=== PATIENT | male | born 1955 | race Caucasian/White ===

== ENCOUNTER 2022-03-24 10:24 | Outpatient (CLI) | payer MEDICARE, SELFPAY ==
[2022-03-24 20:00] LABS: NT Pro B Type Natriuretic Pept 93 pg/mL (5-100)
== END 2022-03-24 10:25 | disposition home or self-care (01) ==
PROVIDERS: Visit Provider Internal Medicine Cardiovascular Disease
DX: Q23.1 Congenital insufficiency of aortic valve (principal); R06.02 Shortness of breath
CPT/HCPCS: 36415; 83880

== ENCOUNTER 2022-04-01 09:09 | Outpatient (CLI) | payer MEDICARE, SELFPAY ==
[2022-04-01 19:26] LABS: Cholesterol 161 mg/dL (0-200); HDL Direct 54 mg/dL; Triglycerides 87 mg/dL (<150)
[2022-04-01 19:37] LABS: LDL Cholesterol Direct 75 mg/dL
== END 2022-04-01 09:10 | disposition home or self-care (01) ==
LOC: ANHGOSHLAB 09:12
PROVIDERS: Visit Provider Internal Medicine Cardiovascular Disease
DX: R73.09 Other abnormal glucose (principal); E78.5 Hyperlipidemia, unspecified
CPT/HCPCS: 36415; 80061

== ENCOUNTER 2022-11-19 09:01 | Outpatient (CLI) | payer MEDICARE, SELFPAY ==
[2022-11-19 09:43] LABS: Hematocrit 47.1 % (42.0-52.0); Hemoglobin 15.6 g/dL (14.0-18.0); Mean Corpuscular HGB Conc 33.1 g/dl (32-36); Mean Corpuscular Hemoglobin 31.3 pg (26-34); Mean Corpuscular Volume 94.4 fl (80-100); Mean Platelet Volume 9.5 fl (7.4-10.4); Platelet Count Result 250 k/mm3 (150-375); Red Blood Count 4.99 M/mm3 (4.6-6.20); Red Cell Distribution Width 12.8 % (11.5-14.5); White Blood Count 6.2 K/mm3 (4.5-10.0)
[2022-11-19 09:59] LABS: CRP 0.8 mg/dL (<1.0)
[2022-11-19 12:47] LABS: Erythrocyte Sedimentation Rate 4 mm/hr (0-20)
== END 2022-11-19 09:02 | disposition home or self-care (01) ==
PROVIDERS: Visit Provider Nurse Practitioner
DX: K51.90 Ulcerative colitis, unspecified, without complications (principal)
CPT/HCPCS: 36415; 85027; 85652; 86140

== ENCOUNTER 2023-02-19 09:26 | Outpatient (CLI) | payer MEDICARE, SELFPAY ==
[2023-02-19 14:42] LABS: NT Pro B Type Natriuretic Pept 47 pg/mL (19.9-100)
== END 2023-02-19 09:27 | disposition home or self-care (01) ==
PROVIDERS: Visit Provider Internal Medicine Cardiovascular Disease
DX: I35.0 Nonrheumatic aortic (valve) stenosis (principal); R06.09 Other forms of dyspnea
CPT/HCPCS: 36415; 83880

== ENCOUNTER 2023-03-24 01:16 | Day surgery (SDC) | payer MEDICARE, SELFPAY ==
[2023-03-10 13:27] VITALS: BMI 43.2
--- NOTE | 2023-03-22 09:32 | SUR.PREOP ---
Patient called regarding upcoming procedure. Reviewed preop instructions, appointment times, and procedure prep.
--- NOTE | 2023-03-23 15:17 | PM.HPGS ---
History of Present Illness History of Present Illness Consent: Risks, benefits, and alternatives have been discussed and questions answered. Patient agrees to proceed with procedure. Chief complaint: Ulcerative colitis, unspecified, without complicat Narrative: Ike Parker is a 67 year old male with chronic ulcerative colitis. He was diagnosed 25 years ago. He previously been under the care of Dr. Koenig, whom he has last seen when he had a colonoscopy 5 years ago. He has been maintained on sulfasalazine 1 g twice a day for many years. He also had adenomatous polyps removed at that time his last colonoscopy was advised to have repeat examination 2 years later. Review of Systems Review of Systems: All systems reviewed & are unremarkable except as noted in HPI and below PMFSH Past Medical History Medical History Aortic stenosis Hx of adenomatous colonic polyps Hypertension Obesity Ulcerative colitis Social History Social History Smoking status: Never smoker Alcohol intake: never Substance use: never Substance use type: does not use Living arrangements: alone Spiritual care concerns: No Meds Home Medications and Allergies Home Medications Medication Instructions Recorded Confirmed Type calcium carb-vit D3-minerals 600 600 tablet PO DAILY 10/07/22 03/10/23 History mg calcium-200 unit tablet folic acid 1 mg tablet 1 mg PO DAILY 10/07/22 03/10/23 History sulfasalazine 500 mg tablet 2 g PO DAILY 10/07/22 03/10/23 History atorvastatin 40 mg tablet mg 03/10/23 History hydrochlorothiazide 25 mg tablet 25 mg PO DAILY 03/10/23 03/10/23 History valsartan 160 mg tablet 40 mg PO DAILY 03/10/23 03/10/23 History Allergies Allergy/AdvReac Type Severity Reaction Status Date / Time No Known Allergies Allergy Verified 03/10/23 13:26 Exam Const: General: alert Orientation/consciousness: patient oriented x3 Resp: Auscultation: clear to auscultation bilaterally Cardio: Rhythm: regular rhythm GI: GI Palp: Yes Soft to palpation and No Tenderness to palpation present (GI) Neuro: General: patient oriented x3 Assessment and Plan Assessment and plan (1) Ulcerative colitis: Code(s): K51.90 - Ulcerative colitis, unspecified, without complications Status: Acute Assessment and Plan: Colonoscopy with possible biopsy or polypectomy or cautery or injection of substances. (2) Hx of adenomatous colonic polyps: Code(s): Z86.010 - Personal history of colonic polyps Status: Acute
[2023-03-24 13:04] VITALS: BP 137/80; PULSE 80; RESP 18; TEMP 36.3; O2SAT 98
--- NOTE | 2023-03-24 13:16 | P.PNAN_ITS ---
Anes - Initial Pre Proc Eval Procedure: Operation Date: 03/24/23 14:00 Proposed Procedures p Colonoscopy - Brent Rocha MD Date/Time: 03/24/23 13:16 Surgeon: Brent Rocha MD Pre Op Diagnosis: Ulcerative colitis, unspecified, without complicat Patient Data Age: 67 Gender: M Height: 1.78 m Weight: 139.9 kg Last Vital Signs Temp 97.3 F L 03/24/23 13:04 Pulse 80 03/24/23 13:04 Resp 18 03/24/23 13:04 BP 137/80 03/24/23 13:04 Pulse Ox 98 03/24/23 13:04 O2 Del Method Room Air 03/24/23 13:04 Allergies Allergy/AdvReac Type Severity Reaction Status Date / Time No Known Allergies Allergy Verified 03/24/23 13:02 Home Medications Medication Instructions Recorded Confirmed Type calcium carb-vit D3-minerals 600 600 tablet PO DAILY 10/07/22 03/24/23 History mg calcium-200 unit tablet folic acid 1 mg tablet 1 mg PO DAILY 10/07/22 03/24/23 History sulfasalazine 500 mg tablet 2 g PO DAILY 10/07/22 03/24/23 History atorvastatin 40 mg tablet 40 mg PO DAILY 03/10/23 03/24/23 History hydrochlorothiazide 25 mg tablet 25 mg PO DAILY 03/10/23 03/24/23 History valsartan 160 mg tablet 40 mg PO DAILY 03/10/23 03/24/23 History Patient hx anesthesia problems: none Family hx anesthesia problems: none Results Review: All pre-operative results and documents have been reviewed as part of the pre- operative evaluation. [facility] Past Medical History Medical History Aortic stenosis Hx of adenomatous colonic polyps Hypertension Obesity Ulcerative colitis Social History Social History Smoking status: Never smoker Alcohol intake: never Substance use: never Substance use type: does not use Living arrangements: alone Spiritual care concerns: No Anes - Eval Final PreProcedure Day of Procedure 03/24/23 13:16 Patient weight: morbidly obese Heart: regular rate and rhythm Lungs: clear to auscultation Airway: Mallampati scale class II Neurological: alert and oriented Last oral intake: >/= 8 hours ASA classification: III Emergent: no Anesthetic plan: proceed Anesthesia type and monitoring: general GIVS and standard monitoring Results Review: All pre-operative results and documents have been reviewed as part of the pre- operative evaluation. Informed Consent: The patient's anesthetic plan and its attendant risks and benefits were discussed with the patient/family/POA. Questions were solicited and answers provided to the satisfaction of the patient/family/POA.
[2023-03-24] MEDS: LACTATED RINGERS 1,000 ML 150 ML IV CONT (13:17)
[2023-03-24 13:42] VITALS: BP 100/61; PULSE 79; RESP 16; O2SAT 92
[2023-03-24 13:52] VITALS: BP 109/74; PULSE 78; RESP 19; O2SAT 97
[2023-03-24 14:02] VITALS: BP 122/77; PULSE 75; RESP 19; O2SAT 98
== END 2023-03-24 14:17 | disposition home or self-care (01) ==
PROVIDERS: PCP Family Medicine; Visit Provider Internal Medicine Gastroenterology
PROC: 0DJD8ZZ Inspection of Lower Intestinal Tract, Via Natural or Artificial Opening Endoscopic (ICD-10-PCS; CPT 45378; principal; 2023-03-24 14:00)
DX: K51.90 Ulcerative colitis, unspecified, without complications (principal); K64.8 Other hemorrhoids; K57.30 Diverticulosis of large intestine without perforation or abscess without bleeding; Z86.010 Personal history of colon polyps; I10 Essential (primary) hypertension; E66.01 Morbid (severe) obesity due to excess calories; Z68.41 Body mass index [BMI] 40.0-44.9, adult
CPT/HCPCS: 45380; 88305; J2704; J7120

== ENCOUNTER 2024-10-25 08:51 | Outpatient (CLI) | payer MEDICARE, SELFPAY ==
--- OUTSIDE RECORDS SUMMARY | 2024-10-25 09:01 | XMS_ITS | Clinical Summary ---
Author Organization [facility] Address [address] [place] [address] Care Team Providers Care Campaign Marketing Manager Name Role Phone Dani Elam MD Primary Care Provider [phone] Miscellaneous, Not In File Unavailable Unava ilable Allergies No known active allergies Medications valsartan (DIOVAN) 320 mg tablet Take 1 tablet by mouth daily 9 Active aspirin 325 mg tabletIndication s:cerebral ischemia,Cerebra l Ischemia Take 1 tablet (325 mg total) by mouth daily 30 tablet 11 9 Active atorvastatin (LIPITOR) 40 mg tablet Take 1 tablet (40 mg total) by mouth daily 3 Active hydroCHLOROthiaz janie (HYDRODIURIL) 25 mg tablet Take 1 tablet (25 mg total) by mouth daily 3 Active cholecalciferol (VITAMIN D-3) 57703 unit tablet Take 0.12 tablets (1,200 Units total) by mouth daily Active multivitamin,tx- plnf-Vm-BA-min 27-0.4 mg tablet Take 1 tablet by mouth daily Active azelastine (ASTELIN) 137 mcg (0.1 %) nasal spray INSTILL 2 SPRAYS IN EACH NOSTRIL DAILY BED TIME 5 Active chlorhexidine (PERIDEX) 0.12 % oral rinseIndications :Mouth Infection Prevention Apply 15 mL to the mouth or throat 3 (three) times a day for 5 days 225 mL 5 12/02/19 25 Active mupirocin (BACTROBAN) 2 % ointmentIndicati ons:Methicillin- Resistant S. Aureus Nasal Colonization Apply to each nostril 2 (two) times a day for 5 days Apply topically 2 (two) times a day Apply to both nostrils twice daily for 5 days prior to surgery 22 g 5 12/02/19 25 Active sulfaSALAzine (AZULFIDINE) 500 mg tablet Take 500 mg by mouth 4 (four) times a day 09/27/19 25 Discontin ued(Thera py completed ) folic acid (FOLVITE) 1 mg tablet Take 1 tablet by mouth daily 9 09/27/19 25 Discontin ued(Thera py completed ) simvastatin (ZOCOR) 40 mg tablet Take 1 tablet by mouth nightly 9 09/27/19 25 Discontin ued(Thera py completed ) Hospital, Clinic, or Other Facility Administered Medication Ordered Dose Route Frequency Start Date End Date Status perflutren protein-a (OPTISON) 3 mL in sodium chloride 0.9% 8 mL syringe 1 - 8 mL IV Once in imaging 09/26/2024 09/26/2024 Ended Active Problems Problem Noted Date Diagnosed Date Nonrheumatic aortic valve stenosis 10/23/2024 Essential hypertension 02/01/2019 Hyperlipidemia 02/01/2019 Ulcerative colitis without complications 019 Murmur, cardiac 02/01/2019 Transient memory loss 02/01/2019 Class 3 severe obesity in adult 02/01/2019 Transient alteration of awareness Encounters Date Type Department Care Team Description 10/24/2024 Orders Only [facility] Cardiothoracic Surgery [address] [place] [address] Advanced Medicine 8th Floor [address] Room [address] [place] [phone] Daniel Pedraza MD 10/23/2024 Orders Only [facility] Cardiothoracic Surgery [facility] Medicine 8th Floor [address] Room [address] [place] [phone] Daniel Pedraza MD Nonrheumatic aortic valve stenosis (Primary Dx) 10/23/2024 Documentation [facility] Cardiology [facility] Medical Office Building [address] [place] [phone] Sindy Fernandes NP 10/20/2024 Telephone [facility] Cardiology [address] [place] [address] Advanced Medicine 8th [place] [address] [place] [phone] Marty Norman MD 10/06/2024 Telephone [facility] Cardiology [address] [facility] Advanced Medicine 8th [place] [address] [place] [address] Marty Norman MD 09/28/2024 Telephone [facility] Cardiology [address] [facility] 8th [place] [address] [place] [address] Loretta Whalen RN 09/26/2024 2:40 PM CDT Lab [facility] [address] [address] [address] Essential hypertension; Abnormal finding of blood chemistry, unspecified; Abnormal coagulation profile 09/26/2024 2:20 PM CDT - 09/26/2024 11:59 PM CDT Hospital Encounter [facility] Imaging [address] [address] [address] María Oliveros MD Aortic valve stenosis, etiology of cardiac valve disease unspecified Discharge Disposition: Discharge to home or self care 09/26/2024 1:00 PM CDT Office Visit [facility] Surgery [address] [place] [address] [address] [place] [address] Aortic valve stenosis, severe 09/26/2024 1:00 PM CDT Office Visit [facility] Cardiology [address] [place] [address] Office Building [address] [place] [address] Marty Norman MD Essential hypertension (Primary Dx); Abnormal finding of blood chemistry, unspecified; Abnormal coagulation profile; Hyperlipidemia, unspecified hyperlipidemia type; Class 3 severe obesity in adult; Transient memory loss 09/26/2024 10:00 AM CDT Ancillary Procedure [facility] [address] [place] [address] [address] [place] [address] Aortic valve stenosis, etiology of cardiac valve disease unspecified 09/26/2024 Results Follow-Up [facility] Cardiology [address] [place] [address] Office [facility] [address] [place] [address] Marty Norman MD ECG 12 lead 09/11/2024 1:49 PM CDT - 09/11/2024 11:59 PM CDT Hospital Encounter [facility] [address] [place], [place] [phone] Discharge Disposition: Discharge to home or self care 09/06/2024 Telephone [facility] Cardiology [address] [facility] Advanced Medicine 8th [place] [address] [place] [phone] GibbsLinda zamora 09/06/2024 Telephone [facility] Cardiology [facility] Advanced Medicine 8th [place] [address] [place] [address] Martin Mathews, URIEL 08/17/2024 Telephone [place] [phone] [facility] Advanced [facility] 8th [place] [address] [place] [address] Michelle Thomas from Last 3 Months Immunizations Immunization Administration Dates Next Due Influenza, Quadrivalent, Spl it, Preservative Free, Intramuscular 02/01/2019 Social History Tobacco Use Types Packs/Day Years Used Date Smoking Tobacco: Never Smokeless Tobacco: Never Alcohol Use Standard Drinks/Week Comments Never 0 (1 standard drink = 0.6 oz pur e alcohol) AUDIT-C Answer Date Recorded Frequency of Alcohol Consumption Never 01/31/2019 Average Number of Drinks Not on file 019 Frequency of Binge Drinking Not on file 01/11 PHQ-2 Answer Date Recorded PHQ-2 Score 0 01/31/2019 Sex and Gender Information Value Date Recorded Sex Assigned at Not on file 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 Gender Identity Not on file Sexual Orientation Not on file Obstetrics History Last Filed Vital Signs Vital Sign Reading Time Taken Comments Blood Pressure 138/92 09/26/2024 12:46 PM CDT Pulse 69 09/26/2024 12:46 PM CDT Temperature 36.9 C (98.5 F) 02/01/2019 3:24 PM CDT Respiratory Rate 18 02/01/2019 3:24 PM CDT Oxygen Saturation 98% 09/26/2024 12: 46 PM CDT Inhaled Oxygen Concentration - - Weight 137.6 kg (303 lb 6.4 oz) 025 12:46 PM CDT Height 177.8 cm (5' 10) 09/26/2024 12: 46 PM CDT Body Mass Index 43.53 09/26/2024 12:46 PM CDT Plan of Treatment Upcoming Encounters Date Type Department Care Team (Latest Contact Info) Description 11/15/2024 10:05 AM CDT Hospital Encounter [facility] [address] [place] [address] Rolando Reddy MD [address] [place] [address] Nonrheumatic aortic valve stenosis 11/15/2024 10:05 AM CDT - 11/15/2024 11:20 AM CDT Surgery [facility] [address] [place] [address] Rolando Reddy MD [address] [place] [address] LEFT HEART CATHETERIZATION WITH CORONARY ANGIOGRAPHY AND WITH OR WITHOUT LEFT VENTRICULOGRAM [id number] 12/01/2024 7:00 AM CDT Hospital Encounter [facility] Operating Room 1 [place] [address] Daniel Pedraza MD [address] [facility] [id number] [place] [address] 12/01/2024 7:00 AM CDT - 12/01/2024 2:10 PM CDT Surgery [facility] Operating Room [address] [place] [address] Daniel Pedraza MD [address] [facility] [id number] [place] [address] REPLACEMENT AORTIC VALVE/ROOT-AVR WITH POSS ANNULAR ENLARGEMENT Scheduled Procedures Name Priority Associated Diagnoses Date/Ti me REPLACEMENT AORTIC VALVE/ROOT Nonrheumatic aortic valve stenosis 12/01/2024 7:00 AM CDT REPAIR ANEURYSM ASCENDING AORTIC - HYBRID ROOM Nonrheumatic aortic valve stenosis 12/01/2024 7:00 AM CDT Health Maintenance Due Date Last Done Comments Colon Cancer Screening-Colonoscopy 1955 Fall Risk Assessment 1955 Hepatitis C Screening 1955 Hepatitis B Screening 1972 Well Visit 65+ 2019 Depression Screening 02/01/2020 01/31/2019 Pneumococcal vaccine 65+ (2 of 2 - PCV) 02/03/2024 02/02/2023 Covid-19 Vaccine (2023-2 5 season) 2024 01/29/2024, 03/13/2023, 01/24/2022, Additional history exists Influenza Vaccine (#1) 2024 , 02/02/2023, 01/24/2022, Additional history exists DTaP/Tdap/Td Vaccine (2 - Td or Tdap) 01/28/2034 01/29/2024 Zoster Vaccine Completed 03/13/2023, 02/02/2023 Goals Goal Patient Goal Type Associated Problems Recent Progress Patient-Stated? Author Autogenerat ed Goal Care Plan Autogenerated Problem No Ely Rosa Autogenerat ed Goal Care Plan Autogenerated Problem No Brandy [place] RN Procedures Procedure Name Priority Date/Time Associated Diagnosis Comments CT TAVR Schedule Routine, Read Routine (OP Routine) 09/26/2024 2:48 PM CDT Aortic valve stenosis, etiology of cardiac valve disease unspecified POC ISTAT Routine 09/26/2024 2:45 PM CDT EGFR Routine 09/26/2024 2:36 PM CDT Essential hypertension DIFFERENTIAL AUTO Routine 09/26/2024 2:3 6 PM CDT Essential hypertension CRP, HIGH SENSITIVITY Routine 09/26/2024 2:36 PM CDT Essential hypertension PROTIME-INR Routine 09/26/2024 2:36 PM CDT Essential hypertension Abnormal coagulation profile HEMOGLOBIN A1C Routine 09/26/2024 2:36 PM CDT Essential hypertension Abnormal finding of blood chemistry, unspecified LIPOPROTEIN A (LPA) Routine 09/26/2024 2 :36 PM CDT Essential hypertension CBC WITH AUTO DIFFERENTIAL Routine 09/26/2024 2:36 PM CDT Essential hypertension COMPREHENSIVE METABOLIC PANEL Routine 09/26/2024 2:36 PM CDT Essential hypertension PRO B-TYPE NATRIURETIC PEPTIDE Routine 09/26/2024 2:36 PM CDT Essential hypertension ECG 12-LEAD Routine 09/26/2024 12:44 PM CDT Essential hypertension TRANSTHORACIC ECHO (TTE) COMPLETE W DOPPLER/CF W CONTRAST Routine 09/26/2024 10:44 AM CDT Aortic valve stenosis, etiology of cardiac valve disease unspecified US TRANSFER OF OUTSIDE FILMS Routine 09/11/2024 1:49 PM CDT from Last 3 Months Results * CT TAVR (09/26/2024 2:48 PM CDT) Anatomical Region Laterality Modality Chest N/A Computed Tomogra phy 09/26/2024 3:40 PM CDT Impressions 09/27/2024 9:39 AM CDT 1. Aortic annulus, and abdominal aortic, common iliac, external iliac, and femoral artery measurements in preparation for TAVR procedure as described above. 2. Aortic valve calcium score: Agatston 9799, volume 7888 mm3. 3. Mildly dilated ascending thoracic aorta measuring up to 4.2 cm in diameter. Dictated by: Prachi Granger MD The radiology attending physician has personally reviewed this study, and had reviewed and/or edited this written report and agrees with it. Electronically signed by: Daniel Carpio M.D. Narrative 09/27/2024 9:39 AM CDT EXAMINATION: CT TAVR HISTORY: Severe aortic stenosis, pre-TAVR procedure. TECHNIQUE: Heart CT and CT angiogram of the abdomen and pelvis performed during intravenous administration of 125 mL of Optiray 350 per the TAVR Protocol. Images were transferred to an independent workstation for additional 3D post-processing. COMPARISON: None available FINDINGS: Annulus and thoracic aortic measurements (in systole): Aortic valve annulus: Area 669 mm2; circumference 99 mm; 32 mm maximum diameter x 22 mm minimum diameter Sinuses of Valsalva: 42 mm x 41 mm x 40 mm [id number] Sinotubular junction: 39 mm x 40 mm Ascending aorta: 42 mm x 41 mm Distance to RCA ostium from aortic valve annulus: 24 mm Distance to left main ostium from annulus: 13 mm Deployment angle: 12 UPPER SORBIAN, 33 Caudal Right coronary sinus height: 25 mm Left coronary sinus height: 22 mm Non-coronary sinus height: 27 mm Aortic valve calcium score: Agatston 9799, volume 7888 mm3 There is moderate left ventricular outflow tract calcification. There is mild mitral annular calcification. Coronary arteries: Anomalous coronary artery course: No Left main atherosclerosis: None LAD atherosclerosis: Mild Circumflex atherosclerosis: None RCA atherosclerosis: None Abdominal aortic and pelvic arterial smallest diameter measurements (made from centerline curved MPRs): Infrarenal aorta: 17 mm x 18 mm. There is no calcification. Right common iliac artery: 12 mm x 12 mm. There is no calcification. Left common iliac artery: 11 mm x 12 mm. There is no calcification. Right external iliac artery: 9 mm x 9 mm. There is no calcification. Left external iliac artery: 9 mm x 9 mm. There is no calcification. Right common femoral artery: 10 mm. There is no calcification. Left common femoral artery: 9 mm. There is no calcification. Other findings: Chest: No thoracic lymphadenopathy. Heart size is normal, no pericardial effusion. Normal caliber main pulmonary artery. Normal thyroid. Nondistended esophagus. Central airways widely patent. No pulmonary consolidation, pleural effusion, or pneumothorax. No suspicious pulmonary nodule. Abdomen/pelvis: No focal hepatic lesion. Cholelithiasis without findings of acute cholecystitis. Portal veins are patent. No biliary ductal dilatation. Normal spleen, pancreas, adrenal glands. Kidneys enhance symmetrically without hydronephrosis. Normal urinary bladder and prostate gland. Small large bowel normal caliber without obstruction. Normal stomach and duodenum. No abdominal or pelvic lymphadenopathy. No intraperitoneal free fluid or free air. The abdominal aorta is non-aneurysmal. No suspicious osseous lesion. Procedure Note Daniel Carpio MD PhD - 09/27/2024 EXAMINATION: CT TAVR HISTORY: Severe aortic stenosis, pre-TAVR procedure. TECHNIQUE: Heart CT and CT angiogram of the abdomen and pelvis performed during intravenous administration of 125 mL of Optiray 350 per the TAVR Protocol. Images were transferred to an independent workstation for additional 3D post-processing. COMPARISON: None available FINDINGS: Annulus and thoracic aortic measurements (in systole): Aortic valve annulus: Area 669 mm2; circumference 99 mm; 32 mm maximum diameter x 22 mm minimum diameter Sinuses of Valsalva: 42 mm x 41 mm x 40 mm [id number] Sinotubular junction: 39 mm x 40 mm Ascending aorta: 42 mm x 41 mm Distance to RCA ostium from aortic valve annulus: 24 mm Distance to left main ostium from annulus: 13 mm Deployment angle: 12 UPPER SORBIAN, 33 Caudal Right coronary sinus height: 25 mm Left coronary sinus height: 22 mm Non-coronary sinus height: 27 mm Aortic valve calcium score: Agatston 9799, volume 7888 mm3 There is moderate left ventricular outflow tract calcification. There is mild mitral annular calcification. Coronary arteries: Anomalous coronary artery course: No Left main atherosclerosis: None LAD atherosclerosis: Mild Circumflex atherosclerosis: None RCA atherosclerosis: None Abdominal aortic and pelvic arterial smallest diameter measurements (made from centerline curved MPRs): Infrarenal aorta: 17 mm x 18 mm. There is no calcification. Right common iliac artery: 12 mm x 12 mm. There is no calcification. Left common iliac artery: 11 mm x 12 mm. There is no calcification. Right external iliac artery: 9 mm x 9 mm. There is no calcification. Left external iliac artery: 9 mm x 9 mm. There is no calcification. Right common femoral artery: 10 mm. There is no calcification. Left common femoral artery: 9 mm. There is no calcification. Other findings: Chest: No thoracic lymphadenopathy. Heart size is normal, no pericardial effusion. Normal caliber main pulmonary artery. Normal thyroid. Nondistended esophagus. Central airways widely patent. No pulmonary consolidation, pleural effusion, or pneumothorax. No suspicious pulmonary nodule. Abdomen/pelvis: No focal hepatic lesion. Cholelithiasis without findings of acute cholecystitis. Portal veins are patent. No biliary ductal dilatation. Normal spleen, pancreas, adrenal glands. Kidneys enhance symmetrically without hydronephrosis. Normal urinary bladder and prostate gland. Small large bowel normal caliber without obstruction. Normal stomach and duodenum. No abdominal or pelvic lymphadenopathy. No intraperitoneal free fluid or free air. The abdominal aorta is non-aneurysmal. No suspicious osseous lesion. IMPRESSION: 1. Aortic annulus, and abdominal aortic, common iliac, external iliac, and femoral artery measurements in preparation for TAVR procedure as described above. 2. Aortic valve calcium score: Agatston 9799, volume 7888 mm3. 3. Mildly dilated ascending thoracic aorta measuring up to 4.2 cm in diameter. Dictated by: Prachi Granger MD The radiology attending physician has personally reviewed this study, and had reviewed and/or edited this written report and agrees with it. Electronically signed by: Daniel Carpio M.D. María Oliveros MD IMG CT PROCEDURES Final R esult * POC ISTAT (09/26/2024 2:45 PM CDT) [facility] Creatinine, POC, bld 1.0 0.6 - 1.3 mg/dL POC Device Number [id number] [facility]ERT[facility] POC Performer [id number] [facility] HAGAN Blood 09/26/2024 2:45 PM CDT 09/26/2024 2:45 PM CDT María Oliveros MD LAB BLOOD ORDERABLES Page l Result [facility] [address] [facility]. [place] [address] * eGFR (09/26/2024 2:36 PM CDT) [facility] eGFR >90 >=60 mL/min/1. 73 m2 Comment: Interpretive Data Reference Interval Normal >/= 90 mL/min/1.73m2 Mildly decreased* 60 - 89 mL/min/1.73m2 Mildly to moderately decreased 45 - 59 mL/min/1.73m2 Moderately to severely decreased 30 - 44 mL/min/1.73m2 Severely decreased 15 - 29 mL/min/1.73m2 Kidney Failure < 15 mL/min/1.73m2 *Relative to young adult level Estimated glomerular filtration rate is determined by the 2020 CKD-EPI equation recommended by the National Kidney Foundation (A Unifying Approach to GFR Estimation: Recommendations of the NKF-ASK Task Force on Reassessing the Inclusion of Race in Diagnosing Kidney Disease, JASN 202). The CKD-EPI equation should not be used for patients with unstable renal function and has not been validated in children and those over 70. Current interpretive data was last reviewed 2021. Blood 09/26/2024 2:36 PM CDT 09/26/2024 4:36 PM CDT us Marty Norman MD LAB BLOOD ORDERABLES Final Res ult [facility] [address] [facility]. Department [place] [address] * Differential, auto (09/26/2024 2:36 PM CDT) Neutrophil abs 5.21 1.50 - 6.50 K/cumm Imm gran abs 0.02 0.00 - 0.10 K/cumm [facility] Lymphocyte abs 1.64 0.80 - 3.30 K/cumm [facility] Monocyte abs 0.64 0.20 - 0.80 K/cumm [facility] Eosinophil abs 0.31 0.00 - 0.50 K/cumm [facility] Basophil abs 0.05 0.00 - 0.10 K/cumm [facility] Neutrophil pct 66.3 % [facility] Comment: Interpretive Data Percent cell count reference ranges are not reported, since discordance with absolute values may lead to misinterpretation of CBC data. Current Interpretive Data was last revised on 2017. Imm gran pct 0.3 % [facility] Comment: Interpretive Data Percent cell count reference ranges are not reported, since discordance with absolute values may lead to misinterpretation of CBC data. Current Interpretive Data was last revised on 2017. Lymphocyte pct 20.8 % [facility] Comment: Interpretive Data Percent cell count reference ranges are not reported, since discordance with absolute values may lead to misinterpretation of CBC data. Current Interpretive Data was last revised on 2017. Monocyte pct 8.1 % [facility]AGAN Comment: Interpretive Data Percent cell count reference ranges are not reported, since discordance with absolute values may lead to misinterpretation of CBC data. Current Interpretive Data was last revised on 2017. Eosinophil pct 3.9 % [facility] HAGAN Comment: Interpretive Data Percent cell count reference ranges are not reported, since discordance with absolute values may lead to misinterpretation of CBC data. Current Interpretive Data was last revised on 2017. Basophil pct 0.6 % [facility] HAGAN Comment: Interpretive Data Percent cell count reference ranges are not reported, since discordance with absolute values may lead to misinterpretation of CBC data. Current Interpretive Data was last revised on 2017. Blood 09/26/2024 2:36 PM CDT 09/26/2024 3:05 PM CDT us Marty Norman MD LAB BLOOD ORDERABLES Final Res ult [facility] [address] [facility]. Department [place] [address] * Pro B-type natriuretic peptide (09/26/2024 2:36 PM CDT) NT-proBNP 242 <=300 pg/mL Comment: Interpretive Comments: A. Dyspnea in Acute Care Setting All Ages: < 300 pg/ml, acute heart failure unlikely. < 50 yrs: 300 - 450 pg/ml, further investigation warranted. > 450 pg/ml, acute heart failure likely. 50 - 74 yrs: 300 - 900 pg/ml, further investigation warranted. > 900 pg/ml, acute heart failure likely . > or = 75 yrs: 450 - 1800 pg/ml, further investigation warranted. > 1800 pg/ml, acute heart failure likely. B. Non-acute Setting < 75 yrs < 125 pg/ml, rules out heart failure. > or = 125 pg/ml, further investigation warranted. > or = 75 yrs < 450 pg/ml, rules out heart failure. > or = 450 pg/ml, further investigation warranted. - Knowledge of each individual patient's NT-proBNP range may be more useful than using similar cut-points for every patient. Please note that marked elevations in NT-proBNP levels may be observed in state other than Left Ventricular Congestive Failure, including: acute coronary syndromes, right heart strain/failure (including pulmonary embolism and cor pulmonale), critical illness, renal failure, as well as advanced age. - References: 1. Garry KC et.al. Eur Heart J. 2006:27:330-337. 2. Jerrell RW, Myranda SPRINGER. J. AM Perry Cardiol: Cardiovasc Imag. 2009;2: 216- 225. Interpretive Data Last Revised Date: 2017. Blood 09/26/2024 2:36 PM CDT 09/26/2024 4:36 PM CDT us Marty Norman MD LAB BLOOD ORDERABLES Final Res ult [facility] [address] [facility]. Department [place] [address] * (ABNORMAL) CBC with auto differential (09/26/2024 2:36 PM CDT) WBC 7.87 3.80 - 9.90 K/cumm Hgb 17.2 13.0 - 17.5 g/dL [facility] W Hct 51.1(H) 38.9 - 50.3 % [facility] 254 150 - 400 K/cumm [facility] MPV 10.0 9.1 - 12.3 fL [facility] RBC 5.61 4.30 - 5.80 M/cumm [facility] MCV 91.1 81.3 - 96.4 fL [facility] MCH 30.7 27.1 - 33.3 pg [facility] W MCHC 33.7 32.3 - 35.7 g/dL [facility]CH RDW CV 12.9 11.1 - 14.9 % [facility] RDW SD 43.2 35.7 - 48.1 fL [facility] NRBC abs 0.00 0.00 - 0.01 K/cumm [facility] Blood 09/26/2024 2:36 PM CDT 09/26/2024 3:05 PM CDT us Marty Norman MD LAB BLOOD ORDERABLES Final Res ult CHU[facility] HAGAN [address] Department [place] [address] * (ABNORMAL) Lipoprotein a (LPa) (09/26/2024 2:36 PM CDT) Lipoprotein A 481(H) <75 nmol/L [facility] ref Lab Comment: Lp(a) confers increased risk for coronary disease and aortic stenosis starting at concentrations of 75 nmol/L and greater. Lp(a) >=125 nmol/L is considered a risk-enhancing factor for cardiovascular disease by several professional societies. Clinician-patient discussion of therapeutic strategy is warranted. ADDITIONAL INFORMATION Please notice that Lp(a) values are reported in molar units (nmol/L). These units are recommended by professional society guidelines and expert opinion statements. Measured results and risk thresholds are higher than those generated using mass units (mg/dL). Cardiovascular risk increases starting at 75 nmol/L. Lp(a) >=125 nmol/L is considered a risk enhancing factor by the [employer]. This test has been modified from the machine presser's instructions. Its performance characteristics were determined by [facility] in a manner consistent with CLIA requirements. This test has not been cleared or approved by the U.S. Food and Drug Administration. Test Performed by: [facility] [address] [address] [place]: Arturo Vilchis Ph.D.; CLIA# [id number] Blood 09/26/2024 2:36 PM CDT 09/26/2024 3:05 PM CDT Marty Norman MD LAB BLOOD ORDERABLES Final Res ult Performing Organization Address [facility] de Phone Number CHUY ROBERTSCH [address] [facility]. [facility] [place] [address] Fried ref [facility] * Protime-INR (09/26/2024 2:36 PM CDT) PT 11.0 9.7 - 13.0 sec INR 1.02 0.90 - 1.20 CHUY HAGAN Comment: Interpretive data Oral anticoagulant therapeutic ranges: Venous thromboembolism prophylaxis or treatment: 2.0-3.0 CARDIOLOGY Standard range: 2.0-3.0 High-intensity range: 2.5-3.5 Refer to indication-specific guidelines for appropriate target ranges for prosthetic heart valve replacement. Current interpretive data was last revised on 2019. Blood 09/26/2024 2:36 PM CDT 09/26/2024 3:05 PM CDT Marty Norman MD LAB BLOOD ORDERABLES Final Res t Performing Organization Address [facility] de Phone Number [facility] [id number] [facility]. [facility] [place] [address] * CRP (cardiac risk) (09/26/2024 2:36 PM CDT) hsCRP 2.51 mg/L Comment: Interpretive data Adult only - values greater than or equal to 10 mg/L are consistent with infection or inflammation. Individuals with evidence of active infection, systemic inflammatory processes, or trauma should not be tested until these conditions have abated. When using HS CRP to assess cardiovascular risk, two measurements should be taken, two weeks apart (averaging results). The CDC/AHA recommended the following HS CRP cut off points (tertiles) for CVD assessment. Adult low risk <1.0 mg/L Average risk 1.0 - 3.0 mg/L High Risk >3.0 mg/L Current interpretive data was last revised on 2017. Blood 09/26/2024 2:36 PM CDT 09/26/2024 4:36 PM CDT Marty Norman MD LAB BLOOD ORDERABLES Final Res t Performing Organization Address [facility] de Phone Number HCUY HAGAN [address] [facility] [place] [address] * (ABNORMAL) Hemoglobin A1c (09/26/2024 2:36 PM CDT) Pathologist [facility] Hgb A1C 6.0(H) 4.0 - 5.6 % Estimated Average Glucose 126 mg/dL [facility] Comment: The ADA recommends reporting an estimated Average Glucose (eAG) with all Hemoglobin A1c results using the equation derived from a study of 507 normal and diabetic adults. Minority populations were underrepresented and children were not included. (Diabetes Care 31:7624-8070, 2008). The eAG is not equivalent to a fasting glucose. Blood 09/26/2024 2:36 PM CDT 09/26/2024 3:05 PM CDT Marty Norman MD LAB BLOOD ORDERABLES Final Res ult Performing Organization Address [facility] de Phone Number CHUY HAGAN [address] [facility] [place] [address] * (ABNORMAL) Comprehensive metabolic panel (09/26/2024 2:36 PM CDT) [facility] Sodium 142 135 - 145 mmol/L Potassium, pl 3.9 3.3 - 4.9 mmol/L [facility] Chloride 99 97 - 110 mmol/L [facility] CO2 28 22 - 32 mmol/L [facility] Anion gap 16(H) 2 - 15 mmol/L [facility] BUN 18 6 - 25 mg/dL [facility] Creatinine 0.82 0.80 - 1.30 mg/dL [facility] Glucose 86 70 - 199 mg/dL [facility] Comment: Interpretive Data Fasting glucose >/= 126 mg/dl is diagnostic for diabetes. Fasting is defined as no caloric intake for at least 8 hours. Fasting glucose between 100 mg/dl to 125 mg/dl is diagnostic of prediabetes. In a patient with classic symptoms of hyperglycemia or hyperglycemic crisis, a random glucose >/= 200 mg/dl is diagnostic for diabetes. In the absence of unequivocal hyperglycemia, results should be confirmed by repeat testing. The classification and Diagnosis of Diabetes Diabetes Care 2021; 46: S19-S40. Current interpretive data was last revised 2022. Calcium 10.1 8.5 - 10.3 mg/dL [facility] Bilirubin, total 0.7 0.1 - 1.2 mg/dL [facility] Protein, pl 7.7 6.5 - 8.5 g/dL [facility] Albumin 4.7 3.5 - 5.0 g/dL [facility] Alk phos 82 40 - 130 Units/L [facility] ALT 27 7 - 55 Units/L [facility] AST 27 10 - 50 Units/L [facility] Blood 09/26/2024 2:36 PM CDT 09/26/2024 4:36 PM CDT Marty Norman MD LAB BLOOD ORDERABLES Final Res ult CHUY HAGAN [id number] [facility]. [place] [address] * ECG 12 lead (09/26/2024 12:44 PM CDT) Marty Norman MD ECG ORDERABLES Edited Result - Final * TRANSTHORACIC ECHO (TTE) COMPLETE W DOPPLER/CF W CONTRAST (09/26/2024 10:44 AM CDT) EF Mod BP 53 % CONS SCIMAGE Anatomical Region Laterality Modality Ultrasound 09/26/2024 9:48 AM CDT Narrative 09/27/2024 2:07 PM CDT [facility] [address], [address] [place] [address] Transthoracic Echocardiographic Report Patient Name: IKE RAPHAEL M : 1955 (69y 4m) Gender: M Study Date: 09/26/2024 09:48:10 AM Ht(Inch): 70 Wt(Lb): 279.1 BSA: 2.5 Sales Support Coordinator: ROLLY Posada Location: [facility] Order Provider: MARÍA OLIVEROS Heart Rate: 71 BMI: 40.04 BP: 161 / 98 Ref Provider: MARÍA OLIVEROS PROCEDURES: Echocardiographic Report: Transthoracic complete echo with strain imaging and contrast, 2D, spectral and tissue Doppler, color flow Doppler, M-mode. Contrast: Contrast Enhancement was Employed: After initial imaging due to sub- optimal quality related to co-morbidity defined by patient's body habitus, due to suboptimal image quality with inadequate visualization of at least 2 of 16 LV wall segments in any view after initial imaging. Perflutren contrast was administered using the volume necessary to obtain adequate images and. 0.8 ml Optison Administered, (2.2 ml wasted). Technically difficult study due to: Poor acoustic windows. INDICATIONS: I35.0 Nonrheumatic aortic (valve) stenosis. CONCLUSIONS: 1. Normal left ventricular cavity size based on volume index. Concentric LV hypertrophy. Normal left ventricular systolic function. The Ejection Fraction (Perla's) is measured at 53 %. Grade I diastolic dysfunction (normal LA pressure). The average global longitudinal strain is abnormal. 2. Normal right ventricular size. Normal right ventricular systolic function. 3. The aortic valve is functionally bicuspid. No aortic regurgitation. Severe aortic valve stenosis. The mean transaortic gradient is 45 mmHg. The aortic valve area by the continuity equation (using VTI) is 0.81 cm2. 4. Normal pericardium without pericardial effusion. 5. Normal aortic root size when indexed. 6. IVC is normal in size. 7. Unable to determine PASP due to inadequate TR jet. ATTESTATION: I have personally reviewed and interpreted this study without fellow or resident. - DISCLAIMER: The study images and the final report will be retained in the patient chart by the Echo Laboratory for the legally required time period. This chart constitutes the legal record of any testing performed. FINDINGS: Study Quality: Adequate. Left Ventricle: Normal left ventricular cavity size based on volume index. Concentric LV hypertrophy. Normal left ventricular systolic function. The Ejection Fraction (Perla's) is measured at 53 %. Grade I diastolic dysfunction (normal LA pressure). The average global longitudinal strain is abnormal. The LV global strain is: -8.7 %. Right Ventricle: Normal right ventricular size. Normal right ventricular systolic function. Left Atrium: The left atrium is normal in size. Right Atrium: The right atrium is normal in size. Mitral Valve: Mild mitral annular calcification. No mitral regurgitation. No stenosis present. Aortic Valve: The aortic valve is functionally bicuspid. No aortic regurgitation. Severe aortic valve stenosis. The mean transaortic gradient is 45 mmHg. The aortic valve area by the continuity equation (using VTI) is 0.81 cm2. Aortic valve dimensionless index is 0.16. Tricuspid Valve: Normal tricuspid valve structure. No tricuspid regurgitation. No tricuspid valve stenosis. Pulmonic Valve: Normal pulmonic valve structure. No pulmonic regurgitation. No pulmonic valve stenosis present. Pericardium: Normal pericardium without pericardial effusion. Aorta: Normal aortic root size when indexed. IVC: IVC is normal in size. PASP: Unable to determine PASP due to inadequate TR jet. MEASUREMENTS: 2D/MM Value Range Doppler Value Range LVIDd 2D 5.52 cm [ 4.20 - 5.80 ] AV Peak Harjinder 4.1 m/s [ 1.0 - 1.7 ] LVIDs 2D 3.48 cm [ 2.50 - 4.00 ] AV Peak PG 67.24 mmHg IVSd 2D 1.71 cm [ 0.60 - 1.00 ] AV Mean PG 45 mmHg LVPWd 2D 1.67 cm [ 0.60 - 1.00 ] AV VTI 98.9 cm LV Thickness Ratio 1.0 LVOT Peak Harjinder 0.6 m/s [ 0.7 - 1.1 ] LV FS 2D 36.94 % [ 25.00 - 43.00 ] LVOT Peak PG 1.44 mmHg LV Mass 2D 452.58 g LVOT Mean PG 1 mmHg LV Mass Index 2D 181.03 g/m2 LVOT VTI 15.5 cm RWT 0.61 LVOT Diam 2.57 cm EDV Mod BP 104.79 ml [ 62.00 - 150.00 ] HONEY VTI 0.81 cm2 LV EDV Index 41.92 ml/m2 LVOT/AV VTI 0.16 - Dimensionless index (DVI) ESV Mod BP 49.78 ml [ 21.00 - 61.00 ] MV E Peak Harjinder 0.6 m/s [ 0.6 - 1.3 ] EF Mod BP 53 % [ 52 - 72 ] MV A Peak Harjinder 0.8 m/s [ 1.0 - 1.2 ] LV GLS -8.7 % [ -25.0 - -18.0 ] MV E/A 0.8 ratio [ 0.8 - 1.5 ] LA Length 4C 5.67 cm MV Decel Time 206.61 msec [ 104.00 - 258.00 ] LA Length 2C 5.80 cm Med E` Harjinder 5.0 cm/sec [ 8.0 - 25.0 ] LA Volume BP 59.19 ml Lat E` Harjinder 4.8 cm/sec [ 10.0 - 25.0 ] LA Volume Index 23.68 ml/m2 [ 16.00 - 34.00 ] Average E/E` 12.24 RV Base Dimen 2D 3.6 cm [ 2.5 - 4.2 ] RV S` 14.31 cm/sec TAPSE 2.16 cm [ 1.71 - 5.00 ] TR Peak Harjinder 2.8 m/s [ 1.0 - 2.8 ] RA Volume 53.35 ml TR Peak PG 31.4 mmHg RA Volume Index 21.34 ml/m2 PV Peak Harjidner 1.1 m/s [ 0.4 - 0.8 ] AoR Diam 2D 3.92 cm [ 3.10 - 3.70 ] PV Peak PG 4.84 mmHg Ao Root Index 1.57 cm/m2 [ 1.00 - 2.00 ] PI ED Harjinder 101.27 m/sec Asc Ao Diam 2D 4.38 cm Asc Ao Index 1.75 cm/m2 Electronically Signed By: Marty Norman MD 09/27/2024 2:06:24 PM CDT Procedure Note Marty Norman MD - 09/27/2024 [facility] [address], [address] [place] [address] Transthoracic Echocardiographic Report Patient Name: IKE RAPHAEL M : 1955 (69y 4m) Gender: M Study Date: 09/26/2024 09:48:10 AM Ht(Inch): 70 Wt(Lb): 279.1 BSA: 2.5 Sales Support Coordinator: ROLLY Posada Location: [facility] Order Provider:MARÍA OLIVEROS Heart Rate: 71 BMI: 40.04 BP: 161 / 98 Ref Provider: MARÍA OLIVEROS PROCEDURES: Echocardiographic Report: Transthoracic complete echo with strain imagingand contrast, 2D, spectral and tissue Doppler, color flow Doppler, M-mode. Contrast: Contrast Enhancement was Employed: After initial imaging due tosub- optimal quality related to co-morbidity defined by patient's body habitus, due tosuboptimal image quality with inadequate visualization of at least 2 of 16 LV wallsegments in any view after initial imaging. Perflutren contrast was administered using thevolume necessary to obtain adequate images and. 0.8 ml Optison Administered, (2.2ml wasted). Technically difficult study due to: Poor acoustic windows. INDICATIONS: I35.0 Nonrheumatic aortic (valve) stenosis. CONCLUSIONS: 1. Normal left ventricular cavity size based on volume index. ConcentricLV hypertrophy. Normal left ventricular systolic function. The Ejection Fraction(Perla's) is measured at 53 %. Grade I diastolic dysfunction (normal LA pressure). The averageglobal longitudinal strain is abnormal. 2. Normal right ventricular size. Normal right ventricular systolicfunction. 3. The aortic valve is functionally bicuspid. No aortic regurgitation.Severe aortic valve stenosis. The mean transaortic gradient is 45 mmHg. The aortic valvearea by the continuity equation (using VTI) is 0.81 cm2. 4. Normal pericardium without pericardial effusion. 5. Normal aortic root size when indexed. 6. IVC is normal in size. 7. Unable to determine PASP due to inadequate TR jet. ATTESTATION: I have personally reviewed and interpreted this study without fellow orresident. - DISCLAIMER: The study images and the final report will be retained in the patientchart by the Echo Laboratory for the legally required time period. This chart constitutesthe legal record of any testing performed. FINDINGS: Study Quality: Adequate. Left Ventricle: Normal left ventricular cavity size based on volume index.Concentric LV hypertrophy. Normal left ventricular systolic function. The EjectionFraction (Perla's) is measured at 53 %. Grade I diastolic dysfunction (normal LA pressure).The average global longitudinal strain is abnormal. The LV global strain is: -8.7 %. Right Ventricle: Normal right ventricular size. Normal right ventricularsystolic function. Left Atrium: The left atrium is normal in size. Right Atrium: The right atrium is normal in size. Mitral Valve: Mild mitral annular calcification. No mitral regurgitation.No stenosis present. Aortic Valve: The aortic valve is functionally bicuspid. No aorticregurgitation. Severe aortic valve stenosis. The mean transaortic gradient is 45 mmHg. Theaortic valve area by the continuity equation (using VTI) is 0.81 cm2. Aortic valvedimensionless index is 0.16. Tricuspid Valve: Normal tricuspid valve structure. No tricuspidregurgitation. No tricuspid valve stenosis. Pulmonic Valve: Normal pulmonic valve structure. No pulmonicregurgitation. No pulmonic valve stenosis present. Pericardium: Normal pericardium without pericardial effusion. Aorta: Normal aortic root size when indexed. IVC: IVC is normal in size. PASP: Unable to determine PASP due to inadequate TR jet. MEASUREMENTS: 2D/MM Value Range DopplerValue Range LVIDd 2D 5.52 cm [ 4.20 - 5.80 ] AV Peak Vel4.1 m/s [ 1.0 - 1.7 ] LVIDs 2D 3.48 cm [ 2.50 - 4.00 ] AV Peak PG67.24 mmHg IVSd 2D 1.71 cm [ 0.60 - 1.00 ] AV Mean PG45 mmHg LVPWd 2D 1.67 cm [ 0.60 - 1.00 ] AV VTI98.9 cm LV Thickness Ratio 1.0 LVOT Peak Vel0.6 m/s [ 0.7 - 1.1 ] LV FS 2D 36.94 % [ 25.00 - 43.00 ] LVOT Peak PG1.44 mmHg LV Mass 2D 452.58 g LVOT Mean PG1 mmHg LV Mass Index 2D 181.03 g/m2 LVOT VTI15.5 cm RWT 0.61 LVOT Diam2.57 cm EDV Mod BP 104.79 ml [ 62.00 - 150.00 ] HONEY VTI0.81 cm2 LV EDV Index 41.92 ml/m2 LVOT/AV VTI0.16 - Dimensionless index (DVI) ESV Mod BP 49.78 ml [ 21.00 - 61.00 ] MV E Peak Vel0.6 m/s [ 0.6 - 1.3 ] EF Mod BP 53 % [ 52 - 72 ] MV A Peak Vel0.8 m/s [ 1.0 - 1.2 ] LV GLS -8.7 % [ -25.0 - -18.0 ] MV E/A0.8 ratio [ 0.8 - 1.5 ] LA Length 4C 5.67 cm MV Decel Ggls993.61 msec [ 104.00 - 258.00 ] LA Length 2C 5.80 cm Med E` Vel5.0 cm/sec [ 8.0 - 25.0 ] LA Volume BP 59.19 ml Lat E` Vel4.8 cm/sec [ 10.0 - 25.0 ] LA Volume Index 23.68 ml/m2 [ 16.00 - 34.00 ] Average E/E`12.24 RV Base Dimen 2D 3.6 cm [ 2.5 - 4.2 ] RV S`14.31 cm/sec TAPSE 2.16 cm [ 1.71 - 5.00 ] TR Peak Vel2.8 m/s [ 1.0 - 2.8 ] RA Volume 53.35 ml TR Peak PG31.4 mmHg RA Volume Index 21.34 ml/m2 PV Peak Vel1.1 m/s [ 0.4 - 0.8 ] AoR Diam 2D 3.92 cm [ 3.10 - 3.70 ] PV Peak PG4.84 mmHg Ao Root Index 1.57 cm/m2 [ 1.00 - 2.00 ] PI ED Fid138.27 m/sec Asc Ao Diam 2D4.38 cm Asc Ao Index1.75 cm/m2 Electronically Signed By: Marty Norman MD 09/27/2024 2:06:24 PM CDT us María Oliveros MD CV ECHO PROCEDURES Final Result * US Outside Reference (09/11/2024 1:49 PM CDT) Impressions [facility] - 09/11/2024 1:49 PM CDT These images are for Reference purposes only and have not been reviewed by [facility]. There will be no report generated by a [facility] Radiologist. Narrative [facility] - 09/11/2024 1:49 PM CDT EXAMINATION: Images For Reference Purposes Only us Marty Norman MD IMG US PROCEDURES Final Result [facility] from Last 3 Months Additional Health Concerns Active Problems Noted Date Diagnosed Date Autogenerated Problem 10/23/2024 Autogenerated Problem 10/24/[address] [facility] CHOICE [facility] HMO/PPO Address: [address] [address] [place] [address] [facility] Address: [address] [address] [place] [address] [facility] MEDICARE MEDICARE [facility] Advance Directives For more information, please contact: [phone] * Full Code (Latest Code Status on File) Date Activated Date Inactivated Comments 01/31/2019 9:49 PM 02/01/2019 8:29 PM * Full Code Date Activated Date Inactivated Comments 01/31/2019 5:52 PM 01/31/2019 9:49 PM Care Teams Campaign Marketing Manager Relationship Specialty Start Date End Date Dani Elam MD [address] [place] [address] PCP - General Family Medicine 08/10/24 Miscellaneous, Not In File Patient Service Specialist 09/06/24
--- OUTSIDE RECORDS SUMMARY | 2024-10-25 09:01 | XMS_ITS | Referral Summary ---
Author Organization [facility] Address [address] [place] [address] Care Team Providers Care Architectural Examiner Name Role Phone Dani Elam MD Primary Care Provider [phone] Miscellaneous, Not In File Unavailable Unava ilable Encounters Date Type Department Care Team Description 10/24/2024 Orders Only [facility] Cardiothoracic Surgery [address] [place] [address] Advanced Medicine 8th Floor [address] Room [address] [place] [phone] Daniel Pedraza MD 10/23/2024 Orders Only [facility] Cardiothoracic Surgery [address] [place] [address] Advanced Medicine 8th Floor [address] Room [address] [place] [phone] Daniel Pedraza MD Nonrheumatic aortic valve stenosis (Primary Dx) 10/23/2024 Documentation [facility] Cardiology [facility] Medical Office Building 3 [address] [place] [phone] Sindy Fernandes NP 10/20/2024 Telephone [facility] Cardiology [address] [place] [address] Advanced [facility] 8th [place] [address] [place] [address] Marty Norman MD 10/06/2024 Telephone [facility] Cardiology [address] [place] [address] Advanced [facility] 8th [place] [address] [place] [address] Marty Norman MD 09/28/2024 Telephone [facility] Cardiology [address] [place] [address] Advanced [facility] 8th [place] [address] [place] [address] Loretta Whalen RN 09/26/2024 2:[address] [facility] [address] [address] [address] Essential hypertension; Abnormal finding of blood chemistry, unspecified; Abnormal coagulation profile 09/26/2024 Results Follow-Up [facility] Cardiology [address] [place] [address] Building [address] [place] [address] Marty Norman MD ECG 12 lead 09/26/2024 1:00 PM CDT Office Visit [facility] Surgery [address] [place] [address] [address] [address] Aortic valve stenosis, severe 09/26/2024 1:00 PM CDT Office Visit [address] [place] [address] Marty Norman MD Essential hypertension (Primary Dx); Abnormal finding of blood chemistry, unspecified; Abnormal coagulation profile; Hyperlipidemia, unspecified hyperlipidemia type; Class 3 severe obesity in adult; Transient memory loss 09/26/2024 10:00 AM CDT Ancillary Procedure [facility] [address] [place] [address] [address] [address] Aortic valve stenosis, etiology of cardiac valve disease unspecified 09/26/2024 2:20 PM CDT - 09/26/2024 11:59 PM CDT Hospital Encounter [facility] [address] [address] [address] María Oliveros MD Aortic valve stenosis, etiology of cardiac valve disease unspecified Discharge Disposition: Discharge to home or self care 09/11/2024 1:49 PM CDT - 09/11/2024 11:59 PM CDT Hospital Encounter [facility] [address] [place] [address] Discharge Disposition: Discharge to home or self care 09/06/2024 Telephone [facility] Cardiology [address] [facility] Advanced Medicine 8th [place] [address] [place] [address] Linda Gibbs 09/06/2024 Telephone [facility] Cardiology [address] [facility] Advanced Medicine 8th [place] [address] [place] [phone] Martin Mathews, URIEL 08/17/2024 Telephone [facility] Cardiology [address] [facility] 8th [place] [address] [place] [phone] Michelle Thomas from Last 3 Months Allergies No known active allergies Medications valsartan [...] mouth daily 3 Active cholecalciferol (VITAMIN D-3) 16899 unit tablet Take 0.12 tablets (1,200 Units total) by mouth daily Active multivitamin,tx- umyv-Dq-EC-min 27-0.4 mg tablet Take 1 tablet by [...] in adult 02/01/2019 Transient alteration of awareness Immunizations Immunization Administration Dates Next Due Influenza, [...] on file Legal Sex 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 Gender Identity Not on file Sexual Orientation Not on file Last Filed Vital Signs Vital Sign Reading [...] Description 11/15/2024 10:05 AM CDT Hospital Encounter [facility] [address] [place] [address] Rolando Reddy MD [address] [place] [address] Nonrheumatic aortic valve stenosis 11/15/2024 10:05 AM CDT - 11/15/2024 11:20 AM CDT Surgery [facility] [place] [address] [place] [address] Rolando Reddy MD [address] [facility] [address] [place] [address] LEFT HEART CATHETERIZATION WITH CORONARY ANGIOGRAPHY AND WITH OR WITHOUT LEFT VENTRICULOGRAM [address] 12/01/2024 7:00 AM CDT Hospital Encounter [facility] Operating Room [address] [place] [address] Daniel Pedraza MD [address] [facility] [phone] [place] [address] 12/01/2024 7:00 AM CDT - 12/01/2024 2:10 PM CDT Surgery [facility] Operating Room [address] [place] [address] Daniel Pedraza MD [address] [facility] [address] [place] [address] REPLACEMENT AORTIC VALVE/ROOT-AVR WITH POSS ANNULAR ENLARGEMENT Scheduled Procedures Name Priority Associated Diagnoses Date/Ti me REPLACEMENT AORTIC VALVE/ROOT Nonrheumatic aortic valve stenosis 12/01/2024 7:00 AM CDT REPAIR ANEURYSM ASCENDING AORTIC - HYBRID ROOM Nonrheumatic aortic valve stenosis 12/01/2024 7:00 AM CDT Goals Goal Patient Goal Type Associated Problems Recent Progress Patient-Stated? Author Autogenerat ed Goal Care Plan Autogenerated Problem No Eyl Rosa Autogenerat ed Goal Care Plan Autogenerated Problem No Brandy Queen tibco developer Procedure Name Priority Date/Time Associated Diagnosis Comments [...] mm x 41 mm x 40 mm oeii-ac-iwpzkyhfvg Sinotubular junction: 39 mm x 40 mm Ascending aorta: 42 mm x 41 mm Distance to RCA ostium from aortic valve annulus: 24 mm Distance to left main ostium from annulus: 13 mm Deployment angle: 12 STATELESS, 33 Caudal Right coronary sinus height: 25 [...] mm x 41 mm x 40 mm ytoc-ci-sbrimfhjja Sinotubular junction: 39 mm x 40 mm Ascending aorta: 42 mm x 41 mm Distance to RCA ostium from aortic valve annulus: 24 mm Distance to left main ostium from annulus: 13 mm Deployment angle: 12 STATELESS, 33 Caudal Right coronary sinus height: 25 [...] it. Electronically signed by: Daniel Carpio M.D. us María Oliveros MD IMG CT PROCEDURES Final R esult * POC ISTAT (09/26/2024 2:45 PM CDT) Creatinine, POC, bld 1.0 0.6 - 1.3 mg/dL POC Device Number [id number] [facility] POC Performer [id number] [facility] Blood 09/26/2024 2:45 PM CDT 09/26/2024 2:45 PM CDT us María Oliveros MD LAB BLOOD ORDERABLES Page l Result Performing Organization Address [facility]/ZIP Co de Phone Number [facility] [address] [facility] [place] [address] * eGFR (09/26/2024 2:36 PM CDT) eGFR >90 >=60 mL/min/1. 73 m2 Comment: [...] of Race in Diagnosing Kidney Disease, JASN 2020). The CKD-EPI equation should not be used for patients with unstable renal function and has not been validated in children and those over 70. Current interpretive data was last reviewed 2021. Blood 09/26/2024 2:36 PM CDT 09/26/2024 4:36 PM CDT us Marty Norman MD LAB BLOOD ORDERABLES Final Res ult [facility] [address] [facility]. [place] [address] * Differential, auto (09/26/2024 2:36 PM CDT) Neutrophil abs 5.21 1.50 - 6.50 K/cumm Imm gran abs 0.02 0.00 - 0.10 K/cumm [facility] Lymphocyte abs 1.64 0.80 - 3.30 K/cumm [facility] Monocyte abs 0.64 0.20 - 0.80 K/cumm [facility] Eosinophil abs 0.31 0.00 - 0.50 K/cumm [facility] Basophil abs 0.05 0.00 - 0.10 K/cumm [facility] Neutrophil pct 66.3 % [facility] Comment: Interpretive Data Percent cell count reference ranges are not reported, since discordance with absolute values may lead to misinterpretation of CBC data. Current Interpretive Data was last revised on 2017. Imm gran pct 0.3 % [facility] Comment: Interpretive Data Percent cell count reference ranges are not reported, since discordance with absolute values may lead to misinterpretation of CBC data. Current Interpretive Data was last revised on 2017. Lymphocyte pct 20.8 % [facility] Comment: Interpretive Data Percent cell count reference ranges are not reported, since discordance with absolute values may lead to misinterpretation of CBC data. Current Interpretive Data was last revised on 2017. Monocyte pct 8.1 % [facility] Comment: Interpretive Data Percent cell count reference ranges are not reported, since discordance with absolute values may lead to misinterpretation of CBC data. Current Interpretive Data was last revised on 2017. Eosinophil pct 3.9 % [facility] Comment: Interpretive Data Percent cell count reference ranges are not reported, since discordance with absolute values may lead to misinterpretation of CBC data. Current Interpretive Data was last revised on 2017. Basophil pct 0.6 % [facility] Comment: Interpretive Data Percent cell count reference ranges are not reported, since discordance with absolute values may lead to misinterpretation of CBC data. Current Interpretive Data was last revised on 2017. Blood 09/26/2024 2:36 PM CDT 09/26/2024 3:05 PM CDT us Marty Norman MD LAB BLOOD ORDERABLES Final Res ult [facility] [address] [facility]. [place] [address] * Pro B-type natriuretic peptide (09/26/2024 2:36 [...] ORDERABLES Final Res ult Performing Organization Address [facility] Co de Phone Number [facility] HAGAN [address] [facility]. [facility] [place] [address] * (ABNORMAL) CBC with auto differential (09/26/2024 2:36 PM CDT) WBC 7.87 3.80 - 9.90 K/cumm Hgb 17.2 13.0 - 17.5 g/dL [facility] Hct 51.1(H) 38.9 - 50.3 % [facility] Plt 254 150 - 400 K/cumm [facility] MPV 10.0 9.1 - 12.3 fL [facility] RBC 5.61 4.30 - 5.80 M/cumm [facility] MCV 91.1 81.3 - 96.4 fL [facility] MCH 30.7 27.1 - 33.3 pg [facility] MCHC 33.7 32.3 - 35.7 g/dL [facility] RDW CV 12.9 11.1 - 14.9 % [facility] RDW SD 43.2 35.7 - 48.1 fL [facility] NRBC abs 0.00 0.00 - 0.01 K/cumm [facility] Blood 09/26/2024 2:36 PM CDT 09/26/2024 3:05 PM CDT Marty Norman MD LAB BLOOD ORDERABLES Final Res ult Performing Organization Address [facility]/ZIP Co de Phone Number [facility] LEMONCH [address] [facility]. [place] [address] * (ABNORMAL) Lipoprotein a (LPa) (09/26/2024 2:36 PM CDT) Lipoprotein A 481(H) <75 nmol/L [facility] Comment: Lp(a) confers increased risk [...] considered a risk enhancing factor by the [place] [employer]. This test has been modified from the stamping operator's instructions. Its performance characteristics were determined by [facility] in a manner consistent with CLIA requirements. This test has not been cleared or approved by the U.S. Food and Drug Administration. Test Performed by: [place] [address] Manager Sourcing: Arturo Vilchis Ph.D.; CLIA# [id number] Blood 09/26/2024 2:36 PM CDT 09/26/2024 3:05 PM CDT us Marty Norman MD LAB BLOOD ORDERABLES Final Res ult [facility]ERT[facility] [address] [facility]. [place] [address] [facility] * Protime-INR (09/26/2024 2:36 PM [...] ORDERABLES Final Res ult Performing Organization Address [facility] de Phone Number [facility] ROBERTSCH [address] [facility] [place] [address] * CRP (cardiac risk) (09/26/2024 2:36 PM CDT) Pathologist [facility] hsCRP 2.51 mg/L Comment: Interpretive data Adult [...] ORDERABLES Final Res ult Performing Organization Address [facility] Phone Number [facility] ROBERT[facility] [address] [facility] [place] [address] * (ABNORMAL) Hemoglobin A1c (09/26/2024 2:36 PM CDT) Pathologist [facility] Hgb A1C 6.0(H) 4.0 - 5.6 % Estimated Average Glucose 126 mg/dL [facility] Comment: The ADA recommends reporting an estimated Average Glucose (eAG) with all Hemoglobin A1c results using the equation derived from a study of 507 normal and diabetic adults. Minority populations were underrepresented and children were not included. (Diabetes Care 31:7634-0512, 2008). The eAG is not equivalent to a fasting glucose. Blood 09/26/2024 2:36 PM CDT 09/26/2024 3:05 PM CDT us Marty Norman MD LAB BLOOD ORDERABLES Final Res ult [facility] [address] [facility]. [place] [address] * (ABNORMAL) Comprehensive metabolic panel (09/26/2024 2:36 PM CDT) Pathologist [facility] Sodium 142 135 - 145 mmol/L Potassium, pl 3.9 3.3 - 4.9 mmol/L [facility] Chloride 99 97 - 110 mmol/L [facility] CO2 28 22 - 32 mmol/L [facility] Anion gap 16(H) 2 - 15 mmol/L [facility] BUN 18 6 - 25 mg/dL [facility] Creatinine 0.82 0.80 - 1.30 mg/dL [facility] Glucose 86 70 - 199 mg/dL [facility] Comment: Interpretive Data Fasting glucose >/= 126 [...] LAB BLOOD ORDERABLES Final Res ult [facility]ERT[facility] [address] [facility]. Department of [facility] [place] [id number] * ECG 12 lead (09/26/2024 12:44 PM CDT) Marty Norman MD ECG ORDERABLES Edited Result - Final * TRANSTHORACIC ECHO (TTE) COMPLETE W DOPPLER/CF W CONTRAST (09/26/2024 10:44 AM CDT) EF Mod BP 53 % CONS SCIMAGE Anatomical Region Laterality Modality Ultrasound 09/26/2024 9:48 AM CDT Narrative 09/27/2024 2:07 PM CDT [facility] [address] , [address] [place] [address] Transthoracic Echocardiographic Report Patient Name: IKE RAPHAEL M : 1955 (69y 4m) Gender: M Study Date: 09/26/2024 09:48:10 AM Ht(Inch): 70 Wt(Lb): 279.1 BSA: 2.5 Dog Beautician: ROLLY Posada Location: I Order Provider: MARÍA OLIVEROS Heart Rate: 71 [...] RA Volume Index 21.34 ml/m2 PV Peak Harjinder 1.1 m/s [ 0.4 - 0.8 ] [...] Procedure Note Marty Norman MD - 09/27/2024 [facility] [address] , [address] [place] [address] Transthoracic Echocardiographic Report Patient Name: IKE RAPHAEL M : 1955 (69y 4m) Gender: M Study Date: 09/26/2024 09:48:10 AM Ht(Inch): 70 Wt(Lb): 279.1 BSA: 2.5 Dog Beautician: ROLLY Posada Location: [facility] Order Provider:MARÍA OLIVEROS Heart Rate: 71 BMI: [...] LA Length 4C 5.67 cm MV Decel Acxu608.61 msec [ 104.00 - 258.00 ] LA [...] [ 1.00 - 2.00 ] PI ED Nat326.27 m/sec Asc Ao Diam 2D4.38 cm Asc Ao Index1.75 cm/m2 Electronically Signed By: Marty Norman MD 09/27/2024 2:06:24 PM CDT us María Oliveros MD CV ECHO PROCEDURES Final Result * US Outside Reference (09/11/2024 1:49 PM CDT) Impressions [facility] - 09/11/2024 1:49 PM CDT These images are for Reference purposes only and have not been reviewed by [facility] Radiology. There will be no report generated by a [facility] Radiologist. Narrative [facility] - 09/11/2024 1:49 PM CDT EXAMINATION: Images For Reference Purposes Only us Marty Norman MD IMG US PROCEDURES Final Result [facility] from Last 3 Months Additional Health Concerns Active Problems Noted Date Diagnosed Date Autogenerated Problem 10/23/2024 Autogenerated Problem 10/24/2024 Insurance CHOICE PLUS MEDICARE [facility] MEDICARE MEDICARE [facility] Advance Directives For more information, please contact: [phone] * Full Code (Latest Code Status on File) Date Activated Date Inactivated Comments 01/31/2019 9:49 PM 02/01/2019 8:29 PM * Full Code Date Activated Date Inactivated Comments 01/31/2019 5:52 PM 01/31/2019 9:49 PM Care Teams Architectural Examiner Relationship Specialty Start Date End Date Dani Elam MD [address] [place] [address] PCP - General Family Medicine 08/10/24 Miscellaneous, Not In File Molecular Biology Professor 09/06/24
--- OUTSIDE RECORDS SUMMARY | 2024-10-25 09:01 | XMS_ITS | Clinical Summary ---
Author Organization [facility] Address [address] [place] [address] Care Team Providers Care Wood Fence Installer Name Role Phone Dani Elam MD Primary Care Provider [phone] TimurAdriano díaz DO Unavailable [phone] Allergies No known active allergies Medications valsartan (DIOVAN) 160 MG tablet Take 1 tablet (160 mg total) by mouth daily. Active atorvastatin (LIPITOR) 40 MG tablet Take 1 tablet (40 mg total) by mouth nightly at bedtime. 01/04/2023 Active hydroCHLOROthia zide (HYDRODIURIL) 25 MG tablet Take 1 tablet (25 mg total) by mouth daily. 01/31/2023 Active Cholecalciferol 10 MCG (400 UNIT) Cap Take 1,200 Units by mouth daily. Active MULTIPLE VITAMINS-MINERA LS OR Take 1 tablet by mouth daily. Active Multiple Vitamins-Minera ls (PRESERVISION AREDS 2) Cap 01/20/2022 Active Active Problems Problem Noted Date Diagnosed Date Morbid (severe) obesity due to excess calories 0 05/08/2024 Body mass index (BMI) 45.0-49.9, adult Primary hypertension 03/14/2024 Mixed hyperlipidemia 03/14/2024 Nonrheumatic aortic (valve) stenosis 03/02/2022 Assessment & Plan (02/15/2023 10:18 AM MACHINE WHITENER): Patient remains relatively asymptomatic with his aortic stenosis. The dyspnea is relatively unchanged and had prior normal proBNP. We will repeat his proBNP and if this remains normal I see no need for alteration to his current treatment plan. Assessment & Plan (03/02/2022 9:13 AM MACHINE WHITENER): With a mean gradient of 28 mmHg the patient has moderate to severe aortic stenosis but remains asymptomatic. I plan to obtain proBNP value to assess his filling pressures noninvasively but if this remains less than 400 we will continue with conservative management and reassess his gradients in 1 year. Bicuspid aortic valve (HHS/HCC) 03/02/2022 Assessment & Plan (02/15/2023 10:18 AM MACHINE WHITENER): Patient's ascending aortic dimensions remain stable, his aortic root was 4.4 cm. He will continue with tight blood pressure control. Assessment & Plan (03/02/2022 9:14 AM MACHINE WHITENER): There was no mention of ascending aortic enlargement associated with the suspicion of bicuspid aortic valve. We will reassess and comment on this with his next echocardiogram. Abnormal glucose 03/02/2022 Assessment & Plan (03/02/2022 8:48 AM MACHINE WHITENER): Patient reports historical abnormal blood sugars but has not required therapy. With his metabolic syndrome it would be reasonable to remain aggressive with his LDL cholesterol targeting a value of 70 mg/dL or less. We will obtain his most recent lipid profile and address this accordingly. Immunizations Immunization Administration Dates Next Due Fluzone High Dose - >Age 65 (Prefilled Syringe) 02/02/2023,01/24/2022,01/26/2021 Influenza Adult (Generic) 01/24/2020,02/01/2019 PFIZER COVID-19 (ORIGINAL FO RMULATION, PURPLE CAP) mRNA, LNP-S, PF, 30 MCG/0.3 ML DOSE 06/26/2020,06/06/2020 Pneumococcal (Pneumovax 23) 02/02/2023 Shingrix 03/13/2023,02/02/2023 Family History Medical History Relation Comments Heart Disease Father skin cancer Hypertension Father Hypertension Mother Heart Disease Paternal Grandmother Relation Status Comments Father Mother Paternal Grandmother Social History Tobacco Use Types Packs/Day Years Used Date Smoking Tobacco: Never Tobacco Cessation:Counseling Given: Not Answered Alcohol Use Standard Drinks/Week Comments Never 0 (1 standard drink = 0.6 oz pur e alcohol) Sex and Gender Information Value Date Recorded Sex Assigned at Not on file Legal Sex Male 5:53 PM MACHINE WHITENER Gender Identity Not on file Sexual Orientation Not on file Last Filed Vital Signs Vital Sign Reading Time Taken Comments Blood Pressure 130/80 05/08/2024 9:27 AM MACHINE WHITENER Pulse 76 05/08/2024 9:27 AM MACHINE WHITENER Temperature - - Respiratory Rate 19 05/08/2024 9:27 AM MACHINE WHITENER Oxygen Saturation 95% 05/08/2024 9:27 AM MACHINE WHITENER Inhaled Oxygen Concentration - - Weight 141.7 kg (312 lb 6.4 oz) 05/08/2024 9:27 AM MACHINE WHITENER Height 175.3 cm (5' 9) 05/08/2024 9:27 AM MACHINE WHITENER Body Mass Index 46.13 05/08/2024 9:27 AM MACHINE WHITENER Plan of Treatment Upcoming Encounters Date Type Department Care Team (Late st Contact Info) Description 11/09/2024 1:00 PM CDT Office Visit [facility] [place] [phone] Elena Lara, IMMIGRATION SPECIALIST [address] [address] Health Maintenance Due Date Last Done Comments Colorectal Cancer Screening Colonoscopy (10 Years) 1955 Hepatitis C 1972 DTaP, Tdap and Td Vaccines (1 - Tdap) 1973 RSV Immunization or 60+ Years (1 - Risk 60-74 years 1-dose series) 2014 AAA SCREENING 2019 Annual Medicare Wellness Visit 2019 COVID-19 Vaccine ( season) 2023 03/13/2023, 01/24/2022, 01/26/2021, Additional history exists Pneumococcal Vaccine: 50+ Years (2 of 2 - PCV) 02/03/2024 02/02/2023 Zoster Vaccines Completed 03/13/2023, 02/02/2023 Meningococcal B Vaccine Aged Out No l onger eligible based on patient's age to complete this topic Meningococcal Vaccine Aged Out No clemencia araceli eligible based on patient's age to complete this topic RSV Immunizations Under 20 Months Aged Out No longer eligible based on patient's age to complete this topic Insurance MEDICARE [facility] [place] [id number] A[employer] Care Teams Wood Fence Installer Relationship Specialty Start Date End Date Dani Elam MD [address] [place] [phone] PCP - General FAMILY PRACTICE 08/16/18 Adriano Suero DO [address] [place] [phone] [place] Help Desk Consultant CARDIOVASCULAR DISEASE 02/18/22
--- OUTSIDE RECORDS SUMMARY | 2024-10-25 09:01 | XMS_ITS | Encounter Summary ---
Author Organization [facility] Address [address] [place] [address] Phone Care Team Providers Care Stage Manager Name Role Phone Dani Elam MD Primary Care Provider [phone] Miscellaneous, Not In File Unavailable Unava ilable Encounter Details Date Type Department Care Team (Late st Contact Info) Description 09/26/2024 Results Follow-Up [facility] Cardiology [address] [facility] Medical Office Building [address] [place] [address] Marty Norman MD [address] [facility] [address] [place] [address] ECG 12 lead Social History Tobacco Use Types Packs/Day Years [...] on file 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 Gender Identity Not on file Sexual Orientation Not on file documented as of this encounter Plan of Treatment Upcoming Encounters Date Type Department Care Team (Latest Contact Info) Description 11/15/2024 10:05 AM CDT Hospital Encounter [facility] [address] [place] [id number] Rolando Reddy MD [address] [place] [address] Nonrheumatic aortic valve stenosis 11/15/2024 10:05 AM CDT - 11/15/2024 11:20 AM CDT Surgery [facility] 1 [place] [address] Rolando Reddy MD [address] [place] [address] LEFT HEART CATHETERIZATION WITH CORONARY ANGIOGRAPHY AND WITH OR WITHOUT LEFT VENTRICULOGRAM [id number] 12/01/2024 7:00 AM CDT Hospital Encounter [facility] Operating Room 1 [place] [address] Daniel Pedraza MD [address] [facility] [place] [address] [place] [address] 12/01/2024 7:00 AM CDT - 12/01/2024 2:10 PM CDT Surgery [facility] Operating Room 1 [place] [address] Daniel Pedraza MD [address] [facility] [place]8233-08-[address] [place] [address] REPLACEMENT AORTIC VALVE/ROOT-AVR WITH POSS ANNULAR ENLARGEMENT Scheduled Procedures Name Priority Associated Diagnoses Date/Ti me REPLACEMENT AORTIC VALVE/ROOT Nonrheumatic aortic valve stenosis 12/01/2024 7:00 AM CDT REPAIR ANEURYSM ASCENDING AORTIC - HYBRID ROOM Nonrheumatic aortic valve stenosis 12/01/2024 7:00 AM CDT documented as of this encounter Visit Diagnoses Not on filedocumented in this encounter Care Teams Stage Manager Relationship Specialty [place] [address] [place] [address] [place] [address] PCP - General Family Medicine 08/10/24 Miscellaneous, Not In File Soliciting Freight Agent 09/06/24 documented as of this encounter
--- OUTSIDE RECORDS SUMMARY | 2024-10-25 09:01 | XMS_ITS | Encounter Summary ---
Author Organization [facility] Address [address] [place] [address] Phone Care Team Providers Care Aluminum Sheet Cutter Name Role Phone No, Physician Primary Care Provider [phone] Dani Elam MD Primary Care Provider [phone] Miscellaneous, Not In File Unavailable Unava ilable Encounter Details Date Type Department Care Team (Latest Contact Info) Description 04/07/2024 Orders Only [facility] Scanning, Provider Social History Tobacco Use Types Packs/Day Years [...] on file 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 Gender Identity Not on file Sexual Orientation Not on file documented as of this encounter Plan of Treatment Upcoming Encounters Date Type Department Care Team (Latest Contact Info) Description 11/15/2024 10:05 AM CDT Hospital Encounter [facility] 1 [place] [address] Rolando Reddy MD [address] [place] [address] Nonrheumatic aortic valve stenosis 11/15/2024 10:05 AM CDT - 11/15/2024 11:20 AM CDT Surgery [facility] 1 [place] [address] Rolando Reddy MD [address] [place] [address] LEFT HEART CATHETERIZATION WITH CORONARY ANGIOGRAPHY AND WITH OR WITHOUT LEFT VENTRICULOGRAM [id number] 12/01/2024 7:00 AM CDT Hospital Encounter [facility] Operating Room 1 [place] [address] Daniel Pedraza MD [address] [facility] [place] [address] [place] [address] 12/01/2024 7:00 AM CDT - 12/01/2024 2:10 PM CDT Surgery [facility] Operating Room 1 [place] [address] Daniel Pedraza MD [address] [facility] [place] [place] [address] REPLACEMENT AORTIC VALVE/ROOT-AVR WITH POSS ANNULAR ENLARGEMENT Scheduled Procedures Name Priority Associated Diagnoses Date/Ti me REPLACEMENT AORTIC VALVE/ROOT Nonrheumatic aortic valve stenosis 12/01/2024 7:00 AM CDT REPAIR ANEURYSM ASCENDING AORTIC - HYBRID ROOM Nonrheumatic aortic valve stenosis 12/01/2024 7:00 AM CDT documented as of this encounter Procedures Procedure Name Priority Date/Time Associated Diagnosis Comments CARDIOLOGY DOCUMENT SCAN 04/07/2024 documented in this encounter Results * Cardiology Document Scan (04/07/2024) Anatomical Region Laterality Modality Other us Provider Scanning CV CARDIAC SERVICES PROCEDURES Final Result documented in this encounter Visit Diagnoses Not on filedocumented in this encounter Care Teams Aluminum Sheet Cutter Relationship Specialty Start Date End Date No, Physician PCP - General 01/31/19 08/09/24 [place] [address] [place] [address] [place] [address] PCP - General Family Medicine 08/10/24 Miscellaneous, Not In File Property Specialist 09/06/24 documented as of this encounter
--- OUTSIDE RECORDS SUMMARY | 2024-10-25 09:01 | XMS_ITS | Encounter Summary ---
Author Organization [facility] Address [address] [place] [address] Phone Care Team Providers Care Construction Administrative Assistant Name Role Phone Dani Elam MD Primary Care Provider [phone] Miscellaneous, Not In File Unavailable Unava ilable Encounter Details Date Type Department Care Team (Late st Contact Info) Description 10/24/2024 Orders Only [facility] Cardiothoracic Surgery [address] 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 Aureus Nasal Colonization Apply to each nostril 2 (two) times a day for 5 days Apply topically 2 (two) times a day Apply to both nostrils twice daily for 5 days prior to surgery 22 g 11/26/2024 5 chlorhexidine (PERIDEX) 0.12 % oral rinseIndications:M outh Infection Prevention Apply 15 mL to the mouth or throat 3 (three) times a day for 5 days 225 mL 11/26/2024 5 documented in this encounter Plan of Treatment Upcoming Encounters Date Type Department Care Team (Latest Contact Info) Description 11/15/2024 10:05 AM CDT Hospital Encounter [facility] V[facility] Center 1 [place] [address] Rolando Reddy MD [address] [address] Nonrheumatic aortic valve stenosis 11/15/2024 10:05 AM CDT - 11/15/2024 11:20 AM CDT Surgery [facility] 1 [place] [address] Rolando Reddy MD [address] [address] LEFT HEART CATHETERIZATION WITH CORONARY ANGIOGRAPHY AND WITH OR WITHOUT LEFT VENTRICULOGRAM [id number] 12/01/2024 7:00 AM CDT Hospital Encounter [facility] Operating Room 1 [place] [address] Daniel Pedraza MD [address] [facility] [place] [address] [place] [address] 12/01/2024 7:00 AM CDT - 12/01/2024 2:10 PM CDT Surgery [facility] Operating Room 1 [place] [address] Daniel Pedraza MD [address] [facility] [address] [place] [address] REPLACEMENT AORTIC VALVE/ROOT-AVR WITH POSS ANNULAR ENLARGEMENT Scheduled Procedures Name Priority Associated Diagnoses Date/Ti me REPLACEMENT AORTIC VALVE/ROOT Nonrheumatic aortic valve stenosis 12/01/2024 7:00 AM CDT REPAIR ANEURYSM ASCENDING AORTIC - HYBRID ROOM Nonrheumatic aortic valve stenosis 12/01/2024 7:00 AM CDT documented as of this encounter Goals Goal Patient Goal Type Associated Problems Recent Progress Patient-Stated? Author Autogenerat ed Goal Care Plan Autogenerated Problem No Ely Rosa Autogenerat ed Goal Care Plan Autogenerated Problem No Brandy Queen RN documented as of this encounter Visit Diagnoses Not on filedocumented in this encounter Additional Health Concerns Active Problems Noted Date Diagnosed Date Autogenerated Problem 10/23/2024 Autogenerated Problem 10/24/2024 documented as of this encounter Care Teams Construction Administrative Assistant Relationship Specialty Start Date End Date Dani Elam MD [address] [facility] [place] [address] PCP - General Family Medicine 08/10/24 Miscellaneous, Not In File Manifest/Order Organizer Print Orders 09/06/24 documented as of this encounter
--- OUTSIDE RECORDS SUMMARY | 2024-10-25 09:01 | XMS_ITS | Encounter Summary ---
Author Organization [facility] Address [address] [place] [address] Care Team Providers Care Hydrometer Finisher Name Role Phone Dani Elam MD Primary Care Provider Adriano Suero DO Unavailable [phone] Encounter Details Date Type Department Care Team (Late Contact Info) Description 03/25/2022 Abstract [facility] [address] [place] [address] Codie Paris MA Social History Tobacco Use Types Packs/Day Years Used Date Smoking Tobacco: Never Alcohol Use Standard Drinks/Week Comments Never 0 (1 standard drink = 0.6 oz pur e alcohol) Sex and Gender Information Value Date Recorded Sex Assigned at Not on file Legal Sex Male 5:53 PM FIELD CARE MANAGER Gender Identity Not on file Sexual Orientation Not on file COVID-19 Exposure Response Date Recorded In the last 10 days, have yo u been in contact with someone who was confirmed or suspected to have Coronavirus/COVID-19? No / Unsure 03/02/2022 8:15 AM FIELD CARE MANAGER documented as of this encounter Plan of Treatment Upcoming Encounters Date Type Department Care Team (Late Contact Info) Description 11/09/2024 1:00 PM CDT Office Visit [facility] [place] [address] Elena Lraa, SAND CONDITIONER [facility] [address] [place] [address] documented as of this encounter Procedures Procedure Name Priority Date/Time Associated Diagnosis Comments LIPID PANEL Routine 04/01/2022 NT-PRO BNP [place]IST[place] Routine 03/24/2022 documented in this encounter Results * LIPID PANEL (04/01/2022) CHOLESTEROL 161 HDL 54 TRIGLYCERIDES 87 LDL (CALCULATED) 75 04/01/2022 us Default History Genericprovider LABORATORY Final Result * Nt-Pro Bnp [place] (03/24/2022) PRO-BRAIN NATRIURETIC PEPTIDE 93 03/24/2022 us Default History Genericprovider GENERAL SUPPLY & EQUIPMENT ORDERABLES Final Result documented in this encounter Visit Diagnoses Not on filedocumented in this encounter Care Teams Hydrometer Finisher Relationship Specialty Start Date End Date Dani Elam MD [address] [place] [address] PCP - General FAMILY PRACTICE 08/16/18 Adriano Suero DO [address] [place] [address] [place] Board Lining Machine Operator CARDIOVASCULAR DISEASE 02/18/22 documented as of this encounter
--- OUTSIDE RECORDS SUMMARY | 2024-10-25 09:01 | XMS_ITS | Clinical Summary ---
Author Organization [facility] Address [address] [address] Phone Care Team Providers Care Palletizer Operator Name Role Phone Dani Elam MD Primary Care Provider [phone] Dana Urrutia APRN, NET WPF DEVELOPER Unavailable Allergies No known active allergies Medications SULFASALAZINE PO Take 2,000 mg by mouth every morning. Active Olmesartan Medoxomil (BENICAR) 40 MG Tablet Take 40 mg by mouth daily. Active simvastatin (ZOCOR) 40 MG Tablet Take 40 mg by mouth every evening. Active folic acid (FOLVITE) 1 MG Tablet Take 1 mg by mouth every morning. Active Cholecalciferol (VITAMIN D PO) Take 1,200 Units by mouth daily. Active Multiple Vitamins-Mineral s (MULTIVITAMIN PO) Take 1 Tab by mouth every morning. Active Chlorphen-Pseudo ephed-APAP (TYLENOL ALLERGY SINUS PO) Take 1 Tab by mouth. Every 3 to 4 days as needed. Active Active Problems No known active problems Resolved Problems Problem Noted Date Diagnosed Date Resolved Date Ulcerative colitis with complication 04/10/2016 04/10/2016 Family History Medical History Relation Name Comments Crohn's Disease Father Heart Disease Father Melanoma Other Son skin cancer Relation Name Status Comments Father Mother Alive Other Son Alive Social History Tobacco Use Types Packs/Day Years Used Date Smoking Tobacco: Never Smokeless Tobacco: Never Tobacco Cessation:Counseling Given: No Alcohol Use Standard Drinks/Week Comments Yes 0 (1 standard drink = 0.6 oz pure alcohol) rarely- a few beers a couple times a year Sex and Gender Information Value Date Recorded Sex Assigned at Not on file Legal Sex Male 10:37 PM CDT Gender Identity Not on file Sexual Orientation Not on file 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 Not on file Not on file Not on file Last Filed Vital Signs Vital Sign Reading Time Taken Comments Blood Pressure 139/73 03/14/2018 8:35 AM HOSPITAL INSURANCE CLERK Pulse 79 03/14/2018 8:35 AM HOSPITAL INSURANCE CLERK Temperature 36 C (96.8 F) 03/14/2018 8:35 AM HOSPITAL INSURANCE CLERK Respiratory Rate 13 03/14/2018 8:35 AM HOSPITAL INSURANCE CLERK Oxygen Saturation 98% 03/14/2018 8:35 AM HOSPITAL INSURANCE CLERK Inhaled Oxygen Concentration - - Weight 129.3 kg (285 lb) 04/02/2020 1:00 PM HOSPITAL INSURANCE CLERK Height 180.3 cm (5' 11) 04/02/2020 1:00 PM HOSPITAL INSURANCE CLERK Body Mass Index 39.75 04/02/2020 1:00 PM HOSPITAL INSURANCE CLERK Plan of Treatment Health Maintenance Due Date Last Done Comments Hepatitis C Virus (HCV) Screening 1955 TdaP Immunization 1955 Cologuard 1999 Immunochemical Fecal Occult Blood 1999 Pneumococcal Immunization (5 0+ years) (1 of 1 - PCV) 2004 Zoster Immunization (1 of 2) 2004 Colonoscopy 03/14/2020 03/14/2018, 03/04/2016 Colorectal Cancer Screening 03/14/2020 SARS-COV-2 Immunization ( season) 2023 01/26/2021, 06/26/2020, 06/06/2020 Influenza Immunization (#1) 2024 02/01/2019 Respiratory Syncytial Virus (RSV) Immunization (Adult) (1 - 1-dose 75+ series) 2029 Hepatitis B Immunization Aged Out No longer eligible based on patient's age to complete this topic Human Papillomavirus (HPV) Immunization Aged Out No longer eligible b ased on patient's age to complete this topic Meningococcal Immunization (ACWY) Aged Out No longer eligible b ased on patient's age to complete this topic Rotavirus Immunization Aged Out No lo nger eligible based on patient's age to complete this topic Insurance MEDICARE [facility] Care Teams Palletizer Operator Relationship Specialty Start Date End Date Dani Elam MD [address] [place] [address] PCP - General Family Medicine 02/28/16 Dana Urrutia, INTERLACER, NET [place] [address] Nurse Practitioner Advanced Practice Nurse 04/10/16
--- OUTSIDE RECORDS SUMMARY | 2024-10-25 09:01 | XMS_ITS | Encounter Summary ---
Author Organization [facility] Address [address] [place] [address] Phone Care Team Providers Care Rod Straightener Name Role Phone Dani Elam MD Primary Care Provider [phone] Miscellaneous, Not In File Unavailable Unava ilable Encounter Details Date Type Department Care Team (Late st Contact Info) Description 10/20/2024 Telephone [facility] Cardiology [address] [facility] Advanced Medicine 8th [place] [address] [place] [address] Marty Norman MD [address] [place] [address] Social History Tobacco Use Types Packs/Day Years [...] on file 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 He can be reached at [phone]. documented in this encounter Plan of Treatment Upcoming Encounters Date Type Department Care Team (Latest Contact Info) Description 11/15/2024 10:05 AM CDT Hospital Encounter [facility] Center 1 [place] [address] Rolando Reddy MD [address] [facility] [address] [place] [address] Nonrheumatic aortic valve stenosis 11/15/2024 10:05 AM CDT - 11/15/2024 11:20 AM CDT Surgery [facility] Heart [facility] [place] 1 [place] [address] Rolando Reddy MD [address] [facility] [address] [place] [address] LEFT HEART CATHETERIZATION WITH CORONARY ANGIOGRAPHY AND WITH OR WITHOUT LEFT VENTRICULOGRAM [id number] 12/01/2024 7:00 AM CDT Hospital Encounter [facility] Operating Room 1 [place] [address] Daniel Pedraza MD [address] [facility] [place] 8[address] [place] [address] 12/01/2024 7:00 AM CDT - 12/01/2024 2:10 PM CDT Surgery [facility] Operating Room 1 [place] [address] Daniel Pedraza MD [address] [facility] [place] [facility] 8[address] [place] [address] REPLACEMENT AORTIC VALVE/ROOT-AVR WITH POSS ANNULAR ENLARGEMENT Scheduled Procedures Name Priority Associated Diagnoses Date/Ti me REPLACEMENT AORTIC VALVE/ROOT Nonrheumatic aortic valve stenosis 12/01/2024 7:00 AM CDT REPAIR ANEURYSM ASCENDING AORTIC - HYBRID ROOM Nonrheumatic aortic valve stenosis 12/01/2024 7:00 AM CDT documented as of this encounter Visit Diagnoses Not on filedocumented in this encounter Care Teams Rod Straightener Relationship Specialty Start Date End Date aDni Elam MD [address] [place] [address] PCP - General Family Medicine 08/10/24 Miscellaneous, Not In File Supervisor Records Change 09/06/24 documented as of this encounter
[2024-10-25 18:23] LABS: Hematocrit 47.4 % (42.0-52.0); Hemoglobin 15.4 g/dL (14.0-18.0); Mean Corpuscular HGB Conc 32.5 g/dl (32-36); Mean Corpuscular Hemoglobin 30.3 pg (26-34); Mean Corpuscular Volume 93.3 fl (80-100); Platelet Count Result 249 k/mm3 (150-375); Red Blood Count 5.08 M/mm3 (4.6-6.20); White Blood Count 7.2 K/mm3 (4.5-10.0)
[2024-10-25 18:56] LABS: Alanine Aminotransferase 26 U/L (6-50); Albumin Level 4.2 g/dL (3.5-5.1); Alkaline Phosphatase 65 U/L (38-126); Anion Gap 7 mmol/L (4-12); Aspartate Amino Transferase 59 U/L (17-59); Bilirubin,Total 0.6 mg/dL (0.2-1.3); Blood Urea Nitrogen 21 mg/dL (9-20); CRP < 0.5 mg/dL (<1.0); Calcium 9.7 mg/dL (8.4-10.2); Carbon Dioxide 32 mmol/L (22-30); Chloride 100 mmol/L (98-107); Estimated Glomerular Filt Rate > 60; Glucose 88 mg/dL (65-110); Potassium 4.0 mmol/L (3.4-5.0); Sodium 139 mmol/L (137-145); Total Protein 7.0 g/dL (6.3-8.2)
== END 2024-10-25 08:52 | disposition home or self-care (01) ==
LOC: ANHGOSHLAB 08:53
PROVIDERS: PCP Family Medicine; Visit Provider Nurse Practitioner
DX: K51.90 Ulcerative colitis, unspecified, without complications (principal); Z86.0100 Personal history of colon polyps, unspecified
CPT/HCPCS: 36415; 80053; 85027; 85652; 86140

== ENCOUNTER 2025-02-16 14:17 | Outpatient (NON) | payer MEDICARE, SELFPAY ==
--- OUTSIDE RECORDS SUMMARY | 2025-02-14 06:27 | XMS_ITS | Encounter Summary ---
Author Organization [facility] Address [facility] [place] [address] Care Team Providers Care Biotech Production Specialist Name Role Phone Dani Elam MD Primary Care Provider [phone] Greypatrick Adriano Mahoney DO Unavailable [phone] Reason for Visit * Consultation/Treatment (Routine) - New Request Specialty Diagnoses / Procedures Referred By Contact Referred To Contact Cardiac Rehabilitation / [facility] Cardiopulmonary Rehab Diagnoses Presence of prosthetic heart valve Z95.3 AVR ICR Procedures PHASE II CARDIAC REHAB Dani Elam MD [address] [place] [address] Phone: tel: fax: [facility] [address] [place] [address] Phone: tel: fax: Referral ID Status Reason Start Date Expiration Date Visits Requested Visits Authorized [id number] New Request Cardiac Rehabilitation 02/02/20 25 72 72 Encounter Details Date Type Department Care Team (Late st Contact Info) Description 02/14/2025 6:27 AM ADULT FAMILY HOME PROGRAM MANAGER - 02/14/2025 11:59 PM ADULT FAMILY HOME PROGRAM MANAGER Hospital Encounter [facility] Formerly [facility] [place] [place] [address] Dani Elam MD [address] [place] [address] Discharge Disposition: Home or Self Care (Routine Discharge) Social History Tobacco Use Types Packs/Day Years Used Date Smoking Tobacco: Never Alcohol Use Standard Drinks/Week Comments Never 0 (1 standard drink = 0.6 oz pur e alcohol) Sex and Gender Information Value Date Recorded Sex Assigned at Male 02/02/2025 6:24 AM CDT Legal Sex Male 5:53 PM ADULT FAMILY HOME PROGRAM MANAGER Gender Identity Not on file Sexual Orientation Not on file documented as of this encounter Medications at Time of Discharge atorvastatin (LIPITOR) 40 MG tablet Take 1 tablet (40 mg total) by mouth nightly at bedtime. 01/04/2023 Cholecalciferol 10 MCG (400 UNIT) Cap Take 1,200 Units by mouth daily. hydroCHLOROthiazi de (HYDRODIURIL) 25 MG tablet Take 1 tablet (25 mg total) by mouth daily. 01/31/2023 Multiple Vitamins-Minerals (PRESERVISION AREDS 2) Cap 01/20/2022 MULTIPLE VITAMINS-MINERALS OR Take 1 tablet by mouth daily. valsartan (DIOVAN) 160 MG tablet Take 1 tablet (160 mg total) by mouth daily. documented as of this encounter Plan of Treatment Upcoming Encounters Date Type Department Care Team (Late st Contact Info) Description 02/19/2025 6:30 AM ADULT FAMILY HOME PROGRAM MANAGER Appointment [facility] [place] [address] Dani Elam MD [address] [place] [address] 02/21/2025 6:30 AM ADULT FAMILY HOME PROGRAM MANAGER Appointment [facility] [place] [address] Dani Elam MD [address] [place] [address] 02/23/2025 6:30 AM ADULT FAMILY HOME PROGRAM MANAGER Appointment [facility] [place] [address] Dani Elam MD [address] [place] [address] 02/26/2025 6:30 AM ADULT FAMILY HOME PROGRAM MANAGER Appointment [facility] [place] [address] Dani Elam MD [address] [place] [address] 02/28/2025 6:30 AM ADULT FAMILY HOME PROGRAM MANAGER Appointment [facility] [place] [address] Dani Elam MD [address] [place] [address] 03/02/2025 6:30 AM ADULT FAMILY HOME PROGRAM MANAGER Appointment [facility] [place] [address] Dani Elam MD [address] [place] [address] 03/05/2025 6:30 AM ADULT FAMILY HOME PROGRAM MANAGER Appointment [facility] [place] [address] Dani Elam MD [facility] [place] [address] 03/07/2025 6:30 AM ADULT FAMILY HOME PROGRAM MANAGER Appointment [facility] [place] [address] Dani Elam MD [address] [place] [address] 03/09/2025 6:30 AM ADULT FAMILY HOME PROGRAM MANAGER Appointment [facility] [place] [address] Dani Elam MD [address] [place] [address] 03/12/2025 6:30 AM ADULT FAMILY HOME PROGRAM MANAGER Appointment [facility] [address] [place] [address] Dani Elam MD [address] [place] [address] 03/14/2025 6:30 AM ADULT FAMILY HOME PROGRAM MANAGER Appointment [facility] [place] [address] Dani Elam MD [address] [place] [address] 03/16/2025 6:30 AM ADULT FAMILY HOME PROGRAM MANAGER Appointment [facility] [place] [address] Dani Elam MD [facility] [place] [address] 03/19/2025 6:30 AM ADULT FAMILY HOME PROGRAM MANAGER Appointment [facility] [place] [address] Dani Elam MD [facility] [place] [address] 03/21/2025 6:30 AM ADULT FAMILY HOME PROGRAM MANAGER Appointment [facility] [place] [address] Dani Elam MD [facility] [place] [address] 03/23/2025 6:30 AM ADULT FAMILY HOME PROGRAM MANAGER Appointment [facility] [place] [address] Dani Elam MD [facility] [place] [address] 03/26/2025 6:30 AM ADULT FAMILY HOME PROGRAM MANAGER Appointment [facility] [place] [address] Dani Elam MD [address] [place] [address] 03/28/2025 6:30 AM ADULT FAMILY HOME PROGRAM MANAGER Appointment [facility] [place] [address] Dani Elam MD [facility] [place] [address] 03/30/2025 6:30 AM ADULT FAMILY HOME PROGRAM MANAGER Appointment [facility] [place] [address] Dani Elam MD [facility] [address] [place] [address] 04/02/2025 6:30 AM ADULT FAMILY HOME PROGRAM MANAGER Appointment [facility] [place] [address] Dani Elam MD [facility] [address] [place] [address] 04/04/2025 6:30 AM ADULT FAMILY HOME PROGRAM MANAGER Appointment [facility] [place] [address] Dani Elam MD [facility] [address] [place] [address] 04/06/2025 6:30 AM ADULT FAMILY HOME PROGRAM MANAGER Appointment [facility] [place] [address] Dani Elam MD [facility] [place] [address] 04/09/2025 6:30 AM ADULT FAMILY HOME PROGRAM MANAGER Appointment [facility] [place] [address] Dani Elam MD [facility] [place] [address] 04/11/2025 6:30 AM ADULT FAMILY HOME PROGRAM MANAGER Appointment [facility] [place] [address] Dani Elam MD [address] [place] [address] 04/13/2025 6:30 AM ADULT FAMILY HOME PROGRAM MANAGER Appointment [facility] [place] [address] Dani Elam MD [address] [place] [address] 04/16/2025 6:30 AM ADULT FAMILY HOME PROGRAM MANAGER Appointment [facility] [place] [address] Dani Elam MD [address] [place] [address] 04/18/2025 6:30 AM ADULT FAMILY HOME PROGRAM MANAGER Appointment [facility] [place] [address] Dani Elam MD [address] [place] [address] 04/20/2025 6:30 AM ADULT FAMILY HOME PROGRAM MANAGER Appointment [facility] [place] [place] [address] Dani Elam MD [address] [place] [address] 04/23/2025 6:30 AM ADULT FAMILY HOME PROGRAM MANAGER Appointment [facility] [place] [place] [address] Dani Elam MD [address] [place] [address] 04/25/2025 6:30 AM ADULT FAMILY HOME PROGRAM MANAGER Appointment [facility] [address] [place] [address] Dani Elam MD [address] [place] [address] 04/27/2025 6:30 AM ADULT FAMILY HOME PROGRAM MANAGER Appointment [facility] [place] [address] Dani Elam MD [address] [place] [address] 04/30/2025 6:30 AM ADULT FAMILY HOME PROGRAM MANAGER Appointment [facility] [place] [address] Dani Elam MD [address] [place] [address] 05/02/2025 6:30 AM ADULT FAMILY HOME PROGRAM MANAGER Appointment [facility] [place] [address] Dani Elam MD [address] [place] [address] 05/04/2025 6:30 AM ADULT FAMILY HOME PROGRAM MANAGER Appointment [facility] [place] [address] Dani Elam MD [address] [place] [address] 05/07/2025 6:30 AM ADULT FAMILY HOME PROGRAM MANAGER Appointment [facility] [place] [address] Dani Elam MD [address] [place] [address] 05/09/2025 6:30 AM ADULT FAMILY HOME PROGRAM MANAGER Appointment [facility] [place] [address] Dani Elam MD [address] [place] [address] 05/11/2025 6:30 AM ADULT FAMILY HOME PROGRAM MANAGER Appointment [facility] [address] [place] [address] Dani Elam MD [facility] [place] [address] 05/14/2025 6:30 AM ADULT FAMILY HOME PROGRAM MANAGER Appointment [facility] [place] [address] Dani Elam MD [facility] [place] [address] 05/16/2025 6:30 AM ADULT FAMILY HOME PROGRAM MANAGER Appointment [facility] [place] [address] Dani Elam MD [facility] [place] [address] 05/18/2025 6:30 AM ADULT FAMILY HOME PROGRAM MANAGER Appointment [facility] [place] [address] Dani Elam MD [facility] [place] [address] documented as of this encounter Visit Diagnoses Not on filedocumented in this encounter Care Teams Biotech Production Specialist Relationship Specialty Start Date End Date Dani [place] [address] PCP - General FAMILY PRACTICE 08/16/18 [place] [address] Daniella Scaffold Setter CARDIOVASCULAR DISEASE 02/18/22 documented as of this encounter
--- OUTSIDE RECORDS SUMMARY | 2025-02-16 06:21 | XMS_ITS | Encounter Summary ---
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 AVR ICR Procedures PHASE II CARDIAC REHAB Dani Elam MD [address] [place] [address] Phone: tel: fax: [facility] [address] [address] Phone: tel: fax: Referral ID Status Reason Start Date Expiration Date Visits Requested Visits Authorized [id number] New Request Cardiac Rehabilitation 02/02/20 25 72 72 Encounter Details Date Type Department Care Team (Late st Contact Info) Description 02/16/2025 6:21 AM [facility] Hospital Encounter [facility] [place] [address] Dani Elam MD [address] [place] [phone] Arrived Social History Tobacco Use Types Packs/Day Years Used Date Smoking Tobacco: Never Alcohol Use Standard Drinks/Week Comments Never 0 (1 standard drink = 0.6 oz pur e alcohol) Sex and Gender Information Value Date Recorded Sex Assigned at Male 02/02/2025 6:24 AM CDT Legal Sex Male 5:53 PM CUFF TURNER MACHINE OPERATOR Gender Identity Not on file Sexual Orientation Not on file documented as of this encounter Plan of Treatment Upcoming Encounters Date Type Department Care Team (Late st Contact Info) Description 02/19/2025 6:30 AM CUFF TURNER MACHINE OPERATOR Appointment [facility] [place] [address] Dani Elam MD [address] [place] [address] 02/21/2025 6:30 AM CUFF TURNER MACHINE OPERATOR Appointment [facility] [place] [address] Dani Elam MD [address] [place] [address] 02/23/2025 6:30 AM CUFF TURNER MACHINE OPERATOR Appointment [facility] [place] [address] Dani Elam MD [address] [place] [address] 02/26/2025 6:30 AM CUFF TURNER MACHINE OPERATOR Appointment [facility] [place] [address] Dani Elam MD [address] [place] [address] 02/28/2025 6:30 AM CUFF TURNER MACHINE OPERATOR Appointment [facility] [place] [address] Dani Elam MD [facility] [place] [address] 03/02/2025 6:30 AM CUFF TURNER MACHINE OPERATOR Appointment [facility] [place] [address] Dani Elam MD [address] [place] [address] 03/05/2025 6:30 AM CUFF TURNER MACHINE OPERATOR Appointment [facility] [place] [address] Dani Elam MD [address] [place] [address] 03/07/2025 6:30 AM CUFF TURNER MACHINE OPERATOR Appointment [facility] [place] [address] Dani Elam MD [address] [place] [address] 03/09/2025 6:30 AM CUFF TURNER MACHINE OPERATOR Appointment [facility] [place] [address] Dani Elam MD [facility] [place] [address] 03/12/2025 6:30 AM CUFF TURNER MACHINE OPERATOR Appointment [facility] [place] [address] Dani Elam MD [facility] [place] [address] 03/14/2025 6:30 AM CUFF TURNER MACHINE OPERATOR Appointment [facility] [place] [address] Dani Elam MD [facility] [place] [address] 03/16/2025 6:30 AM CUFF TURNER MACHINE OPERATOR Appointment [facility] [place] [address] Dani Elam MD [address] [place] [address] 03/19/2025 6:30 AM CUFF TURNER MACHINE OPERATOR Appointment [facility] [place] [address] Dani Elam MD [facility] [place] [address] 03/21/2025 6:30 AM CUFF TURNER MACHINE OPERATOR Appointment [facility] [place] [address] Dani Elam MD [facility] [place] [address] 03/23/2025 6:30 AM CUFF TURNER MACHINE OPERATOR Appointment [facility] [place] [address] Dani Elam MD [facility] [place] [address] 03/26/2025 6:30 AM CUFF TURNER MACHINE OPERATOR Appointment [facility] [place] [address] Dani Elam MD [facility] [place] [address] 03/28/2025 6:30 AM CUFF TURNER MACHINE OPERATOR Appointment [facility] [place] [address] Dani Elam MD [facility] [place] [address] 03/30/2025 6:30 AM CUFF TURNER MACHINE OPERATOR Appointment [facility] [place] [address] Dani Elam MD [facility] [place] [address] 04/02/2025 6:30 AM CUFF TURNER MACHINE OPERATOR Appointment [facility] [place] [address] Dani Elam MD [address] [place] [address] 04/04/2025 6:30 AM CUFF TURNER MACHINE OPERATOR Appointment [facility] [place] [address] Dani Elam MD [address] [place] [address] 04/06/2025 6:30 AM CUFF TURNER MACHINE OPERATOR Appointment [facility] [place] [address] Dani Elam MD [facility] [address] [place] [address] 04/09/2025 6:30 AM CUFF TURNER MACHINE OPERATOR Appointment [facility] [place] [address] Dani Elam MD [address] [place] [address] 04/11/2025 6:30 AM CUFF TURNER MACHINE OPERATOR Appointment [facility] [place] [address] Dani Elam MD [address] [place] [address] 04/13/2025 6:30 AM CUFF TURNER MACHINE OPERATOR Appointment [facility] [place] [address] Dani Elam MD [facility] [place] [address] 04/16/2025 6:30 AM CUFF TURNER MACHINE OPERATOR Appointment [facility] [place] [address] Dani Elam MD [address] [place] [address] 04/18/2025 6:30 AM CUFF TURNER MACHINE OPERATOR Appointment [facility] [place] [address] Dani Elam MD [address] [place] [address] 04/20/2025 6:30 AM CUFF TURNER MACHINE OPERATOR Appointment [facility] [place] [address] Dani Elam MD [address] [place] [address] 04/23/2025 6:30 AM CUFF TURNER MACHINE OPERATOR Appointment [facility] [place] [address] Dani Elam MD [address] [place] [address] 04/25/2025 6:30 AM CUFF TURNER MACHINE OPERATOR Appointment [facility] [place] [address] Dani Elam MD [facility] [place] [address] 04/27/2025 6:30 AM CUFF TURNER MACHINE OPERATOR Appointment [facility] [place] [address] Dani Elam MD [address] [place] [address] 04/30/2025 6:30 AM CUFF TURNER MACHINE OPERATOR Appointment [facility] [place] [address] Dani Elam MD [address] [place] [address] 05/02/2025 6:30 AM CUFF TURNER MACHINE OPERATOR Appointment [facility] [place] [address] Dani Elam MD [address] [place] [address] 05/04/2025 6:30 AM CUFF TURNER MACHINE OPERATOR Appointment [facility] [place] [address] Dani Elam MD [facility] [place] [address] 05/07/2025 6:30 AM CUFF TURNER MACHINE OPERATOR Appointment [facility] [place] [address] Dani Elam MD [facility] [place] [address] 05/09/2025 6:30 AM CUFF TURNER MACHINE OPERATOR Appointment [facility] [place] [address] Dani Elam MD [facility] [place] [address] 05/11/2025 6:30 AM CUFF TURNER MACHINE OPERATOR Appointment [facility] [place] [address] Dani Elam MD [facility] [place] [address] 05/14/2025 6:30 AM CUFF TURNER MACHINE OPERATOR Appointment [facility] [place] [address] Dani Elam MD [facility] [place] [address] 05/16/2025 6:30 AM CUFF TURNER MACHINE OPERATOR Appointment [facility] [address] [place] [address] Dani Elam MD [address] [place] [address] 05/18/2025 6:30 AM CUFF TURNER MACHINE OPERATOR Appointment [facility] [address] [place] [address] Dani Elam MD [address] [place] [address] documented as of this encounter Visit Diagnoses Not on filedocumented in this encounter Care Teams Bow Stapler Relationship Specialty Start Date End Date [facility] [place] [address] PCP - General FAMILY PRACTICE 08/16/18 [place] [address] Buford Baker Paint CARDIOVASCULAR DISEASE 02/18/22 documented as of this encounter
--- OUTSIDE RECORDS SUMMARY | 2025-02-16 14:21 | XMS_ITS | Encounter Summary ---
Author Organization [facility] Address [address] [place] [id number] Care Team Providers Care Author Agent Name Role Phone Dani Elam MD Primary Care Provider [phone] Adriano Suero DO Unavailable [phone] Encounter Details Date Type Department Care Team (Late Contact Info) Description 03/25/2022 Abstract [facility] [address] Codie Paris MA Social History Tobacco Use Types Packs/Day Years Used Date Smoking Tobacco: Never Alcohol Use Standard Drinks/Week Comments Never 0 (1 standard drink = 0.6 oz pur e alcohol) Sex and Gender Information Value Date Recorded Sex Assigned at Male 02/02/2025 6:24 AM CDT Legal Sex Male 5:53 PM FLATWARE MAKER Gender Identity Not on file Sexual Orientation Not on file COVID-19 Exposure Response Date Recorded In the last 10 days, have yo u been in contact with someone who was confirmed or suspected to have Coronavirus/COVID-19? No / Unsure 03/02/2022 8:15 AM FLATWARE MAKER documented as of this encounter Plan of Treatment Upcoming Encounters Date Type Department Care Team (Late Contact Info) Description 02/19/2025 6:30 AM FL[employer]WARE MA[employer] [facility] [address] [place] [address] Dani Elam MD [address] [place] [address] 02/21/2025 6:30 AM FLATWARE MAKER Appointment [facility] [place] [address] Dani Elam MD [address] [place] [address] 02/23/2025 6:30 AM FLATWARE MAKER Appointment [facility] [place] [address] Dani Elam MD [address] [place] [address] 02/26/2025 6:30 AM FLATWARE MAKER Appointment [facility] [place] [address] Dani Elam MD [facility] [place] [address] 02/28/2025 6:30 AM FLATWARE MAKER Appointment [facility] [place] [address] Dani Elam MD [facility] [place] [address] 03/02/2025 6:30 AM FLATWARE MAKER Appointment [facility] [place] [address] Dani Elam MD [facility] [place] [address] 03/05/2025 6:30 AM FLATWARE MAKER Appointment [facility] [place] [address] Dani Elam MD [address] [place] [address] 03/07/2025 6:30 AM FLATWARE MAKER Appointment [facility] [place] [address] Dani Elam MD [address] [place] [address] 03/09/2025 6:30 AM FLATWARE MAKER Appointment [facility] [place] [address] Dani Elam MD [facility] [place] [address] 03/12/2025 6:30 AM FLATWARE MAKER Appointment [facility] [place] [address] Dani Elam MD [facility] [place] [address] 03/14/2025 6:30 AM FLATWARE MAKER Appointment [facility] [place] [address] Dani Elam MD [facility] [place] [address] 03/16/2025 6:30 AM FLATWARE MAKER Appointment [facility] [place] [address] Dani Elam MD [facility] [place] [address] 03/19/2025 6:30 AM FLATWARE MAKER Appointment [facility] [place] [address] Dani Elam MD [facility] [place] [address] 03/21/2025 6:30 AM FLATWARE MAKER Appointment [facility] [place] [address] Dani Elam MD [address] [place] [address] 03/23/2025 6:30 AM FLATWARE MAKER Appointment [facility] [place] [address] Dani Elam MD [address] [place] [address] 03/26/2025 6:30 AM FLATWARE MAKER Appointment [facility] [place] [address] Dani Elam MD [address] [place] [place] [address] 03/28/2025 6:30 AM FLATWARE MAKER Appointment [facility] [place] [address] Dani Elam MD [address] [place] [address] 03/30/2025 6:30 AM FLATWARE MAKER Appointment [facility] [place] [address] Dani Elam MD [address] [place] [address] 04/02/2025 6:30 AM FLATWARE MAKER Appointment [facility] [place] [address] Dani Elam MD [address] [place] [address] 04/04/2025 6:30 AM FLATWARE MAKER Appointment [facility] [place] [address] Dani Elam MD [address] [place] [address] 04/06/2025 6:30 AM FLATWARE MAKER Appointment [facility] [place] [address] Dani Elam MD [address] [place] [address] 04/09/2025 6:30 AM FLATWARE MAKER Appointment [facility] [place] [address] Dani Elam MD [address] [place] [address] 04/11/2025 6:30 AM FLATWARE MAKER Appointment [facility] [place] [address] Dani Elam MD [address] [place] [address] 04/13/2025 6:30 AM FLATWARE MAKER Appointment [facility] [place] [address] Dani Elam MD [address] [place] [address] 04/16/2025 6:30 AM FLATWARE MAKER Appointment [facility] [place] [address] Dani Elam MD [address] [place] [address] 04/18/2025 6:30 AM FLATWARE MAKER Appointment [facility] [place] [address] Dani Elam MD [address] [place] [address] 04/20/2025 6:30 AM FLATWARE MAKER Appointment [facility] [place] [place] [address] Dani Elam MD [address] [place] [address] 04/23/2025 6:30 AM FLATWARE MAKER Appointment [facility] [place] [address] Dani Elam MD [facility] [place] [address] 04/25/2025 6:30 AM FLATWARE MAKER Appointment [facility] [place] [address] Dani Elam MD [facility] [place] [address] 04/27/2025 6:30 AM FLATWARE MAKER Appointment [facility] [place] [address] Dani Elam MD [facility] [place] [address] 04/30/2025 6:30 AM FLATWARE MAKER Appointment [facility] [place] [address] Dani Elam MD [facility] [place] [address] 05/02/2025 6:30 AM FLATWARE MAKER Appointment [facility] [place] [address] Dani Elam MD [facility] [place] [address] 05/04/2025 6:30 AM FLATWARE MAKER Appointment [facility] [place] [address] Dani Elam MD [address] [place] [address] 05/07/2025 6:30 AM FLATWARE MAKER Appointment [facility] [address] [place] [address] Dani Elam MD [address] 05/09/2025 6:30 AM FLATWARE MAKER Appointment [facility] [place] [address] Dani Elam MD [address] [place] [address] 05/11/2025 6:30 AM FLATWARE MAKER Appointment [facility] [place] [address] Dani Elam MD [address] [place] [address] 05/14/2025 6:30 AM FLATWARE MAKER Appointment [facility] [place] [address] Dani Elam MD [address] [place] [address] 05/16/2025 6:30 AM FLATWARE MAKER Appointment [facility] [place] [address] Dani Elam MD [address] [place] [address] 05/18/2025 6:30 AM FLATWARE MAKER Appointment [facility] [place] [address] Dani Elam MD [address] [place] [address] documented as of this encounter Procedures Procedure Name Priority Date/Time Associated Diagnosis Comments LIPID PANEL Routine 04/01/2022 NT-PRO BNP [place] Routine 03/24/2022 documented in this encounter Results * LIPID PANEL (04/01/2022) CHOLESTEROL 161 HDL 54 TRIGLYCERIDES 87 LDL (CALCULATED) 75 04/01/2022 us Default History Genericprovider LABORATORY Final Result * Nt-Pro Bnp [place] (03/24/2022) PRO-BRAIN NATRIURETIC PEPTIDE 93 03/24/2022 us Default History Genericprovider GENERAL SUPPLY & EQUIPMENT ORDERABLES Final Result documented in this encounter Visit Diagnoses Not on filedocumented in this encounter Care Teams Author Agent Relationship Specialty Start Date End Date Dani Elam MD [address] [place] [address] PCP - General FAMILY PRACTICE 08/16/18 Adriano Suero DO [address] [place] [address] [place] [employer] Business Analyst CARDIOVASCULAR DISEASE 02/18/22 documented as of this encounter
--- OUTSIDE RECORDS SUMMARY | 2025-02-16 14:21 | XMS_ITS | Clinical Summary ---
Author Organization [facility] Address [address] [address] Phone Care Team Providers Care Sole Filler Name Role Phone Dani Elam MD Primary Care Provider [phone] Dana Urrutia APRN, VEHICLE UPHOLSTERER Unavailable Allergies No known active allergies Medications [...] Comments Blood Pressure 139/73 03/14/2018 8:35 AM SENIOR C WEB DEVELOPER Pulse 79 03/14/2018 8:35 AM SENIOR C WEB DEVELOPER Temperature 36 C (96.8 F) 03/14/2018 8:35 AM SENIOR C WEB DEVELOPER Respiratory Rate 13 03/14/2018 8:35 AM SENIOR C WEB DEVELOPER Oxygen Saturation 98% 03/14/2018 8:35 AM SENIOR C WEB DEVELOPER Inhaled Oxygen Concentration - - Weight 129.3 kg (285 lb) 04/02/2020 1:00 PM SENIOR C WEB DEVELOPER Height 180.3 cm (5' 11) 04/02/2020 1:00 PM SENIOR C WEB DEVELOPER Body Mass Index 39.75 04/02/2020 1:00 PM SENIOR C WEB DEVELOPER Plan of Treatment Health Maintenance Due Date Last Done Comments Hepatitis C Virus (HCV) Screening 1955 TdaP Immunization 1954 Cologuard 1999 Immunochemical Fecal Occult Blood 1999 Pneumococcal Immunization (5 0+ years) (1 of 1 - PCV) 2004 Zoster Immunization (1 of 2) 2004 Colonoscopy 03/14/2020 03/14/2018, 03/04/2016 Colorectal Cancer Screening 03/14/2020 Medicare Initial AWV [id number] 05/13/2020 Influenza Immunization (#1) 2024 02/01/2019 SARS-COV-2 Immunization (2024- season) 2024 01/26/2021, 06/26/2020, 06/06/2020 Respiratory Syncytial Virus (RSV) Immunization (Adult) (1 [...] age to complete this topic Insurance MEDICARE [facility] Care Teams Sole Filler Relationship Specialty Start Date End Date Dani Elam MD [address] [place] [address] PCP - General Family Medicine 02/28/16 Dana Urrutia, FINANCIAL SERVICE PROFESSIONAL, VEHICLE [place] [address] Nurse Practitioner Advanced Practice Nurse 04/10/16
--- OUTSIDE RECORDS SUMMARY | 2025-02-16 14:21 | XMS_ITS | Clinical Summary ---
Author Organization [facility] Address [address] [place] [address] [address] Team Prov[address] Light Mechanic Name Role Phone Dani Elam MD Primary Care Provider [phone] Nimo Cooper DO Unavailable [phone] Allergies No known active allergies Medications valsartan [...] 03/02/2022 Assessment & Plan (02/15/2023 10:18 AM ANESTHESIOLOGY PHYSICIAN): Patient remains relatively asymptomatic with his aortic stenosis. The dyspnea is relatively unchanged and had prior normal proBNP. We will repeat his proBNP and if this remains normal I see no need for alteration to his current treatment plan. Assessment & Plan (03/02/2022 9:13 AM ANESTHESIOLOGY PHYSICIAN): With a mean gradient of 28 mmHg the patient has moderate to severe aortic stenosis but remains asymptomatic. I plan to obtain proBNP value to assess his filling pressures noninvasively but if this remains less than 400 we will continue with conservative management and reassess his gradients in 1 year. Bicuspid aortic valve 03/02/2022 Assessment & Plan (02/15/2023 10:18 AM ANESTHESIOLOGY PHYSICIAN): Patient's ascending aortic dimensions remain stable, his aortic root was 4.4 cm. He will continue with tight blood pressure control. Assessment & Plan (03/02/2022 9:14 AM ANESTHESIOLOGY PHYSICIAN): There was no mention of ascending aortic enlargement associated with the suspicion of bicuspid aortic valve. We will reassess and comment on this with his next echocardiogram. Abnormal glucose 03/02/2022 Assessment & Plan (03/02/2022 8:48 AM ANESTHESIOLOGY PHYSICIAN): Patient reports historical abnormal blood sugars but has not required therapy. With his metabolic syndrome it would be reasonable to remain aggressive with his LDL cholesterol targeting a value of 70 mg/dL or less. We will obtain his most recent lipid profile and address this accordingly. Encounters Date Type Department Care Team Description 02/16/2025 6:21 AM ANESTHESIOLOGY PHYSICIAN Hospital Encounter [facility] [place] [place] [address] Dani Elam MD Arrived 02/16/2025 Travel 02/14/2025 6:27 AM ANESTHESIOLOGY PHYSICIAN - 02/14/2025 11:59 PM ANESTHESIOLOGY PHYSICIAN Hospital Encounter [facility] [place] [address] [address] Dani Elam MD Discharge Disposition: Home or Self Care (Routine Discharge) 02/14/2025 Travel 02/12/2025 6:30 AM ANESTHESIOLOGY PHYSICIAN - 02/12/2025 11:59 PM [facility] Hospital Encounter [facility] [place] [address] Dani Elam MD Discharge Disposition: Home or Self Care (Routine Discharge) 02/12/2025 Travel 02/09/2025 6:30 AM CDT - 02/09/2025 11:59 PM CDT [facility] [address] [place] [address] [place] [address] Dani Elam MD Discharge Disposition: Home or Self Care (Routine Discharge) 02/09/2025 Travel 02/07/2025 6:30 AM CDT - 02/07/2025 11:59 PM CDT Hospital Encounter [facility] [address] [place] [address] [place] [address] Dani Elam MD Discharge Disposition: Home or Self Care (Routine Discharge) 02/07/2025 Travel 02/05/2025 6:28 AM CDT - 02/05/2025 11:59 PM CDT Hospital [facility] [address] [place] [address] [place] [address] Dani Elam MD Discharge Disposition: Home or Self Care (Routine Discharge) 02/05/2025 Travel 02/02/2025 6:26 AM CDT - 02/02/2025 11:59 PM CDT Hospital [facility] [address] [place] [address] [place] [address] Dani Elam MD Discharge Disposition: Home or Self Care (Routine Discharge) 02/02/2025 Travel from Last 3 Months Immunizations Immunization Administration Dates Next Due Fluzone [...] AM CDT Legal Sex Male 5:53 PM ANESTHESIOLOGY PHYSICIAN Gender Identity Not on file Sexual Orientation Not on file Last Filed Vital Signs Vital Sign Reading Time Taken Comments Blood Pressure 130/80 05/08/2024 9:27 AM ANESTHESIOLOGY PHYSICIAN Pulse 76 05/08/2024 9:27 AM ANESTHESIOLOGY PHYSICIAN Temperature - - Respiratory Rate 19 05/08/2024 9:27 AM ANESTHESIOLOGY PHYSICIAN Oxygen Saturation 95% 05/08/2024 9:27 AM ANESTHESIOLOGY PHYSICIAN Inhaled Oxygen Concentration - - Weight 141.7 kg (312 lb 6.4 oz) 05/08/2024 9:27 AM ANESTHESIOLOGY PHYSICIAN Height 175.3 cm (5' 9) 05/08/2024 9:27 AM ANESTHESIOLOGY PHYSICIAN Body Mass Index 46.13 05/08/2024 9:27 AM ANESTHESIOLOGY PHYSICIAN Plan of Treatment Upcoming Encounters Date Type Department Care Team (Late st Contact Info) Description 02/19/2025 6:30 AM ANESTHESIOLOGY PHYSICIAN Appointment [facility] [place] [address] Dani Elam MD [address] [place] [address] 02/21/2025 6:30 AM ANESTHESIOLOGY PHYSICIAN Appointment [facility] [place] [address] Dani Elam MD [address] [place] [phone] 02/23/2025 6:30 AM ANESTHESIOLOGY PHYSICIAN Appointment [facility] [place] [address] Dani Elam MD [address] [place] [phone] 02/26/2025 6:30 AM ANESTHESIOLOGY PHYSICIAN Appointment [facility] [place] [address] Dani Elam MD [address] [place] [phone] 02/28/2025 6:30 AM ANESTHESIOLOGY PHYSICIAN Appointment [facility] [place] [address] Dani Elam MD [address] [place] [phone] 03/02/2025 6:30 AM ANESTHESIOLOGY PHYSICIAN Appointment [facility] [place] [address] Dani Elam MD [address] [place] [address] 03/05/2025 6:30 AM ANESTHESIOLOGY PHYSICIAN [facility] [place] [address] Dani Elam MD [address] [place] [phone] 03/07/2025 6:30 AM ANESTHESIOLOGY PHYSICIAN Appointment [facility] [place] [address] Dani Elam MD [address] [place] [address] 03/09/2025 6:30 AM ANESTHESIOLOGY PHYSICIAN Appointment [facility] [place] [address] Dani Elam MD [address] [place] [phone] 03/12/2025 6:30 AM ANESTHESIOLOGY PHYSICIAN Appointment [facility] [address] [place] [address] Dani Elam MD [address] [place] [phone] 03/14/2025 6:30 AM ANESTHESIOLOGY PHYSICIAN Appointment [facility] [place] [address] Dani Elam MD [address] 03/16/2025 6:30 AM ANESTHESIOLOGY PHYSICIAN Appointment [facility] [place] [address] Dani Elam MD [address] [place] [address] 03/19/2025 6:30 AM ANESTHESIOLOGY PHYSICIAN Appointment [facility] [place] [address] Dani Elam MD [address] [place] [address] 03/21/2025 6:30 AM ANESTHESIOLOGY PHYSICIAN Appointment [facility] [place] [address] Dani Elam MD [facility] [place] [address] 03/23/2025 6:30 AM ANESTHESIOLOGY PHYSICIAN Appointment [facility] [place] [address] Dani Elam MD [address] [place] [address] 03/26/2025 6:30 AM ANESTHESIOLOGY PHYSICIAN Appointment [facility] [place] [address] Dani Elam MD [address] [place] [phone] 03/28/2025 6:30 AM ANESTHESIOLOGY PHYSICIAN Appointment [facility] [place] [address] Dani Elam MD [facility] [place] [address] 03/30/2025 6:30 AM ANESTHESIOLOGY PHYSICIAN Appointment [facility] [place] [address] Dani Elam MD [facility] [address] [place] [address] 04/02/2025 6:30 AM ANESTHESIOLOGY PHYSICIAN Appointment [facility] [place] [address] Dani Elam MD [facility] [address] [place] [address] 04/04/2025 6:30 AM ANESTHESIOLOGY PHYSICIAN Appointment [facility] [place] [address] Dani Elam MD [facility] [address] [place] [address] 04/06/2025 6:30 AM ANESTHESIOLOGY PHYSICIAN Appointment [facility] [place] [address] Dani Elam MD [facility] [place] [address] 04/09/2025 6:30 AM ANESTHESIOLOGY PHYSICIAN Appointment [facility] [place] [address] Dani Elam MD [facility] [place] [address] 04/11/2025 6:30 AM ANESTHESIOLOGY PHYSICIAN Appointment [facility] [place] [address] Dani Elam MD [address] [place] [address] 04/13/2025 6:30 AM ANESTHESIOLOGY PHYSICIAN Appointment [facility] [place] [address] Dani Elam MD [address] [place] [address] 04/16/2025 6:30 AM ANESTHESIOLOGY PHYSICIAN Appointment [facility] [place] [address] Dani Elam MD [address] [place] [address] 04/18/2025 6:30 AM ANESTHESIOLOGY PHYSICIAN Appointment [facility] [place] [address] Dani Elam MD [address] [place] [address] 04/20/2025 6:30 AM ANESTHESIOLOGY PHYSICIAN Appointment [facility] [place] [address] Dani Elam MD [address] [place] [address] 04/23/2025 6:30 AM ANESTHESIOLOGY PHYSICIAN Appointment [facility] [place] [address] Dani Elam MD [address] [place] [address] 04/25/2025 6:30 AM ANESTHESIOLOGY PHYSICIAN Appointment [facility] [address] [place] [address] Dani Elam MD [address] [place] [phone] 04/27/2025 6:30 AM ANESTHESIOLOGY PHYSICIAN Appointment [facility] [place] [address] Dani Elam MD [address] [place] [address] 04/30/2025 6:30 AM ANESTHESIOLOGY PHYSICIAN Appointment [facility] [place] [address] Dani Elam MD [address] [place] [address] 05/02/2025 6:30 AM ANESTHESIOLOGY PHYSICIAN Appointment [facility] [place] [address] Dani Elam MD [address] [place] [address] 05/04/2025 6:30 AM ANESTHESIOLOGY PHYSICIAN Appointment [facility] [place] [address] Dani Elam MD [address] [place] [address] 05/07/2025 6:30 AM ANESTHESIOLOGY PHYSICIAN Appointment [facility] [place] [address] Dani Elam MD [address] [place] [address] 05/09/2025 6:30 AM ANESTHESIOLOGY PHYSICIAN Appointment [facility] [place] [address] Dani Elam MD [address] [place] [phone] 05/11/2025 6:30 AM ANESTHESIOLOGY PHYSICIAN Appointment [facility] [place] [address] Dani Elam MD [address] [place] [address] [place] [address] 05/14/2025 6:30 AM ANESTHESIOLOGY PHYSICIAN Appointment [facility] [place] [address] Dani Elam MD [address] [place] [address] [place] [address] 05/16/2025 6:30 AM ANESTHESIOLOGY PHYSICIAN Appointment [facility] [place] [address] Dani Elam MD [address] [place] [address] [place] [address] 05/18/2025 6:30 AM ANESTHESIOLOGY PHYSICIAN [facility]ment [facility] [place] [address] Dani Elam MD [address] [place] [address] [place] [address] Health Maintenance Due Date Last Done Comments Colorectal Cancer Screening Colonoscopy (10 Years) 1954 Hepatitis C 1972 DTaP, Tdap and Td Vaccines (1 - Tdap) 1973 RSV Immunization or 60+ Years (1 - Risk 60-74 years 1-dose series) 2014 AAA SCREENING 2019 Annual Medicare Wellness Visit 2019 Pneumococcal Vaccine: 50+ Years (2 of 2 - PCV) 02/03/2024 02/02/2023 COVID-19 Vaccine ( season) 2024 03/13/2023, 01/24/2022, 01/26/2021, Additional history exists Influenza Adult (#1) 2025 02/02/2023, 01/24/2022, 01/26/2021, Additional history exists Zoster Vaccines Completed 03/13/2023, 02/02/2023 Hepatitis A Vaccines Aged Out No long er eligible based on patient's age to complete this topic Meningococcal B Vaccine Aged Out No l onger eligible based on patient's age to complete this topic Meningococcal Vaccine Aged Out No clemencia araceli eligible based on patient's age to complete this topic RSV Immunizations Under 20 Months Aged Out No longer eligible based on patient's age to complete this topic Insurance MEDICARE [facility] MEDICARE AARP Care Teams Street Light Mechanic Relationship Specialty Start Date End Date Dani Elam MD [address] [place] [place] [phone] PCP - General FAMILY PRACTICE 08/16/18 Adriano Suero DO [address] [place] [phone] [place] [employer] Officer CARDIOVASCULAR DISEASE 02/18/22
--- OUTSIDE RECORDS SUMMARY | 2025-02-16 14:21 | XMS_ITS | Encounter Summary ---
Author Organization [facility] Address [facility] [place] [address] Care Team Providers Care Cad Designer Drafter Name Role Phone Dani Elam MD Primary Care Provider GreyAdriano nguyen DO Unavailable [phone] Encounter Details Date Type Department Care Team (Latest Contact Info) Description 02/16/2025 Travel Social History Tobacco Use Types Packs/Day Years Used Date Smoking Tobacco: Never Alcohol Use Standard Drinks/Week Comments Never 0 (1 standard drink = 0.6 oz pur e alcohol) Sex and Gender Information Value Date Recorded Sex Assigned at Male 02/02/2025 6:24 AM CDT Legal Sex Male 5:53 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 Gender Identity Not on file Sexual Orientation Not on file documented as of this encounter Plan of Treatment Upcoming Encounters Date Type Department Care Team (Late st Contact Info) Description 02/19/2025 6:30 AM HR GENERALIST Appointment [facility] [place] [address] Dani Elam MD [address] [place] [address] 02/21/2025 6:30 AM HR GENERALIST Appointment [facility] [address] [address] Dani Elam MD [address] [place] [address] 02/23/2025 6:30 AM HR GENERALIST Appointment [facility] [place] [address] Dani Elam MD [address] [place] [id number] 02/26/2025 6:30 AM HR GENERALIST Appointment [facility] [place] [address] Dani Elam MD [address] [place] [address] 02/28/2025 6:30 AM HR GENERALIST Appointment [facility] [place] [address] Dani Elam MD [address] [place] [address] 03/02/2025 6:30 AM HR GENERALIST App[facility]ment [facility] [place] [address] Dani Elam MD [address] [place] [address] 03/05/2025 6:30 AM HR GENERALIST Appointment [facility] [place] [address] Dani Elam MD [address] [place] [address] 03/07/2025 6:30 AM HR GENERALIST Appointment [facility] [place] [address] Dani Elam MD [address] [place] [phone] 03/09/2025 6:30 AM HR GENERALIST Appointment [facility] [address] [place] [address] Dani Elam MD [address] [place] [address] 03/12/2025 6:30 AM HR GENERALIST Appointment [facility] [place] [address] Dani Elam MD [address] [place] [address] 03/14/2025 6:30 AM HR GENERALIST Appointment [facility] [place] [address] Dani Elam MD [facility] [place] [address] 03/16/2025 6:30 AM HR GENERALIST Appointment [facility] [place] [address] Dani Elam MD [facility] [place] [address] 03/19/2025 6:30 AM HR GENERALIST Appointment [facility] [place] [address] Dani Elam MD [facility] [address] [place] [address] 03/21/2025 6:30 AM HR GENERALIST Appointment [facility] [place] [address] Dani Elam MD [facility] [place] [address] 03/23/2025 6:30 AM HR GENERALIST Appointment [facility] [place] [address] Dani Elam MD [address] [place] [address] 03/26/2025 6:30 AM HR GENERALIST Appointment [facility] [place] [address] Dani Elam MD [facility] [place] [address] 03/28/2025 6:30 AM HR GENERALIST Appointment [facility] [place] [address] Dani Elam MD [facility] [address] [place] [address] 03/30/2025 6:30 AM HR GENERALIST Appointment [facility] [place] [address] Dani Elam MD [facility] [address] [place] [address] 04/02/2025 6:30 AM HR GENERALIST Appointment [facility] [place] [address] Dani Elam MD [facility] [address] [place] [address] 04/04/2025 6:30 AM HR GENERALIST Appointment [facility] [place] [address] Dani Elam MD [facility] [place] [address] 04/06/2025 6:30 AM HR GENERALIST Appointment [facility] [place] [address] Dani Elam MD [facility] [place] [address] 04/09/2025 6:30 AM HR GENERALIST Appointment [facility] [place] [address] Dani Elam MD [address] [place] [address] 04/11/2025 6:30 AM HR GENERALIST Appointment [facility] [place] [address] Dani Elam MD [address] [place] [address] 04/13/2025 6:30 AM HR GENERALIST Appointment [facility] [place] [address] Dani Elam MD [address] [place] [address] 04/16/2025 6:30 AM HR GENERALIST App[facility]ment [facility] [place] [address] Dani Elam MD [address] [place] [address] 04/18/2025 6:30 AM HR GENERALIST Appointment [facility] [place] [place] [address] Dani Elam MD [address] [place] [address] 04/20/2025 6:30 AM HR GENERALIST Appointment [facility] [place] [place] [address] Dani Elam MD [address] [place] [address] 04/23/2025 6:30 AM HR GENERALIST Appointment [facility] [address] [place] [address] Dani Elam MD [address] [place] [address] 04/25/2025 6:30 AM HR GENERALIST Appointment [facility] [place] [address] Dani Elam MD [address] [place] [address] 04/27/2025 6:30 AM HR GENERALIST Appointment [facility] [place] [address] Dani Elam MD [address] [place] [address] 04/30/2025 6:30 AM HR GENERALIST Appointment [facility] [place] [address] Dani Elam MD [address] [place] [address] 05/02/2025 6:30 AM HR GENERALIST App[facility]ment [facility] [place] [address] Dani Elam MD [address] [place] [address] 05/04/2025 6:30 AM HR GENERALIST Appointment [facility] [place] [address] Dani Elam MD [address] [place] [address] 05/07/2025 6:30 AM HR GENERALIST Appointment [facility] [place] [address] Dani Elam MD [facility] [place] [address] 05/09/2025 6:30 AM HR GENERALIST Appointment [facility] [place] [address] Dani Elam MD [facility] [address] 05/11/2025 6:30 AM HR GENERALIST Appointment [facility] [place] [address] Dani Elam MD [facility] [address] [place] [address] 05/14/2025 6:30 AM HR GENERALIST Appointment [facility] [place] [address] Dani Elam MD [facility] [address] [place] [address] 05/16/2025 6:30 AM HR GENERALIST Appointment [facility] [place] [address] Dani Elam MD [facility] [address] [place] [address] 05/18/2025 6:30 AM HR GENERALIST Appointment [facility] [place] [address] Dani Elam MD [facility] [place] [address] documented as of this encounter Visit Diagnoses Not on filedocumented in this encounter Care Teams Cad Designer Drafter Relationship Specialty Start Date End Date Dani Elam MD [address] [place] [address] PCP - General FAMILY PRACTICE 08/16/18 [place] [address] [place], [place] [address] [address] [place] [employer] Resource Engineer CARDIOVASCULAR DISEASE 02/18/22 documented as of this encounter
--- OUTSIDE RECORDS SUMMARY | 2025-02-16 14:22 | XMS_ITS | Encounter Summary ---
Author Organization 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 Gender Identity Not on file Sexual Orientation Not on file documented as of this encounter Plan of Treatment Not on file documented as of this encounter Procedures Procedure Name Priority Date/Time Associated Diagnosis Comments CARDIOLOGY DOCUMENT SCAN 04/07/2024 documented in this encounter Results * Cardiology Document Scan (04/07/2024) Anatomical Region Laterality Modality Other us Provider Scanning CV CARDIAC SERVICES PROCEDURES Final Result documented in this encounter Visit Diagnoses Not on filedocumented in this encounter Additional Health Concerns Infection Onset Date Last Indicated Resolved Time Ring Surveillance: Danika huynh Comment:This flag is used to identify patient who are in house who are being monitored by Infection Prevention. If the patient is discharged and a swab has not been collected, if patient returns to hospital within 7 days a surveillance swab is to be collected (Reach out to IP for order) Patient does NOT need isolation, patient can travel off the floor. 12/01/2024 12/01/2024 12/08/2024 7:26 PM C DT documented as of this encounter Care Teams General Handling Supervisor Relationship Specialty Start Date End Date No, Physician PCP - General 01/31/19 08/09/24 Dani Elam MD [address] [facility] [place] [address] PCP - General Family Medicine 08/10/24 Miscellaneous, Not In File Unit Director 09/06/24 Daniel Pedraza MD [id number] [place] [address] Consulting Physician Cardiothoracic Surgery 12/05/24 documented as of this encounter
--- OUTSIDE RECORDS SUMMARY | 2025-02-16 14:22 | XMS_ITS | Clinical Summary ---
Author Organization [facility] Address [address] [place] [address] Phone Care Team Providers Care Leather Worker Name Role Phone Dani Elam MD Primary Care Provider [phone] Immunizations Immunization Administration Dates Next Due (PFIZER)(12 YR UP) COVID-19 VACCINE - EMERGENCY USE AUTHORIZATION, MRNA, [id number](PF) 30 MCG/0.3 ML IM SUSP 06/26/2020,06/06/2020 Social History Tobacco Use Types Packs/Day Years Used Date Smoking Tobacco: Never Assessed Sex and Gender Information Value Date Recorded Sex Assigned at Not on file Legal Sex Male 4:11 PM NURSERY ATTENDANT Gender Identity Not on file Sexual Orientation Not on file Plan of Treatment Health Maintenance Due Date Last Done Comments DTAP/TDAP/TD VACCINES (1 - Tdap) 1973 COLORECTAL SCREENING 1999 Colorectal Cancer Screening 1999 FIT-DNA Q 3 years 1999 FIT/FOBT Q 1 year 1999 Flex Sig/CT Colonography Q 5 years 1999 PNEUMOCOCCAL VACCINE 50+ YEA RS (1 of 1 - PCV) 2004 ZOSTER VACCINE (1 of 2) 2004 INFLUENZA VACCINE (#1) 2024 03/01/2020, 2018 COVID-19 Vaccine (3 - season) 2024, 06/06/2020 RSV VACCINE (60+ or ) (1 - 1-dose 75+ series) 2029 Insurance MEDICARE PART A AND B Care Teams Leather Worker Relationship Specialty Start Date End Date Dani Elam MD [address] [place] [address] PCP - General Family Practice 06/26/20
--- OUTSIDE RECORDS SUMMARY | 2025-02-16 14:22 | XMS_ITS | Clinical Summary ---
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 Name Role Phone Dani Elam MD Primary Care Provider [phone] Miscellaneous, Not In File Unavailable Unava ilable Daniel Pedraza MD Unavailable [phone] Allergies No known active allergies Medications atorvastatin (LIPITOR) 40 mg tabletIndicati ons:hyperlipid emia Take 1 tablet (40 mg total) by mouth nightly 3 Active cholecalcifero l (VITAMIN D-3) 29325 unit tablet Take 0.12 tablets (1,200 Units total) by mouth nightly Active multivitamin,t h-kikk-El-FA-m in 27-0.4 mg tablet Take 1 tablet by mouth nightly Active azelastine (ASTELIN) 137 mcg (0.1 %) nasal spray Administer 2 sprays into each nostril nightly 5 Active aspirin 81 mg enteric coated tabletIndicati ons:prevention of thrombosis Take 1 tablet (81 mg total) by mouth nightly Active oxyCODONE (ROXICODONE) 5 mg immediate release tabletIndicati ons:Pain Take 1 tablet (5 mg total) by mouth every 4 (four) hours as needed for pain for up to 20 doses 20 tablet 5 Active acetaminophen (TYLENOL) 325 mg tablet Take 2 tablets (650 mg total) by mouth every 6 (six) hours 5 Active docusate sodium (COLACE) 100 mg capsuleIndicat ions:constipat ion Take 1 capsule (100 mg total) by mouth 2 (two) times a day as needed for constipation 5 Active metoprolol tartrate (LOPRESSOR) 25 mg immediate release tablet Take 0.5 tablets (12.5 mg total) by mouth 2 (two) times a day 30 tablet 1 5 12/06/19 26 Active polyethylene glycol (MIRALAX) 17 gram/dose bulk powderIndicati ons:constipati on Take 17 g by mouth daily for 14 days Active furosemide (LASIX) 40 mg tablet Take 1 tablet (40 mg total) by mouth 2 (two) times a day for 14 days, THEN 1 tablet (40 mg total) daily. 68 tablet 5 Active potassium chloride ER (KLOR-CON) 20 mEq CR tablet Take 2 tablets (40 mEq total) by mouth 2 (two) times a day for 14 days, THEN 2 tablets (40 mEq total) daily. 136 tablet 5 01/29/20 25 Active Problems Problem Noted Date Diagnosed Date Aortic stenosis due to bicuspid aortic valve Postoperative pain 12/01/2024 Nonrheumatic aortic valve stenosis 10/23/2024 Essential hypertension 02/01/2019 Hyperlipidemia 02/01/2019 Ulcerative colitis without complications 019 Murmur, cardiac 02/01/2019 Transient memory loss 02/01/2019 Class 3 severe obesity in adult 02/01/2019 Transient alteration of awareness Encounters Date Type Department Care Team Description 01/16/2025 9:45 AM CDT - 01/16/2025 11:59 PM CDT Hospital Encounter [facility] - [facility] Imaging Center [address] [place] [address] S/P AVR (aortic valve replacement) Discharge Disposition: Discharge to home or self care 01/16/2025 9:15 AM CDT Office Visit [facility] Medicine Surgery [facility] [place] [address] Daniel Pedraza MD S/P AVR (Primary Dx) 01/16/2025 8:30 AM CDT Ancillary Procedure [facility] [address] [place] [address] S/P AVR (aortic valve replacement) 12/13/2024 Telephone [facility] Cardiology [address] [place] [address] [place] [phone] Leela Merino 12/05/2024 Orders Only [facility] Cardiothoracic Surgery [address] [place] [phone] Daniel Pedraza MD S/P AVR (aortic valve replacement) (Primary Dx) 12/01/2024 7:00 AM CDT - 12/01/2024 2:10 PM CDT Surgery [facility] [address] [place] [address] Daniel Pedraza MD AORTIC VALVE REPLACEMENT WITH 29 MM INSPIRIS BIOPROSTHETIC 12/01/2024 6:56 AM CDT Anesthesia Event [facility] [address] [place] [address] Itzel Del Rio MD PhD Carole Ramirez NP 12/01/2024 5:35 AM CDT Ancillary Procedure [facility] [address] [place] [address] 12/01/2024 5:20 AM CDT - 12/05/2024 1:02 PM CDT Hospital Encounter [address] [address] Daniel Pedraza MD Postoperative pain (Primary Dx); Nonrheumatic aortic valve stenosis; Aortic stenosis due to bicuspid aortic valve; S/P AVR Discharge Disposition: Discharge to home, home health skilled care from Last 3 Months Immunizations Immunization Administration Dates Next Due Influenza, Quadrivalent, Spl it, Preservative Free, Intramuscular 02/01/2019 Surgical History Surgery Date Site/Laterality Comments HERNIA REPAIR COLONOSCOPY TONSILLECTOMY CARDIAC CATHETERIZATION 11/15/2024 Left Procedure: LEFT HEART CATHETERIZATION WITH CORONARY ANGIOGRAPHY AND WITH OR WITHOUT LEFT VENTRICULOGRAM [id number]; Surgeon: Rolando Reddy MD; Location: [facility] CARDIAC LMFT; Service: Cardiovascular; Laterality: Left; Medical History Medical History Date Comments Hypertension Hyperlipidemia Obesity Ulcerative colitis Severe aortic stenosis TIA (transient ischemic attack) Bicuspid aortic valve Ascending aortic aneurysm Family History Medical History Relation Name Comments Heart disease Father CABG in his 60 's and 70's Relation Name Status Comments Father Social History Tobacco Use Types Packs/Day Years Used Date Smoking Tobacco: Never Smokeless Tobacco: Never Alcohol Use Standard Drinks/Week Comments Never 0 (1 standard drink = 0.6 oz pur e alcohol) AUDIT-C Answer Date Recorded Q1: How often do you have a drink containing alcohol? Never 11/15/2024 Q2: How many drinks containi ng alcohol do you have on a typical day when you are drinking? Patient does not drink Q3: How often do you have si x or more drinks on one occasion? Never 11/15/2024 PHQ-2 Answer Date Recorded PHQ-2 Score 0 01/31/2019 Personal Safety Answer Date Recorded Have you ever been in or are you currently in a harmful physical or emotional relationship or is someone making you feel afraid or unsafe? 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 Gender Identity Not on file Sexual Orientation Not on file Last Filed Vital Signs Vital Sign Reading Time Taken Comments Blood Pressure 130/88 01/16/2025 9:01 AM CDT Pulse 61 01/16/2025 9:01 AM CDT Temperature 37 C (98.6 F) 12/05/2024 7:20 AM CDT Respiratory Rate 20 12/05/2024 7:20 AM CDT Oxygen Saturation 97% 01/16/2025 9:01 AM CDT Inhaled Oxygen Concentration - - Weight 134.7 kg (297 lb) 01/16/2025 9:01 AM CDT Height 177.8 cm (5' 10) 01/16/2025 9:01 AM CDT Body Mass Index 42.62 01/16/2025 9:01 AM CDT Plan of Treatment Health Maintenance Due Date Last Done Comments Colon Cancer Screening-Colonoscopy 1955 Hepatitis C Screening 1955 Hepatitis B Screening 1972 Well Visit 65+ 2019 Depression Screening 02/01/2020 01/31/2019 Pneumococcal vaccine 65+ (2 of 2 - PCV) 02/03/2024 02/02/2023 Covid-19 Vaccine (7 - 2024-2 6 season) 2024 01/29/2024, 03/13/2023, 01/24/2022, Additional history exists Influenza Vaccine (#1) 2024 , 02/02/2023, 01/24/2022, Additional history exists Fall Risk Assessment 12/05/2025 12/05/2024 DTaP/Tdap/Td Vaccine (2 - Td or Tdap) 01/28/2034 01/29/2024 Zoster Vaccine Completed 03/13/2023, 02/02/2023 Medical Devices Implanted Type Area C Engineer Device Identifier Shelf Expiration Date Model / Serial / Lot [employer] Inspiris Resilia Leaflet Sewing Ring Aortic Valve 29mm [id number] - [id number] - [id number] Implanted:Qty: 1 on 12/01/2024 by Daniel Pedraza MD at [facility] N/A: Heart [employer] [id number] 07/12/2029 [id number] / [id number] / [employer] Device Closure Tigertape Sternal Cerclage Blunt Needle Ar-[id number] - [id number] Implanted:Qty: 3 on 12/01/2024 by Daniel Pedraza MD at [facility] N/A: Sternum [employer] [id number] 04/11/2029 AR-[id number] / / [id number] [employer] Device Closure Fibertape Sternal Cerclage Cutting Needle Ar-7288 - [id number] Implanted:Qty: 1 on 12/01/2024 by Daniel Pedraza MD at [facility] N/A: Sternum [employer] [id number] 09/09/2029 AR-[id number] / / [id number] [employer] Plate Bone Low Profile 6 Hole H Shape Sternum Ti 115.102.06 - [id number] Implanted:Qty: 2 on 12/01/2024 by Daniel Pedraza MD at [facility] N/A: Sternum [employer] 115.102.0 6 / / [employer] Plate Bone Low Profile 6 Hole O Shape Sternum Ti 115.104.06 - [id number] Implanted:Qty: 1 on 12/01/2024 by Daniel Pedraza MD at [facility] N/A: Sternum [employer] 115.104.0 6 / / [employer] Screw Bone Slf Drl Full Thread Locking 3.5x16mm Ti 100.035.16 - [id number] Implanted:Qty: 6 on 12/01/2024 by Daniel Pedraza MD at [facility] N/A: Sternum [employer] 100.035.1 6 / / [employer] Screw Bone Slf Drl Full Thread Locking 3.5x18mm Ti 100.035.18 - [id number] Implanted:Qty: 6 on 12/01/2024 by Daniel Pedraza MD at [facility] N/A: Sternum [employer] 100.035.1 8 / / [employer] Screw Bone Slf Drl Full Thread Locking 3.5x20mm Ti 100.035.20 - [id number] Implanted:Qty: 6 on 12/01/2024 by Daniel Pedraza MD at [facility] N/A: Sternum [employer] 100.035.2 0 / / Procedures Procedure Name Priority Date/Time Associated Diagnosis Comments XR CHEST PA LATERAL 2 VIEWS Schedule Routine, Read Routine (OP Routine) 01/16/2025 10:01 AM CDT S/P AVR (aortic valve replacement) TRANSTHORACIC ECHO (TTE) COMPLETE W DOPPLER/CF W CONTRAST Routine 01/16/2025 8:52 AM CDT S/P AVR (aortic valve replacement) XR CHEST PA LATERAL 2 VIEWS IP Routine 12/05/2024 10:18 AM CDT EGFR Routine 12/05/2024 5:54 AM CDT DIFFERENTIAL AUTO Routine 12/05/2024 5:5 4 AM CDT CBC WITH AUTO DIFFERENTIAL Routine 12/05/2024 5:54 AM CDT PHOSPHORUS Routine 12/05/2024 5:54 AM CDT MAGNESIUM Routine 12/05/2024 5:54 AM CDT BASIC METABOLIC PANEL Routine 12/05/2024 5:54 AM CDT TYPE AND SCREEN Timed 12/04/2024 12:09 PM CDT POCT GLUCOSE DEVICE Routine 12/04/2024 1 2:08 PM CDT POCT GLUCOSE DEVICE Routine 12/04/2024 8 :04 AM CDT INFECTION PREVENTION LYNDSEY AURIS PCR, SURVEILLANCE Routine 12/04/2024 8:02 AM CDT XR CHEST 1 VIEW ED Urgent/IP Urgent 12/04/2024 5:38 AM CDT EGFR Routine 12/04/2024 12:44 AM CDT DIFFERENTIAL AUTO Routine 12/04/2024 12: 44 AM CDT CBC WITH AUTO DIFFERENTIAL Routine 12/04/2024 12:44 AM CDT PHOSPHORUS Routine 12/04/2024 12:44 AM CDT MAGNESIUM Routine 12/04/2024 12:44 AM CDT BASIC METABOLIC PANEL Routine 12/04/2024 12:44 AM CDT POCT GLUCOSE DEVICE Routine 12/03/2024 7 :59 PM CDT POCT GLUCOSE DEVICE Routine 12/03/2024 5 :27 PM CDT XR CHEST 1 VIEW ED Urgent/IP Urgent 12/03/2024 5:20 PM CDT POTASSIUM, WHOLE BLOOD Routine 12/03/2024 2:55 PM CDT APTT STAT 12/03/2024 2:54 PM CDT PROTIME-INR STAT 12/03/2024 2:54 PM CDT POCT GLUCOSE DEVICE Routine 12/03/2024 1 2:17 PM CDT POCT GLUCOSE DEVICE Routine 12/03/2024 8 :01 AM CDT XR CHEST 1 VIEW ED Urgent/IP Urgent 12/02/2024 11:11 PM CDT EGFR Timed 12/02/2024 8:04 PM CDT BASIC METABOLIC PANEL Timed 12/02/2024 8:04 PM CDT CBC WITHOUT DIFFERENTIAL Timed 12/02/2024 8:04 PM CDT POCT GLUCOSE DEVICE Routine 12/02/2024 8 :03 PM CDT CRITICAL CARE Routine 12/02/2024 5:55 PM CDT Aortic stenosis due to bicuspid aortic valve POCT GLUCOSE DEVICE Routine 12/02/2024 5 :35 PM CDT POCT GLUCOSE DEVICE Routine 12/02/2024 1 1:19 AM CDT POCT GLUCOSE DEVICE Routine 12/02/2024 8 :42 AM CDT EGFR Routine 12/01/2024 11:52 PM CDT DIFFERENTIAL AUTO Routine 12/01/2024 11: 52 PM CDT LACTATE Routine 12/01/2024 11:52 PM CDT PROTIME-INR Routine 12/01/2024 11:52 PM CDT CALCIUM, IONIZED Routine 12/01/2024 11:5 2 PM CDT CBC WITH AUTO DIFFERENTIAL Routine 12/01/2024 11:52 PM CDT APTT Routine 12/01/2024 11:52 PM CDT PHOSPHORUS Routine 12/01/2024 11:52 PM CDT MAGNESIUM Routine 12/01/2024 11:52 PM CDT POTASSIUM, WHOLE BLOOD Routine 12/01/2024 11:52 PM CDT BASIC METABOLIC PANEL Routine 12/01/2024 11:52 PM CDT POCT GLUCOSE DEVICE Routine 12/01/2024 1 0:08 PM CDT MS AN PROCEDURE PLACEHOLDER Routine 12/01/2024 8:40 PM CDT XR CHEST 1 VIEW IP Routine 12/01/2024 8:31 PM CDT POCT GLUCOSE DEVICE Routine 12/01/2024 7 :49 PM CDT INFECTION PREVENTION LYNDSEY AURIS PCR, SURVEILLANCE Routine 12/01/2024 6:50 PM CDT POCT GLUCOSE DEVICE Routine 12/01/2024 5 :38 PM CDT POCT GLUCOSE DEVICE Routine 12/01/2024 4 :02 PM CDT XR CHEST 1 VIEW ED Urgent/IP Urgent 12/01/2024 2:16 PM CDT EXTUBATION Routine 12/01/2024 2:02 PM CDT POCT GLUCOSE DEVICE Routine 12/01/2024 1 :59 PM CDT CRITICAL CARE Routine 12/01/2024 1:25 PM CDT Postoperative pain POC BLOOD GAS AND CHEMISTRIES, ARTERIAL Routine 12/01/2024 12:53 PM CDT LIPID PANEL STAT 12/01/2024 12:53 PM CDT EGFR STAT 12/01/2024 12:53 PM CDT APTT STAT 12/01/2024 12:53 PM CDT PROTIME-INR STAT 12/01/2024 12:53 PM CDT CBC WITHOUT DIFFERENTIAL STAT 12/01/2024 12:53 PM CDT MAGNESIUM STAT 12/01/2024 12:53 PM CDT BASIC METABOLIC PANEL STAT 12/01/2024 12:53 PM CDT CV HYBRID ROOM (DEFAULT ORDERABLE) Routine 12/01/2024 12:30 PM CDT Nonrheumatic aortic valve stenosis POC BLOOD GAS AND CHEMISTRIES, ARTERIAL Routine 12/01/2024 11:46 AM CDT POCT HEPARIN/ACT CPB Routine 12/01/2024 11:34 AM CDT POCT PROTHROMBIN TIME Routine 12/01/2024 11:33 AM CDT POCT PARTIAL THROMBOPLASTIN TIME (PTT) Routine 12/01/2024 11:33 AM CDT POCT PLATELET COUNT AND HEMATOCRIT Routine 12/01/2024 11:29 AM CDT POCT HEPARIN/ACT CPB Routine 12/01/2024 10:23 AM CDT POC BLOOD GAS AND CHEMISTRIES, ARTERIAL Routine 12/01/2024 10:19 AM CDT POCT HEPARIN/ACT CPB Routine 12/01/2024 9:49 AM CDT POC BLOOD GAS AND CHEMISTRIES, ARTERIAL Routine 12/01/2024 9:46 AM CDT SURGICAL PATHOLOGY Routine 12/01/2024 9: 40 AM CDT Nonrheumatic aortic valve stenosis POCT HEPARIN/ACT CPB Routine 12/01/2024 9:30 AM CDT POC BLOOD GAS AND CHEMISTRIES, ARTERIAL Routine 12/01/2024 9:27 AM CDT TYPE AND SCREEN STAT 12/01/2024 9:18 AM CDT ANESTHESIA CENTRAL VENOUS LINE PLACEMENT Routine 12/01/2024 8:52 AM CDT ANESTHESIA CENTRAL VENOUS LINE PLACEMENT Routine 12/01/2024 8:51 AM CDT ANESTHESIA INTUBATION Routine 12/01/2024 8:51 AM CDT ANTIBODY IDENTIFICATION Routine 12/01/2024 8:47 AM CDT POCT HEPARIN DOSE RESPONSE, CPB Routine 12/01/2024 8:35 AM CDT POC BLOOD GAS AND CHEMISTRIES, ARTERIAL Routine 12/01/2024 8:32 AM CDT CLOSURE STERNAL - WITH PLATES 12/01/2024 6:56 AM CDT Nonrheumatic aortic valve stenosis REPLACEMENT AORTIC ROOT. 12/01/2024 6:56 AM CDT Nonrheumatic aortic valve stenosis TYPE AND SCREEN Timed 12/01/2024 6:53 AM CDT ANESTHESIA ARTERIAL LINE PLACEMENT Routine 12/01/2024 6:49 AM CDT PREPARE RBC Timed 12/01/2024 5:46 AM CDT JHON ADD-ON FOR OR Routine 12/01/2024 5:3 3 AM CDT from Last 3 Months Results * XR Chest Pa Lateral 2 Views (01/16/2025 10:01 AM CDT) Anatomical Region Laterality Modality Body, Chest N/A Computed Radiogr aphy 01/16/2025 11:1 6 AM CDT Impressions 01/16/2025 12:30 PM CDT The current study is compared with the prior radiograph dated 12/05/2024. Unchanged alignment of sternotomy plates. Aortic valve replacement is noted. Minimal left basilar atelectasis. No focal consolidation, pleural effusion, or pneumothorax. Unchanged cardiomediastinal silhouette. Dictated by: Felix Montelongo MD The radiology attending physician has personally reviewed this study, and had reviewed and/or edited this written report and agrees with it. Electronically signed by: Dani Barrientos M.D. Narrative 01/16/2025 12:30 PM CDT EXAMINATION: 2 view chest radiograph Procedure Note Dani Barrientos MD - 01/16/2025 EXAMINATION: 2 view chest radiograph IMPRESSION: The current study is compared with the prior radiograph dated 12/05/2024. Unchanged alignment of sternotomy plates. Aortic valve replacement is noted. Minimal left basilar atelectasis. No focal consolidation, pleural effusion, or pneumothorax. Unchanged cardiomediastinal silhouette. Dictated by: Felix Montelongo MD The radiology attending physician has personally reviewed this study, and had reviewed and/or edited this written report and agrees with it. Electronically signed by: Dani Barrientos M.D. us Daniel Pedraza MD IMG XR PROCEDURES Fi nal Result * TRANSTHORACIC ECHO (TTE) COMPLETE W DOPPLER/CF W CONTRAST (01/16/2025 8:52 AM CDT) EF Mod BP 64 % CONS SCIMAGE Anatomical Region Laterality Modality Ultrasound 01/16/2025 8:11 AM CDT Narrative 01/23/2025 9:19 AM CDT [facility] Cardiac Diagnostic Lab [address], [address] [place] [address] Transthoracic Echocardiographic Report Patient Name: IKE RAPHAEL M : 1955 (69y 7m) Sex: M Study Date: 01/16/2025 08:11:15 AM Ht(Inch): 70 Wt(Lb): 319.01 BSA: 2.55 Cop Breaker: Debby Cruz RDCS Location: [facility] Order Provider: DANIEL PEDRAZA Heart Rate: 65 BMI: 45.77 BP: 172 / 82 Ref Provider: DANIEL PEDRAZA PROCEDURES: Echocardiographic Report: Transthoracic complete echo with [...] 0.8 ml Optison Administered, (2.2 ml wasted). INDICATIONS: Z95.2 Presence of prosthetic heart valve. CONCLUSIONS: 1. Normal left ventricular size based on volume index. Concentric LV hypertrophy. Normal left ventricular systolic function. The Ejection Fraction (Perla's) is measured at 64 %. Grade I diastolic dysfunction (normal LA pressure). The average global longitudinal strain is abnormal. 2. Normal right ventricular size. Normal right ventricular systolic function. 3. No aortic regurgitation. The mean transaortic gradient is 5 mmHg. A bioprosthetic valve is present in the aortic position. 4. Normal pericardium without pericardial effusion. 5. Normal aortic root size when indexed. 6. IVC not visualized due to poor acoustic windows. 7. Unable to determine PASP due to inadequate TR jet. ATTESTATION: I have personally reviewed and interpreted this study without fellow or resident. DISCLAIMER: The study images and the final report will be retained in the patient chart by the Echo Laboratory for the legally required time period. This chart constitutes the legal record of any testing performed. FINDINGS: Left Ventricle: Normal left ventricular size based on volume index. Concentric LV hypertrophy. Normal left ventricular systolic function. The Ejection Fraction (Perla's) is measured at 64 %. Grade I diastolic dysfunction (normal LA pressure). The average global longitudinal strain is abnormal. The LV global strain is: -8.0 %. Right Ventricle: Normal right ventricular size. Normal right ventricular systolic function. Left Atrium: The left atrium is normal in size. Right Atrium: The right atrium is normal in size. Mitral Valve: Normal mitral valve structure. No mitral regurgitation. No stenosis present. The mitral valve area by pressure half-time is 2.5 cm2. The mean transmitral gradient is: 1 mmHg. Aortic Valve: No aortic regurgitation. No aortic valve stenosis. The mean transaortic gradient is 5 mmHg. The aortic valve area by the continuity equation (using VTI) is 2.69 cm2. Aortic valve dimensionless index is 0.54. A bioprosthetic valve is present in the aortic position. Tricuspid Valve: Normal tricuspid valve structure. No tricuspid regurgitation. No tricuspid valve stenosis. Pulmonic Valve: Normal pulmonic valve structure. No pulmonic regurgitation. No pulmonic valve stenosis present. Pericardium: Normal pericardium without pericardial effusion. Aorta: Normal aortic root size when indexed. IVC: IVC not visualized due to poor acoustic windows. PASP: Unable to determine PASP due to inadequate TR jet. MEASUREMENTS: 2D/MM Value Range Doppler Value Range LVIDd 2D 5.10 cm [ 4.20 - 5.80 ] AV Peak Harjinder 1.5 m/s [ 1.0 - 1.7 ] LVIDs 2D 3.70 cm [ 2.50 - 4.00 ] AV Peak PG 9.00 mmHg IVSd 2D 1.63 cm [ 0.60 - 1.00 ] AV Mean PG 5 mmHg LVPWd 2D 1.22 cm [ 0.60 - 1.00 ] AV VTI 30.1 cm LV Thickness Ratio 1.3 LVOT Peak Harjinder 0.8 m/s [ 0.7 - 1.1 ] LV FS 2D 27.35 % [ 25.00 - 43.00 ] LVOT Peak PG 2.56 mmHg LV Mass 2D 312.53 g LVOT Mean PG 2 mmHg LV Mass Index 2D 122.78 g/m2 LVOT VTI 16.4 cm RWT 0.48 LVOT Diam 2.51 cm EDV Mod BP 156.30 ml [ 62.00 - 150.00 ] HONEY VTI 2.69 cm2 LV EDV Index 61.40 ml/m2 LVOT/AV VTI 0.54 - Dimensionless index (DVI) ESV Mod BP 56.13 ml [ 21.00 - 61.00 ] MV E Peak Harjinder 0.6 m/s [ 0.6 - 1.3 ] EF Mod BP 64 % [ 52 - 72 ] MV A Peak Harjinder 0.6 m/s [ 1.0 - 1.2 ] LV GLS -8.0 % [ -25.0 - -18.0 ] MV E/A 1.0 ratio [ 0.8 - 1.5 ] LA Length 4C 5.58 cm MV Peak Harjinder 0.9 m/s LA Length 2C 5.17 cm MV Peak PG 3.24 mmHg LA Volume BP 69.11 ml MV Mean PG 1 mmHg LA Volume Index 27.15 ml/m2 [ 16.00 - 34.00 ] MV VTI 31.1 cm RV Base Dimen 2D 4.1 cm [ 2.5 - 4.2 ] MV PHT 87.42 msec [ 20.00 - 100.00 ] TAPSE 1.35 cm [ 1.71 - 5.00 ] MVA PHT 2.52 cm2 RA Volume 64.07 ml MV Decel Time 244.56 msec [ 104.00 - 258.00 ] RA Volume Index 25.17 ml/m2 Med E` Harjinder 5.4 cm/sec [ 8.0 - 25.0 ] AoR Diam 2D 4.20 cm [ 3.10 - 3.70 ] Lat E` Harjinder 7.7 cm/sec [ 10.0 - 25.0 ] Ao Root Index 1.65 cm/m2 [ 1.00 - 2.00 ] Average E/E` 9.16 Asc Ao Diam 2D 3.92 cm RV S` 5.69 cm/sec Asc Ao Index 1.54 cm/m2 PV Peak Harjinder 1.2 m/s [ 0.4 - 0.8 ] PV Peak PG 5.76 mmHg Electronically Signed By: Marty Norman MD 01/23/2025 9:18:53 AM CDT Procedure Note Marty Norman MD - 01/23/2025 [facility] Cardiac Diagnostic Lab [address] , [address] [place] [address] Transthoracic Echocardiographic Report Patient Name: IKE RAPHAEL M : 1955 (69y 7m) Sex: M Study Date: 01/16/2025 08:11:15 AM Ht(Inch): 70 Wt(Lb): 319.01 BSA: 2.55 Cop Breaker: Debby Cruz RDCS Location: I Order Provider:DANIEL PEDRAZA Heart Rate: 65 BMI: 45.77 BP: 172 / 82 Ref Provider: DANIEL PEDRAZA PROCEDURES: Echocardiographic Report: Transthoracic complete echo with [...] and. 0.8 ml Optison Administered, (2.2ml wasted). INDICATIONS: Z95.2 Presence of prosthetic heart valve. CONCLUSIONS: 1. Normal left ventricular size based on volume index. Concentric LVhypertrophy. Normal left ventricular systolic function. The Ejection Fraction (Perla's) ismeasured at 64 %. Grade I diastolic dysfunction (normal LA pressure). The average globallongitudinal strain is abnormal. 2. Normal right ventricular size. Normal right ventricular systolicfunction. 3. No aortic regurgitation. The mean transaortic gradient is 5 mmHg. Abioprosthetic valve is present in the aortic position. 4. Normal pericardium without pericardial effusion. 5. Normal aortic root size when indexed. 6. IVC not visualized due to poor acoustic windows. 7. Unable to determine PASP due to inadequate TR jet. ATTESTATION: I have personally reviewed and interpreted this study without fellow orresident. DISCLAIMER: The study images and the final report will be retained in the patientchart by the Echo Laboratory for the legally required time period. This chart constitutesthe legal record of any testing performed. FINDINGS: Left Ventricle: Normal left ventricular size based on volume index.Concentric LV hypertrophy. Normal left ventricular systolic function. The EjectionFraction (Perla's) is measured at 64 %. Grade I diastolic dysfunction (normal LA pressure).The average global longitudinal strain is abnormal. The LV global strain is: -8.0 %. Right Ventricle: Normal right ventricular size. Normal right ventricularsystolic function. Left Atrium: The left atrium is normal in size. Right Atrium: The right atrium is normal in size. Mitral Valve: Normal mitral valve structure. No mitral regurgitation. Nostenosis present. The mitral valve area by pressure half-time is 2.5 cm2. The meantransmitral gradient is: 1 mmHg. Aortic Valve: No aortic regurgitation. No aortic valve stenosis. The meantransaortic gradient is 5 mmHg. The aortic valve area by the continuity equation(using VTI) is 2.69 cm2. Aortic valve dimensionless index is 0.54. A bioprosthetic valve ispresent in the aortic position. Tricuspid Valve: Normal tricuspid valve structure. No tricuspidregurgitation. No tricuspid valve stenosis. Pulmonic Valve: Normal pulmonic valve structure. No pulmonicregurgitation. No pulmonic valve stenosis present. Pericardium: Normal pericardium without pericardial effusion. Aorta: Normal aortic root size when indexed. IVC: IVC not visualized due to poor acoustic windows. PASP: Unable to determine PASP due to inadequate TR jet. MEASUREMENTS: 2D/MM Value Range DopplerValue Range LVIDd 2D 5.10 cm [ 4.20 - 5.80 ] AV Peak Vel1.5 m/s [ 1.0 - 1.7 ] LVIDs 2D 3.70 cm [ 2.50 - 4.00 ] AV Peak PG9.00 mmHg IVSd 2D 1.63 cm [ 0.60 - 1.00 ] AV Mean PG5 mmHg LVPWd 2D 1.22 cm [ 0.60 - 1.00 ] AV VTI30.1 cm LV Thickness Ratio 1.3 LVOT Peak Vel0.8 m/s [ 0.7 - 1.1 ] LV FS 2D 27.35 % [ 25.00 - 43.00 ] LVOT Peak PG2.56 mmHg LV Mass 2D 312.53 g LVOT Mean PG2 mmHg LV Mass Index 2D 122.78 g/m2 LVOT VTI16.4 cm RWT 0.48 LVOT Diam2.51 cm EDV Mod BP 156.30 ml [ 62.00 - 150.00 ] HONEY VTI2.69 cm2 LV EDV Index 61.40 ml/m2 LVOT/AV VTI0.54 - Dimensionless index (DVI) ESV Mod BP 56.13 ml [ 21.00 - 61.00 ] MV E Peak Vel0.6 m/s [ 0.6 - 1.3 ] EF Mod BP 64 % [ 52 - 72 ] MV A Peak Vel0.6 m/s [ 1.0 - 1.2 ] LV GLS -8.0 % [ -25.0 - -18.0 ] MV E/A1.0 ratio [ 0.8 - 1.5 ] LA Length 4C 5.58 cm MV Peak Vel0.9 m/s LA Length 2C 5.17 cm MV Peak PG3.24 mmHg LA Volume BP 69.11 ml MV Mean PG1 mmHg LA Volume Index 27.15 ml/m2 [ 16.00 - 34.00 ] MV VTI31.1 cm RV Base Dimen 2D 4.1 cm [ 2.5 - 4.2 ] MV PHT87.42 msec [ 20.00 - 100.00 ] TAPSE 1.35 cm [ 1.71 - 5.00 ] MVA PHT2.52 cm2 RA Volume 64.07 ml MV Decel Gpiz785.56 msec [ 104.00 - 258.00 ] RA Volume Index 25.17 ml/m2 Med E` Vel5.4 cm/sec [ 8.0 - 25.0 ] AoR Diam 2D 4.20 cm [ 3.10 - 3.70 ] Lat E` Vel7.7 cm/sec [ 10.0 - 25.0 ] Ao Root Index 1.65 cm/m2 [ 1.00 - 2.00 ] Average E/E`9.16 Asc Ao Diam 2D 3.92 cm RV S`5.69 cm/sec Asc Ao Index 1.54 cm/m2 PV Peak Vel1.2 m/s [ 0.4 - 0.8 ] PV Peak PG 5.76 mmHg Electronically Signed By: Marty Norman MD 01/23/2025 9:18:53 AM CDT us Daniel Pedraza MD CV ECHO PROCEDURES F inal Result * XR Chest Pa Lateral 2 Views (12/05/2024 10:18 AM CDT) Anatomical Region Laterality Modality Body, Chest N/A Computed Radiogr aphy 12/05/2024 11:1 9 AM CDT Impressions 12/05/2024 12:17 PM CDT The current study is compared with the prior radiograph dated 12/04/2024. Median sternotomy plates are present. Aortic valve replacement is present. Linear opacities in the bilateral lower lobes favored to represent atelectasis. Small left pleural effusion. No pleural effusion on the right. No pneumothorax. Cardiomediastinal silhouette is unchanged. Dictated by: Kenneth Dasilva M.D. The radiology attending physician has personally reviewed this study, and had reviewed and/or edited this written report and agrees with it. Electronically signed by: Ramsey Hernandez M.D. Narrative 12/05/2024 12:17 PM CDT EXAMINATION: 2 view chest radiograph Procedure Note Ramsey Hernandez MD - 12/05/2024 EXAMINATION: 2 view chest radiograph IMPRESSION: The current study is compared with the prior radiograph dated 12/04/2024. Median sternotomy plates are present. Aortic valve replacement is present. Linear opacities in the bilateral lower lobes favored to represent atelectasis. Small left pleural effusion. No pleural effusion on the right. No pneumothorax. Cardiomediastinal silhouette is unchanged. Dictated by: Kenneth Dasilva M.D. The radiology attending physician has personally reviewed this study, and had reviewed and/or edited this written report and agrees with it. Electronically signed by: Ramsey Hernandez M.D. Alina Guillory NP IMG XR PROCEDURES Final Res ult * eGFR (12/05/2024 5:54 AM CDT) eGFR >90 >=60 mL/min/1. 73 m2 [...] interpretive data was last reviewed 2021. Blood 12/05/2024 5:54 AM CDT 12/05/2024 6:46 AM CDT us Daniel Pedraza MD LAB BLOOD ORDERABLES Final Result [facility] [address] [place] [address] * (ABNORMAL) Differential, auto (12/05/2024 5:54 AM CDT) Neutrophil abs 6.64(H) 1.50 - 6.50 K/cumm Imm gran abs 0.02 0.00 - 0.10 K/cumm [facility] Lymphocyte abs 1.02 0.80 - 3.30 K/cumm [facility] Monocyte abs 0.91(H) 0.20 - 0.80 K/cumm [facility] Eosinophil abs 0.31 0.00 - 0.50 K/cumm [facility] Basophil abs 0.04 0.00 - 0.10 K/cumm [facility] Neutrophil pct 74.3 % [facility] Comment: Interpretive Data Percent cell count reference ranges are not reported, since discordance with absolute values may lead to misinterpretation of CBC data. Current Interpretive Data was last revised on 2017. Imm gran pct 0.2 % [facility] Comment: Interpretive Data Percent cell count reference ranges are not reported, since discordance with absolute values may lead to misinterpretation of CBC data. Current Interpretive Data was last revised on 2017. Lymphocyte pct 11.4 % [facility] Comment: Interpretive Data Percent cell count reference ranges are not reported, since discordance with absolute values may lead to misinterpretation of CBC data. Current Interpretive Data was last revised on 2017. Monocyte pct 10.2 % [facility] Comment: Interpretive Data Percent cell count reference ranges are not reported, since discordance with absolute values may lead to misinterpretation of CBC data. Current Interpretive Data was last revised on 2017. Eosinophil pct 3.5 % [facility] Comment: Interpretive Data Percent cell count reference ranges are not reported, since discordance with absolute values may lead to misinterpretation of CBC data. Current Interpretive Data was last revised on 2017. Basophil pct 0.4 % [facility] Comment: Interpretive Data Percent cell count reference ranges are not reported, since discordance with absolute values may lead to misinterpretation of CBC data. Current Interpretive Data was last revised on 2017. Blood 12/05/2024 5:54 AM CDT 12/05/2024 6:47 AM CDT us Daniel Pedraza MD LAB BLOOD ORDERABLES Final Result [facility] [address] [place] [address] * (ABNORMAL) CBC with auto differential (12/05/2024 5:54 AM CDT) WBC 8.94 3.80 - 9.90 K/cumm Hgb 11.6(L) 13.0 - 17.5 g/dL [facility] Hct 34.0(L) 38.9 - 50.3 % [facility] Plt 223 150 - 400 K/cumm [facility] MPV 10.3 9.1 - 12.3 fL [facility] RBC 3.76(L) 4.30 - 5.80 M/cumm [facility] MCV 90.4 81.3 - 96.4 fL [facility] MCH 30.9 27.1 - 33.3 pg [facility] MCHC 34.1 32.3 - 35.7 g/dL [facility] RDW CV 13.4 11.1 - 14.9 % [facility] RDW SD 45.1 35.7 - 48.1 fL [facility] NRBC abs 0.00 0.00 - 0.01 K/cumm [facility] Blood 12/05/2024 5:54 AM CDT 12/05/2024 6:47 AM CDT Daniel Pedraza MD LAB BLOOD ORDERABLES Final Result Performing Organization Address [facility] Co de Phone Number [facility] [place] [address] * (ABNORMAL) Phosphorus (12/05/2024 5:54 AM CDT) [facility] Phosphorus, pl 2.0(L) 2.3 - 4.5 mg/dL Blood 12/05/2024 5:54 AM CDT 12/05/2024 6:46 AM CDT Daniel Pedraza MD LAB BLOOD ORDERABLES Final Result Performing Organization Address [facility] Co de Phone Number [facility] [place] [address] * Magnesium (12/05/2024 5:54 AM CDT) [facility] Magnesium 2.2 1.4 - 2.5 mg/dL Blood 12/05/2024 5:54 AM CDT 12/05/2024 6:46 AM CDT Daniel Pedraza MD LAB BLOOD ORDERABLES Final Result Performing Organization Address [facility] [place] [address] * Basic metabolic panel (12/05/2024 5:54 AM CDT) [facility] Sodium 142 135 - 145 mmol/L Potassium, pl 4.0 3.3 - 4.9 mmol/L [facility] Chloride 102 97 - 110 mmol/L [facility] CO2 32 22 - 32 mmol/L [facility] Anion gap 8 2 - 15 mmol/L [facility] BUN 25 6 - 25 mg/dL [facility] Creatinine 0.86 0.80 - 1.30 mg/dL [facility] Glucose 108 70 - 199 mg/dL [facility] Comment: Interpretive Data Fasting glucose >/= 126 [...] interpretive data was last revised 2022. Calcium 8.8 8.5 - 10.3 mg/dL [facility] Blood 12/05/2024 5:54 AM CDT 12/05/2024 6:46 AM CDT Daniel Pedraza MD LAB BLOOD ORDERABLES Final Result Performing Organization Address City/[facility]/ZIP Co de Phone Number [facility] Department [place] [employer] [place] [address] * Type and screen (12/04/2024 12:09 PM CDT) Kristin, indirect Negative Comment:Patient has previous antibody history ABO Rh O Positive [facility] Blood 12/04/2024 12:0 9 PM CDT 12/04/2024 12:25 PM CDT Narrative [facility] - 12/04/2024 1:24 PM CDT Has the patient had Daratumumab or Isatuximab in the past 6 months?->Unknown Daniel Pedraza MD LAB BLOOD BANK TEST ORDERABLES Final Result [facility] Department [place] [place] [address] * POCT glucose (12/04/2024 12:08 PM CDT) Glucose, POC 98 70 - 199 mg/dL Blood 12/04/2024 12:0 8 PM CDT 12/04/2024 12:08 PM CDT Daniel Pedraza MD LAB POCT ORDERABLES - DEVICE Final Result Performing Organization Address City/[facility] Co de Phone Number [facility] [place] [address] * POCT glucose (12/04/2024 8:04 AM CDT) Glucose, POC 109 70 - 199 mg/dL Blood 12/04/2024 8:04 AM CDT 12/04/2024 8:04 AM CDT Result [facility] Daniel Pedraza MD LAB POCT ORDERABLES - DEVICE Final Result Performing Organization Address [facility] de Phone Number [facility] [place] [address] * Infection Prevention Lyndsey auris PCR, surveillance Axilla/Groin (12/04/2024 8:02 AM CDT) [facility] Lyndsey auris DNA Not Detected Not Detected [facility] Comment: Interpretive Data Testing performed by [facility] using the Jenny khloe [id number] Lyndsey auris assay. This assay detects DNA from Lyndsey auris using Real-Time PCR. This assay is laboratory developed and is not cleared by the [place] Food and Drug Administration. The performance characteristics have been verified by the [facility]. Axilla/Groin 12/04/2024 8:02 AM CDT 12/04/2024 8:19 AM CDT Result [facility] Enmanuel Morse MD LAB MICROBIOLOGY - GENERAL ORDER ROCIO Final Result Performing Organization Address City/[facility] Co de Phone Number [facility] [place] [address] [facility] * XR Chest 1 View (12/04/2024 5:38 AM CDT) Anatomical Region Laterality Modality Body, Chest N/A Computed Radiogr aphy 12/04/2024 10:2 9 AM CDT Impressions 12/04/2024 11:37 AM CDT First exam 12/03/2024. The current study is compared with the prior radiograph dated 12/02/2024. Aortic valve replacement is present. Interval removal of right internal jugular central venous catheter. Interval removal of mediastinal and pericardial drain. Median sternotomy plates are present. Unchanged small left pleural effusion with associated atelectasis that is slightly increased when compared to prior. Minimal right basilar atelectasis. No pleural effusion on the right. No pneumothorax. Cardiomediastinal silhouette is unchanged Second exam 12/04/2024 at 5:32 AM. Examination is unchanged. Dictated by: Kenneth Dasilva M.D. The radiology attending physician has personally reviewed this study, and had reviewed and/or edited this written report and agrees with it. Electronically signed by: Carolina Cruz M.D. Narrative 12/04/2024 11:37 AM CDT Examination: 2 portable chests Chest one view portable Chest one view portable Procedure Note Carolina Cruz MD - 12/04/2024 Examination: 2 portable chests Chest one view portable Chest one view portable IMPRESSION: First exam 12/03/2024. The current study is compared with the prior radiograph dated 12/02/2024. Aortic valve replacement is present. Interval removal of right internal jugular central venous catheter. Interval removal of mediastinal and pericardial drain. Median sternotomy plates are present. Unchanged small left pleural effusion with associated atelectasis that is slightly increased when compared to prior. Minimal right basilar atelectasis. No pleural effusion on the right. No pneumothorax. Cardiomediastinal silhouette is unchanged Second exam 12/04/2024 at 5:32 AM. Examination is unchanged. Dictated by: Kenneth Henlon, M.D. The radiology attending physician has personally reviewed this study, and had reviewed and/or edited this written report and agrees with it. Electronically signed by: Carolina Cruz M.D. Daniel Pedraza MD IMG XR PROCEDURES Fi nal Result * eGFR (12/04/2024 12:44 AM CDT) eGFR 69 >=60 mL/min/1. 73 m2 Comment: Interpretive Data [...] interpretive data was last reviewed 2021. Blood 12/04/2024 12:4 4 AM CDT 12/04/2024 12:58 AM CDT Daniel Pedraza MD LAB BLOOD ORDERABLES Final Result [facility] [address] Department [place] [address] * (ABNORMAL) Differential, auto (12/04/2024 12:44 AM CDT) Neutrophil abs 9.89(H) 1.50 - 6.50 K/cumm Imm gran abs 0.04 0.00 - 0.10 K/cumm [facility] Lymphocyte abs 1.28 0.80 - 3.30 K/cumm [facility] Monocyte abs 1.47(H) 0.20 - 0.80 K/cumm [facility] Eosinophil abs 0.35 0.00 - 0.50 K/cumm [facility] Basophil abs 0.02 0.00 - 0.10 K/cumm [facility] Neutrophil pct 75.7 % [facility] Comment: Interpretive Data Percent cell count reference ranges are not reported, since discordance with absolute values may lead to misinterpretation of CBC data. Current Interpretive Data was last revised on 2017. Imm gran pct 0.3 % [facility] Comment: Interpretive Data Percent cell count reference ranges are not reported, since discordance with absolute values may lead to misinterpretation of CBC data. Current Interpretive Data was last revised on 2017. Lymphocyte pct 9.8 % [facility] Comment: Interpretive Data Percent cell count reference ranges are not reported, since discordance with absolute values may lead to misinterpretation of CBC data. Current Interpretive Data was last revised on 2017. Monocyte pct 11.3 % [facility] Comment: Interpretive Data Percent cell count reference ranges are not reported, since discordance with absolute values may lead to misinterpretation of CBC data. Current Interpretive Data was last revised on 2017. Eosinophil pct 2.7 % [facility] Comment: Interpretive Data Percent cell count reference ranges are not reported, since discordance with absolute values may lead to misinterpretation of CBC data. Current Interpretive Data was last revised on 2017. Basophil pct 0.2 % [facility] Comment: Interpretive Data Percent cell count reference ranges are not reported, since discordance with absolute values may lead to misinterpretation of CBC data. Current Interpretive Data was last revised on 2017. Blood 12/04/2024 12:4 4 AM CDT 12/04/2024 12:58 AM CDT us Daniel Pedraza MD LAB BLOOD ORDERABLES Final Result [facility] [address] [place] [address] * (ABNORMAL) CBC with auto differential (12/04/2024 12:44 AM CDT) Pathologist [facility] WBC 13.05(H) 3.80 - 9.90 K/cumm Hgb 12.4(L) 13.0 - 17.5 g/dL [facility] Hct 37.6(L) 38.9 - 50.3 % [facility] Plt 197 150 - 400 K/cumm [facility] MPV 10.4 9.1 - 12.3 fL [facility] RBC 4.08(L) 4.30 - 5.80 M/cumm [facility] MCV 92.2 81.3 - 96.4 fL [facility] MCH 30.4 27.1 - 33.3 pg [facility] MCHC 33.0 32.3 - 35.7 g/dL [facility] RDW CV 13.7 11.1 - 14.9 % [facility] RDW SD 46.4 35.7 - 48.1 fL [facility] NRBC abs 0.00 0.00 - 0.01 K/cumm [facility] Blood 12/04/2024 12:4 4 AM CDT 12/04/2024 12:58 AM CDT Daniel Pedraza MD LAB BLOOD ORDERABLES Final Result Performing Organization Address [facility] de Phone Number [facility] [place] [employer] [place] [address] * Phosphorus (12/04/2024 12:44 AM CDT) Pathologist [facility] Phosphorus, pl 2.7 2.3 - 4.5 mg/dL Blood 12/04/2024 12:4 4 AM CDT 12/04/2024 12:58 AM CDT Daniel Pedraza MD LAB BLOOD ORDERABLES Final Result Performing Organization Address [facility] Co de Phone Number [facility] [place] [address] * (ABNORMAL) Magnesium (12/04/2024 12:44 AM CDT) Magnesium 2.6(H) 1.4 - 2.5 mg/dL Blood 12/04/2024 12:4 4 AM CDT 12/04/2024 12:58 AM CDT Daniel Pedraza MD LAB BLOOD ORDERABLES Final Result [facility] [address] [place] [address] * (ABNORMAL) Basic metabolic panel (12/04/2024 12:44 AM CDT) Pathologist [facility] Sodium 137 135 - 145 mmol/L Potassium, pl 4.6 3.3 - 4.9 mmol/L [facility] Comment:Hemolyzed; Potassium value may be falsely elevated by as much as 0.3-0.5 mmol/L. Suggest redraw and reanalysis. Chloride 98 97 - 110 mmol/L [facility] CO2 31 22 - 32 mmol/L [facility] Anion gap 8 2 - 15 mmol/L [facility] BUN 35(H) 6 - 25 mg/dL [facility] Creatinine 1.14 0.80 - 1.30 mg/dL [facility] Glucose 106 70 - 199 mg/dL [facility] Comment: Interpretive Data Fasting glucose >/= 126 [...] classification and Diagnosis of Diabetes Diabetes Care 202; 46: S19-S40. Current interpretive data was last revised 2022. Calcium 9.3 8.5 - 10.3 mg/dL [facility] Blood 12/04/2024 12:4 4 AM CDT 12/04/2024 12:58 AM CDT Daniel Pedraza MD LAB BLOOD ORDERABLES Final Result Performing Organization Address [facility] Co de Phone Number [facility] [place] [address] * POCT glucose (12/03/2024 7:59 PM CDT) Glucose, POC 168 70 - 199 mg/dL Blood 12/03/2024 7:59 PM CDT 12/03/2024 7:59 PM CDT Daniel Pedraza MD LAB POCT ORDERABLES - DEVICE Final Result Performing Organization Address [facility] Co de Phone Number [facility] [place] [address] * POCT glucose (12/03/2024 5:27 PM CDT) Glucose, POC 110 70 - 199 mg/dL Blood 12/03/2024 5:27 PM CDT 12/03/2024 5:27 PM CDT Daniel Pedraza MD LAB POCT ORDERABLES - DEVICE Final Result Performing Organization Address [facility] Co de Phone Number [facility] [place] [employer] [place] [address] * XR Chest 1 View (12/03/2024 5:20 PM CDT) Anatomical Region Laterality Modality Body, Chest N/A Digital Radiogra phy 12/04/2024 10:2 9 AM CDT Impressions 12/04/2024 11:37 AM CDT First exam 12/03/2024. The current study is compared with the prior radiograph dated 12/02/2024. Aortic valve replacement is present. Interval removal of right internal jugular central venous catheter. Interval removal of mediastinal and pericardial drain. Median sternotomy plates are present. Unchanged small left pleural effusion with associated atelectasis that is slightly increased when compared to prior. Minimal right basilar atelectasis. No pleural effusion on the right. No pneumothorax. Cardiomediastinal silhouette is unchanged Second exam 12/04/2024 at 5:32 AM. Examination is unchanged. Dictated by: Kenneth Dasilva M.D. The radiology attending physician has personally reviewed this study, and had reviewed and/or edited this written report and agrees with it. Electronically signed by: Carolina Cruz M.D. Narrative 12/04/2024 11:37 AM CDT Examination: 2 portable chests Chest one view portable Chest one view portable Procedure Note Carolina Cruz MD - 12/04/2024 Examination: 2 portable chests Chest one view portable Chest one view portable IMPRESSION: First exam 12/03/2024. The current study is compared with the prior radiograph dated 12/02/2024. Aortic valve replacement is present. Interval removal of right internal jugular central venous catheter. Interval removal of mediastinal and pericardial drain. Median sternotomy plates are present. Unchanged small left pleural effusion with associated atelectasis that is slightly increased when compared to prior. Minimal right basilar atelectasis. No pleural effusion on the right. No pneumothorax. Cardiomediastinal silhouette is unchanged Second exam 12/04/2024 at 5:32 AM. Examination is unchanged. Dictated by: Kenneth Dasilva M.D. The radiology attending physician has personally reviewed this study, and had reviewed and/or edited this written report and agrees with it. Electronically signed by: Carolina Cruz M.D. Daniel Pedraza MD IMG XR PROCEDURES Fi nal Result * Potassium, whole blood (12/03/2024 2:55 PM CDT) Potassium, bld 4.4 3.3 - 4.9 mmol/L Blood 12/03/2024 2:55 PM CDT 12/03/2024 3:20 PM CDT Pradip Byrne MD LAB BLOOD ORDERABLES Final Result Performing Organization Address [facility] Co de Phone Number [facility] [place] [employer] [place] [address] * aPTT (12/03/2024 2:54 PM CDT) aPTT 32 26 - 38 sec Comment: Interpretive Data Heparin therapeutic range: 66.0 - 100.0 seconds. Range based on correlation with therapeutic heparin activity range of 0.3 - 0.7 Units/mL. Current interpretive data was last revised on 2023. Blood 12/03/2024 2:54 PM CDT 12/03/2024 3:29 PM CDT Daniel Pedraza MD LAB BLOOD ORDERABLES Final Result Performing Organization Address [facility] Co de Phone Number [facility] [place] [place] [address] * Protime-INR (12/03/2024 2:54 PM CDT) PT 12.8 10.2 - 13.5 sec INR 1.14 0.90 - 1.20 [facility] Comment: Interpretive data Oral anticoagulant therapeutic ranges: Venous thromboembolism prophylaxis or treatment: 2.0-3.0 CARDIOLOGY Standard range: 2.0-3.0 High-intensity range: 2.5-3.5 Refer to indication-specific guidelines for appropriate target ranges for prosthetic heart valve replacement. Current interpretive data was last revised on 2019. Blood 12/03/2024 2:54 PM CDT 12/03/2024 3:29 PM CDT Daniel Pedraza MD LAB BLOOD ORDERABLES Final Result Performing Organization Address City/[facility] Co de Phone Number [facility] [place] [employer] [place] [address] * POCT glucose (12/03/2024 12:17 PM CDT) Glucose, POC 111 70 - 199 mg/dL Blood 12/03/2024 12:1 7 PM CDT 12/03/2024 12:17 PM CDT Daniel Pedraza MD LAB POCT ORDERABLES - DEVICE Final Result Performing Organization Address [facility] de Phone Number [facility] [place] [address] * POCT glucose (12/03/2024 8:01 AM CDT) Glucose, POC 114 70 - 199 mg/dL Blood 12/03/2024 8:01 AM CDT 12/03/2024 8:01 AM CDT Daniel Pedraza MD LAB POCT ORDERABLES - DEVICE Final Result Performing Organization Address [facility] de Phone Number [facility] [place] [address] * XR Chest 1 View (12/02/2024 11:11 PM CDT) Anatomical Region Laterality Modality Body, Chest N/A Computed Radiogr aphy 12/03/2024 6:31 AM CDT Impressions 12/03/2024 6:31 AM CDT Comparison is made to radiograph of 12/01/2024 at 8:29 PM Anteroposterior portable upright chest radiograph demonstrates unchanged right internal jugular central venous catheter with its tip projecting superior vena cava. Sternal plates and screws, mediastinal/pericardial drain, and prosthetic cardiac valve noted. The lungs wires are low with patchy atelectasis in bilateral lower and mid zones, nonspecific change since the prior study. No pulmonary edema or pneumothorax. Stable small left pleural effusion. Electronically signed by: Nasrin Michael M.D. Narrative 12/03/2024 6:31 AM CDT EXAMINATION: 1 view chest radiograph Procedure Note Nasrin Michael MD - 12/03/2024 EXAMINATION: 1 view chest radiograph IMPRESSION: Comparison is made to radiograph of 12/01/2024 at 8:29 PM Anteroposterior portable upright chest radiograph demonstrates unchanged right internal jugular central venous catheter with its tip projecting superior vena cava. Sternal plates and screws, mediastinal/pericardial drain, and prosthetic cardiac valve noted. The lungs wires are low with patchy atelectasis in bilateral lower and mid zones, nonspecific change since the prior study. No pulmonary edema or pneumothorax. Stable small left pleural effusion. Electronically signed by: Nasrin Michael M.D. us Daniel Pedraza MD IMG XR PROCEDURES Fi nal Result * eGFR (12/02/2024 8:04 PM CDT) eGFR 68 >=60 mL/min/1. 73 m2 Comment: Interpretive Data [...] Inclusion of Race in Diagnosing Kidney Disease, LINDASKalee 2020). The CKD-EPI equation should not be used for patients with unstable renal function and has not been validated in children and those over 70. Current interpretive data was last reviewed 2021. Blood 12/02/2024 8:04 PM CDT 12/02/2024 8:51 PM CDT us Daniel Pedraza MD LAB BLOOD ORDERABLES Final Result [facility] [address] [place] [address] * (ABNORMAL) CBC without differential (12/02/2024 8:04 PM CDT) [facility] WBC 14.19(H) 3.80 - 9.90 K/cumm Hgb 12.5(L) 13.0 - 17.5 g/dL [facility] Hct 36.9(L) 38.9 - 50.3 % [facility] Plt 179 150 - 400 K/cumm [facility] MPV 10.3 9.1 - 12.3 fL [facility] RBC 4.03(L) 4.30 - 5.80 M/cumm [facility] MCV 91.6 81.3 - 96.4 fL [facility] MCH 31.0 27.1 - 33.3 pg [facility] MCHC 33.9 32.3 - 35.7 g/dL [facility] RDW CV 13.4 11.1 - 14.9 % [facility] RDW SD 46.1 35.7 - 48.1 fL [facility] NRBC abs 0.00 0.00 - 0.01 K/cumm [facility] Blood 12/02/2024 8:04 PM CDT 12/02/2024 8:50 PM CDT us Daniel Pedraza MD LAB BLOOD ORDERABLES Final Result [facility] [address] [place] [address] * (ABNORMAL) Basic metabolic panel (12/02/2024 8:04 PM CDT) [facility] Sodium 140 135 - 145 mmol/L Potassium, pl 4.4 3.3 - 4.9 mmol/L [facility] Chloride 101 97 - 110 mmol/L [facility] CO2 31 22 - 32 mmol/L [facility] Anion gap 8 2 - 15 mmol/L [facility] BUN 26(H) 6 - 25 mg/dL [facility] Creatinine 1.16 0.80 - 1.30 mg/dL [facility] Glucose 128 70 - 199 mg/dL [facility] Comment: Interpretive Data Fasting glucose >/= 126 [...] interpretive data was last revised 2022. Calcium 9.0 8.5 - 10.3 mg/dL [facility] Blood 12/02/2024 8:04 PM CDT 12/02/2024 8:51 PM CDT us Daniel Pedraza MD LAB BLOOD ORDERABLES Final Result Performing Organization Address [facility] Co de Phone Number [facility] [place] [address] * POCT glucose (12/02/2024 8:03 PM CDT) [facility] Signature Glucose, POC 132 70 - 199 mg/dL Blood 12/02/2024 8:03 PM CDT 12/02/2024 8:03 PM CDT Daniel Pedraza MD LAB POCT ORDERABLES - DEVICE Final Result Performing Organization Address City/[facility] Co de Phone Number [facility] [place] [address] * Critical Care (12/02/2024 5:55 PM CDT) Narrative Kartik Narvaez MD PhD - 12/02/2024 5:55 PM CDT Kartik Narvaez MD PhD 12/03/2024 10:58 AM Critical Care Performed by: Kartik Narvaez MD PhD Authorized by: Kartik Narvaez MD PhD CRITICAL CARE: Team: 83 CTICU Shift: AM Level of Billing: Critical Care My time spent with this patient was 35 minutes: Critical Provider Statement: I have seen and examined the patient on this day of service. I have reviewed and confirmed the history, physical exam, laboratory and radiologic data as documented in the signed ICU note. I have reviewed and discussed my treatment plan with the ICU team and other medical/vendor management consultant staff, making frequent assessments and decisions regarding this patient's complex medical care. Critical Care time was exclusive of time spent performing separately billed procedures, treating other patients, and teaching. This time was in addition to and separate from critical care provided by other practitioners in my group on this day of service. Critical Care was necessary to treat or prevent imminent or life-threatening deterioration of the following conditions: Acute pain/acute postoperative pain and Agitation requiring sedation Vasoplegic shock Acute respiratory failure following procedure/surgery This time was spent by me doing the following: Serial laboratory checks and Serial bedside patient exams Active titration of continuous sedation and Acute pain control Initiation/active titration of vasoactive medications Active and frequent reassessment of respiratory status and oxygen requirements and Incentive spirometry, pulmonary toilet I spent time reviewing and interpreting data from bedside monitors, laboratory results, and imaging, I spent time discussing the management of this critically ill patient with consultants and the medical staff and I spent time documenting in the medical record us Kartik Narvaez MD PhD IN CLINIC/BEDSIDE ORDERABLES Final Result * POCT glucose (12/02/2024 5:35 PM CDT) Glucose, POC 117 70 - 199 mg/dL Blood 12/02/2024 5:35 PM CDT 12/02/2024 5:35 PM CDT us Daniel Pedraza MD LAB POCT ORDERABLES - DEVICE Final Result [facility] [address] Department of Laboratories [place], [place] [id number] * POCT glucose (12/02/2024 11:19 AM CDT) Glucose, POC 124 70 - 199 mg/dL Blood 12/02/2024 11:1 9 AM CDT 12/02/2024 11:19 AM CDT Daniel Pedraza MD LAB POCT ORDERABLES - DEVICE Final Result Performing Organization Address [facility] de Phone Number [facility] [place] [address] * POCT glucose (12/02/2024 8:42 AM CDT) Glucose, POC 111 70 - 199 mg/dL Blood 12/02/2024 8:42 AM CDT 12/02/2024 8:42 AM CDT Daniel Pedraza MD LAB POCT ORDERABLES - DEVICE Final Result Performing Organization Address [facility] de Phone Number [facility] [place] [address] * Lactate (12/01/2024 11:52 PM CDT) Lactate 2.0 0.7 - 2.0 mmol/L Blood 12/01/2024 11:5 2 PM CDT 12/02/2024 12:38 AM CDT Daniel Pedraza MD LAB BLOOD ORDERABLES Final Result Performing Organization Address [facility] de Phone Number [facility] [place] [address] * Potassium, whole blood (12/01/2024 11:52 PM CDT) Potassium, bld 4.0 3.3 - 4.9 mmol/L Blood 12/01/2024 11:5 2 PM CDT 12/02/2024 12:35 AM CDT Daniel Pedraza MD LAB BLOOD ORDERABLES Edited Result - Final Performing Organization Address [facility] Co de Phone Number [facility] [place] [address] * eGFR (12/01/2024 11:52 PM CDT) Pathologist [facility] eGFR >90 >=60 mL/min/1. 73 m2 Comment: [...] interpretive data was last reviewed 2021. Blood 12/01/2024 11:5 2 PM CDT 12/02/2024 12:38 AM CDT us Daniel Pedraza MD LAB BLOOD ORDERABLES Final Result Performing Organization Address [facility] Co de Phone Number [facility] [place] [address] * (ABNORMAL) Differential, auto (12/01/2024 11:52 PM CDT) Pathologist [facility] Neutrophil abs 10.39(H) 1.50 - 6.50 K/cumm Imm gran abs 0.06 0.00 - 0.10 K/cumm [facility] Lymphocyte abs 0.79(L) 0.80 - 3.30 K/cumm [facility] Monocyte abs 0.91(H) 0.20 - 0.80 K/cumm [facility] Eosinophil abs 0.01 0.00 - 0.50 K/cumm [facility] Basophil abs 0.03 0.00 - 0.10 K/cumm [facility] Neutrophil pct 85.2 % [facility] Comment: Interpretive Data Percent cell count reference ranges are not reported, since discordance with absolute values may lead to misinterpretation of CBC data. Current Interpretive Data was last revised on 2017. Imm gran pct 0.5 % [facility] Comment: Interpretive Data Percent cell count reference ranges are not reported, since discordance with absolute values may lead to misinterpretation of CBC data. Current Interpretive Data was last revised on 2017. Lymphocyte pct 6.5 % [facility] Comment: Interpretive Data Percent cell count reference ranges are not reported, since discordance with absolute values may lead to misinterpretation of CBC data. Current Interpretive Data was last revised on 2017. Monocyte pct 7.5 % [facility] Comment: Interpretive Data Percent cell count reference ranges are not reported, since discordance with absolute values may lead to misinterpretation of CBC data. Current Interpretive Data was last revised on 2017. Eosinophil pct 0.1 % [facility] Comment: Interpretive Data Percent cell count reference ranges are not reported, since discordance with absolute values may lead to misinterpretation of CBC data. Current Interpretive Data was last revised on 2017. Basophil pct 0.2 % [facility] Comment: Interpretive Data Percent cell count reference ranges are not reported, since discordance with absolute values may lead to misinterpretation of CBC data. Current Interpretive Data was last revised on 2017. Blood 12/01/2024 11:5 2 PM CDT 12/02/2024 12:38 AM CDT us Daniel Pedraza MD LAB BLOOD ORDERABLES Final Result [facility] [address] Department [place] [address] * (ABNORMAL) Calcium, ionized (12/01/2024 11:52 PM CDT) Calcium, Ionized 4.46(L) 4.50 - 5.10 mg/dL Blood 12/01/2024 11:5 2 PM CDT 12/02/2024 12:35 AM CDT Daniel Pedraza MD LAB BLOOD ORDERABLES Final Result Performing Organization Address City/[facility]/ZIP Co de Phone Number [facility] [place] [address] * (ABNORMAL) CBC with auto differential (12/01/2024 11:52 PM CDT) Pathologist [facility] WBC 12.19(H) 3.80 - 9.90 K/cumm Hgb 12.3(L) 13.0 - 17.5 g/dL [facility] Hct 36.1(L) 38.9 - 50.3 % [facility] Plt 188 150 - 400 K/cumm [facility] MPV 9.7 9.1 - 12.3 fL [facility] RBC 3.99(L) 4.30 - 5.80 M/cumm [facility] MCV 90.5 81.3 - 96.4 fL [facility] MCH 30.8 27.1 - 33.3 pg [facility] MCHC 34.1 32.3 - 35.7 g/dL [facility] RDW CV 13.2 11.1 - 14.9 % [facility] RDW SD 43.8 35.7 - 48.1 fL [facility] NRBC abs 0.00 0.00 - 0.01 K/cumm [facility] Blood 12/01/2024 11:5 2 PM CDT 12/02/2024 12:38 AM CDT Daniel Pedraza MD LAB BLOOD ORDERABLES Final Result [facility] [place] [address] * aPTT (12/01/2024 11:52 PM CDT) aPTT 28 26 - 38 sec Comment: Interpretive Data Heparin therapeutic range: 66.0 - 100.0 seconds. Range based on correlation with therapeutic heparin activity range of 0.3 - 0.7 Units/mL. Current interpretive data was last revised on 2023. Blood 12/01/2024 11:5 2 PM CDT 12/02/2024 12:53 AM CDT Daniel Pedraza MD LAB BLOOD ORDERABLES Final Result Performing Organization Address [facility] de Phone Number [facility] [place] [place] [address] * Protime-INR (12/01/2024 11:52 PM CDT) [facility] PT 12.3 10.2 - 13.5 sec INR 1.09 0.90 - 1.20 [facility] Comment: Interpretive data Oral anticoagulant therapeutic ranges: Venous thromboembolism prophylaxis or treatment: 2.0-3.0 CARDIOLOGY Standard range: 2.0-3.0 High-intensity range: 2.5-3.5 Refer to indication-specific guidelines for appropriate target ranges for prosthetic heart valve replacement. Current interpretive data was last revised on 2019. Blood 12/01/2024 11:5 2 PM CDT 12/02/2024 12:53 AM CDT Daniel Pedraza MD LAB BLOOD ORDERABLES Final Result Performing Organization Address [facility] de Phone Number [facility] [place] [place] [address] * Phosphorus (12/01/2024 11:52 PM CDT) [facility] Phosphorus, pl 3.4 2.3 - 4.5 mg/dL Blood 12/01/2024 11:5 2 PM CDT 12/02/2024 12:38 AM CDT Daniel Pedraza MD LAB BLOOD ORDERABLES Final Result [facility] [place] [address] * Magnesium (12/01/2024 11:52 PM CDT) [facility] Magnesium 2.4 1.4 - 2.5 mg/dL Blood 12/01/2024 11:5 2 PM CDT 12/02/2024 12:38 AM CDT Daniel Pedraza MD LAB BLOOD ORDERABLES Final Result Performing Organization Address [facility] Co de Phone Number [facility] [place] [address] * (ABNORMAL) Basic metabolic panel (12/01/2024 11:52 PM CDT) [facility] Sodium 140 135 - 145 mmol/L Potassium, pl 4.2 3.3 - 4.9 mmol/L [facility] Chloride 105 97 - 110 mmol/L [facility] CO2 29 22 - 32 mmol/L [facility] Anion gap 6 2 - 15 mmol/L [facility] BUN 23 6 - 25 mg/dL [facility] Creatinine 0.91 0.80 - 1.30 mg/dL [facility] Glucose 148 70 - 199 mg/dL [facility] Comment: Interpretive Data Fasting glucose >/= 126 [...] interpretive data was last revised 2022. Calcium 8.3(L) 8.5 - 10.3 mg/dL [facility] Blood 12/01/2024 11:5 2 PM CDT 12/02/2024 12:38 AM CDT Daniel Pedraza MD LAB BLOOD ORDERABLES Final Result Performing Organization Address City/State/[facility] Co de Phone Number [facility] [place] [address] * POCT glucose (12/01/2024 10:08 PM CDT) Glucose, POC 126 70 - 199 mg/dL Blood 12/01/2024 10:0 8 PM CDT 12/01/2024 10:08 PM CDT Daniel Pedraza MD LAB POCT ORDERABLES - DEVICE Final Result Performing Organization Address [facility] Co de Phone Number [facility] [place] [address] * MS AN PROCEDURE PLACEHOLDER (12/01/2024 8:40 PM CDT) Anatomical Region Laterality Modality Other Narrative 12/01/2024 8:40 PM CDT Itzel Del Rio MD PhD 12/01/2024 9:00 PM JHON Date/time: Staff: Supervising anesthesiologist: Itzel Del Rio MD PhD Performed by: Anesthesiologist: Itzel Del Rio MD PhD Preprocedure checklist: patient identified, procedure contraindications assessed, procedure consent, risks, benefits and alternatives discussed, monitors and equipment checked, timeout performed and JHON probe inserted into esophagus using lubricating jelly General procedure Information: Reason for procedure/indications: assessment of ascending aorta, assessment of surgical repair and hemodynamic monitoring Performed: personally and with fellows Procedure performed at surgeon's request: yes Results discussed with surgeon: yes Images submitted to archive: yes Patient location: OR Intubated: yes Bite blocked placed: yes Probe Insertion: easy Complications: no Probe type: adult Modalities: 2D imaging, 3D imaging, continuous wave Doppler, pulsed wave Doppler and color Doppler Billing information: Physician requesting echo: Daniel Pedraza MD CPT code: JHON placement and diagnostic exam, congenital (41331) ICD code(s) for medical necessity: I35.0 - Nonrheumatic aortic (valve) stenosis Echocardiographic and doppler measurements: Ventricles: Left ventricle: Cavity size: normal Hypertrophy: No Thrombus: No Global function: normal LVEF%: 50-60 Right ventricle: Cavity size: normal Hypertrophy: no Thrombus: No Global function: normal RVEF%: normal Interventricular septum: normal Regional function: 1- Basal anteroseptal: normal 2- Basal anterior: normal 3- Basal anterolateral: normal 4- Basal inferolateral: normal 5- Basal inferior: normal 6- Basal inferoseptal: normal 7- Mid anteroseptal: normal 8- Mid anterior: normal 9- Mid anterolateral: normal 10- Mid inferolateral: normal 11- Mid inferior: normal 12- Mid inferoseptal: normal 13- Apical anterior: normal 14- Apical lateral: normal 15- Apical inferior: normal 16- Apical septal: normal 17- [place]: normal Valves: Aortic Valve: Annulus: normal Leaflet morphology: normal Leaflet motion: normal Stenosis: none Regurgitation: none Mitral valve: Annulus: normal Leaflet morphology anterior: normal Leaflet morphology posterior: normal Leaflet motion anterior: normal Leaflet motion posterior: normal Stenosis: none Regurgitation: none Tricuspid valve: Annulus: normal Leaflet morphology: normal Leaflet motion: normal Stenosis: none Regurgitation: none Pulmonic valve: Annulus: normal Leaflet morphology: calcified Stenosis: none Regurgitation: absent Aorta: Ascending aorta: Size: normal Dissection: no Plaque mobile: no Aortic arch: Size: normal Dissection: no Plaque mobile: no Descending aorta: Size: normal Dissection: no Plaque mobile: no Atria: Right atrium: Size: normal Spontaneous echo contrast: No Thrombus: no Mass: No Left atrium: Size: normal (normal) Spontaneous echo contrast: No Thrombus: no Mass: No Left atrial appendage: normal Interatrial septum: normal Diastolic function and other findings: Diastolic function: normal Pericardium: normal Left pleural effusion: none Right pleural effusion: normal Pulmonary venous flow: normal Pre-procedure JHON exam summary: Pt presents for aortic valve replacement. Exam under GA. Normal biventricular size and function. Bicuspid highly-calcified aortic valve with possible fusion between R and non-coronary cusps. Severe aortic stenosis and eccentric AR directed toward anterior mitral valve leaflet. Aortic annulus measures 2.48 cm. Normal mitral, tricuspid and pulmonic valves. Lipomatous hypertrophy of the interatrial septum; No PFO by CD. DARIEN is patent with no thrombi seen. Normal aorta, with no dissection. No pleural or pericardial effusions. Postprocedure (follow-up) JHON exam: LV: unchanged RV: unchanged Interventricular septum: unchanged Aortic valve: unchanged Mitral valve: unchanged Pulmonic valve: unchanged Tricuspid valve: unchanged Atria: unchanged Aorta: unchanged Pericardium: unchanged Left pleural: unchanged Right pleural: unchanged Postprocedure (follow-up) JHON exam comments: S/p replacement of aortic valve with 29 mm Inspiris. No inotropes. Normal biventricular function. AV is well positioned with no paravalvular leak and appropriate leaflet opening. Mean gradient of 1 mmHg. Otherwise no other changes. No changes after chest closure. Attestation Statement: By signing this report the attending anesthesiologist certifies that he or she has personally reviewed and interpreted the echocardiogram and has reviewed and or edited and agrees with the written comments contained within the report. Itzel Del Rio MD PhD ANESTHESIA OR DERABLES Edited Result - Final * XR Chest 1 View - in PM (12/01/2024 8:31 PM CDT) Anatomical Region Laterality Modality Body, Chest N/A Digital Radiogra phy 12/02/2024 10:0 0 AM CDT Impressions 12/02/2024 10:00 AM CDT There has been interval extubation. A right internal jugular central venous catheter terminates at the superior vena cava. A mediastinal and pericardial drain are present. An aortic valve replacement is present. Sternal plates are aligned. The lung volumes remain small with mild bibasilar atelectasis. Trace bilateral pleural effusions are present. There is no pneumothorax. The cardiomediastinal silhouette is unchanged. Electronically signed by: Ilan Belcher M.D. Narrative 12/02/2024 10:00 AM CDT EXAMINATION: XR CHEST 1 VIEW COMPARISON: 12/01/2024 1:26 PM Procedure Note Ilan Belcher MD PhD - 12/02/2024 EXAMINATION: XR CHEST 1 VIEW COMPARISON: 12/01/2024 1:26 PM IMPRESSION: There has been interval extubation. A right internal jugular central venous catheter terminates at the superior vena cava. A mediastinal and pericardial drain are present. An aortic valve replacement is present. Sternal plates are aligned. The lung volumes remain small with mild bibasilar atelectasis. Trace bilateral pleural effusions are present. There is no pneumothorax. The cardiomediastinal silhouette is unchanged. Electronically signed by: Ilan Belcher M.D. Daniel Pedraza MD IMG XR PROCEDURES Fi nal Result * POCT glucose (12/01/2024 7:49 PM CDT) Pathologist [facility] Glucose, POC 194 70 - 199 mg/dL Blood 12/01/2024 7:49 PM CDT 12/01/2024 7:49 PM CDT Result [facility] Daniel Pedraza MD LAB POCT ORDERABLES - DEVICE Final Result Performing Organization Address City/[facility]/ZIP Co de Phone Number [facility] [place] [address] * Infection Prevention Lyndsey auris PCR, surveillance Axilla/Groin (12/01/2024 6:50 PM CDT) Pathologist [facility] Lyndsey auris DNA Not Detected Not Detected [facility] Comment: Interpretive Data Testing performed by [facility] using the Ejnny khloe [id number] Lyndsey auris assay. This assay detects DNA from Lyndsey auris using Real-Time PCR. This assay is laboratory developed and is not cleared by the [place] Food and Drug Administration. The performance characteristics have been verified by the [facility]. Axilla/Groin 12/01/2024 6:50 PM CDT 12/01/2024 7:25 PM CDT Result [facility] Enmanuel Morse MD LAB MICROBIOLOGY - GENERAL ORDER ROCIO Final Result Performing Organization Address City/[facility]/ZIP Co de Phone Number [facility] [place] [address] [facility] * POCT glucose (12/01/2024 5:38 PM CDT) Glucose, POC 149 70 - 199 mg/dL Blood 12/01/2024 5:38 PM CDT 12/01/2024 5:38 PM CDT Daniel Pedraza MD LAB POCT ORDERABLES - DEVICE Final Result Performing Organization Address [facility]/State/[facility] [place] [address] * POCT glucose (12/01/2024 4:02 PM CDT) Glucose, POC 153 70 - 199 mg/dL Blood 12/01/2024 4:02 PM CDT 12/01/2024 4:02 PM CDT Daniel Pedraza MD LAB POCT ORDERABLES - DEVICE Final Result Performing Organization Address [facility] [place] [address] * XR Chest 1 View (12/01/2024 2:16 PM CDT) Anatomical Region Laterality Modality Body, Chest N/A Digital Radiogra phy 12/01/2024 2:23 PM CDT Impressions 12/01/2024 2:23 PM CDT The current study is compared with the prior radiograph dated 11/15/2024. A right internal jugular catheter is in place, tip overlies the superior vena cava. An endotracheal tube is approximately 2 centimeters above the vish. Sternal plates are present. The patient is status post a new aortic valve replacement. The heart and mediastinal contours are stable. There is no pneumothorax.. There are no effusions. There are small lung volumes, as a consequence there is both vascular crowding and atelectasis... Electronically signed by: Kaitlin Lazar M.D. Narrative 12/01/2024 2:23 PM CDT EXAMINATION: 1 view chest radiograph Procedure Note Kaitlin Lazar MD - 12/01/2024 EXAMINATION: 1 view chest radiograph IMPRESSION: The current study is compared with the prior radiograph dated 11/15/2024. A right internal jugular catheter is in place, tip overlies the superior vena cava. An endotracheal tube is approximately 2 centimeters above the vish. Sternal plates are present. The patient is status post a new aortic valve replacement. The heart and mediastinal contours are stable. There is no pneumothorax.. There are no effusions. There are small lung volumes, as a consequence there is both vascular crowding and atelectasis... Electronically signed by: Kaitlin Lazar M.D. Daniel Pedraza MD IMG XR PROCEDURES Fi nal Result * POCT glucose (12/01/2024 1:59 PM CDT) Glucose, POC 130 70 - 199 mg/dL Blood 12/01/2024 1:59 PM CDT 12/01/2024 1:59 PM CDT Daniel Pedraza MD LAB POCT ORDERABLES - DEVICE Final Result Performing Organization Address City/State/[facility] Co de Phone Number [facility] [place] [address] * Critical Care (12/01/2024 1:25 PM CDT) Narrative Jorden Coley MD - 12/01/2024 1:25 PM CDT Jorden Coley MD 12/01/2024 4:30 PM Critical Care Performed by: Jorden Coley MD Authorized by: Jorden Coley MD CRITICAL CARE: Team: 83 CTICU Shift: AM Level of Billing: Critical Care My time spent with this patient was 35 minutes: Critical Provider Statement: I have seen and examined the patient on this day of service. I have reviewed and confirmed the history, physical exam, laboratory and radiologic data as documented in the signed ICU note. I have reviewed and discussed my treatment plan with the ICU team and other medical/vendor management consultant staff, making frequent assessments and decisions regarding this patient's complex medical care. Critical Care time was exclusive of time spent performing separately billed procedures, treating other patients, and teaching. This time was in addition to and separate from critical care provided by other practitioners in my group on this day of service. Critical Care was necessary to treat or prevent imminent or life-threatening deterioration of the following conditions: Acute pain/acute postoperative pain Undifferentiated shock This time was spent by me doing the following: Acute pain control and Active titration of continuous sedation Initiation/active titration of vasoactive medications Incentive spirometry, pulmonary toilet I spent time reviewing and interpreting data from bedside monitors, laboratory results, and imaging, I spent time discussing the management of this critically ill patient with consultants and the medical staff and I spent time documenting in the medical record us Jorden Coley MD IN CLINIC/BEDSIDE ORDERABLES Fin al Result * eGFR (12/01/2024 12:53 PM CDT) eGFR >90 >=60 mL/min/1. 73 [...] interpretive data was last reviewed 2021. Blood 12/01/2024 12:5 3 PM CDT 12/01/2024 1:14 PM CDT us Daniel Pedraza MD LAB BLOOD ORDERABLES Final Result [facility] [place] [address] * (ABNORMAL) POC Blood Gas and Chemistries, Arterial - (12/01/2024 12:53 PM CDT) pH, Art POC 7.38 7.35 - 7.45 pCO2, Art POC 44 35 - 45 mmHg [facility] pO2, Art POC 86 83 - 108 mmHg [facility] Na, POC 141 135 - 145 mmol/L [facility] K POC 4.1 3.3 - 4.9 mmol/L [facility] Comment: Interpretive Data Not all point of care methods assess for hemolysis. Confirm with instrument and retest K+ if not consistent with clinical signs and symptoms. Current Interpretive Data was last revised on 2023. Cl, POC 106 97 - 110 mmol/L [facility] Ionized Ca, POC 4.93 4.50 - 5.10 mg/dL [facility] Glucose, POC 137 70 - 199 mg/dL [facility] Lactate POC 1.9 0.7 - 2.0 mmol/L [facility] SO2 (jenni) arterial 98(H) 90 - 95 % [facility] Base excess, POC 0.5 mmol/L [facility] HCO3, Art POC 26 20 - 30 mmol/L [facility] Hct, POC 41.0(L) 41.4 - 51.6 % [facility] Total Hb, POC 13.7(L) 13.8 - 17.2 g/dL [facility] Blood 12/01/2024 12:5 3 PM CDT 12/01/2024 12:53 PM CDT us Daniel Pedraza MD LAB POCT ORDERABLES - DEVICE Final Result Performing Organization Address City/[facility]/ZIP Co de Phone Number [facility] [place] [address] * aPTT (12/01/2024 12:53 PM CDT) aPTT 28 26 - 38 sec Comment: Interpretive Data Heparin therapeutic range: 66.0 - 100.0 seconds. Range based on correlation with therapeutic heparin activity range of 0.3 - 0.7 Units/mL. Current interpretive data was last revised on 2023. Blood 12/01/2024 12:5 3 PM CDT 12/01/2024 1:09 PM CDT Daniel Pedraza MD LAB BLOOD ORDERABLES Final Result Performing Organization Address City/[facility] Co de Phone Number [facility] [place] [employer] [place] [address] * Protime-INR (12/01/2024 12:53 PM CDT) Pathologist [facility] PT 13.1 10.2 - 13.5 sec INR 1.16 0.90 - 1.20 [facility] Comment: Interpretive data Oral anticoagulant therapeutic ranges: Venous thromboembolism prophylaxis or treatment: 2.0-3.0 CARDIOLOGY Standard range: 2.0-3.0 High-intensity range: 2.5-3.5 Refer to indication-specific guidelines for appropriate target ranges for prosthetic heart valve replacement. Current interpretive data was last revised on 2019. Blood 12/01/2024 12:5 3 PM CDT 12/01/2024 1:09 PM CDT Daniel Pedraza MD LAB BLOOD ORDERABLES Final Result Performing Organization Address City/[facility]/ZIP Co de Phone Number [facility] [place] [employer] [place] [address] * (ABNORMAL) CBC without differential (12/01/2024 12:53 PM CDT) Pathologist [facility] WBC 22.86(H) 3.80 - 9.90 K/cumm Hgb 13.1 13.0 - 17.5 g/dL [facility] Hct 39.0 38.9 - 50.3 % [facility] Plt 245 150 - 400 K/cumm [facility] MPV 10.0 9.1 - 12.3 fL [facility] RBC 4.23(L) 4.30 - 5.80 M/cumm [facility] MCV 92.2 81.3 - 96.4 fL [facility] MCH 31.0 27.1 - 33.3 pg [facility] MCHC 33.6 32.3 - 35.7 g/dL [facility] RDW CV 13.0 11.1 - 14.9 % [facility] RDW SD 42.7 35.7 - 48.1 fL [facility] NRBC abs 0.00 0.00 - 0.01 K/cumm [facility] Blood 12/01/2024 12:5 3 PM CDT 12/01/2024 1:14 PM CDT Daniel Pedraza MD LAB BLOOD ORDERABLES Final Result [facility] Department [place] [employer] [place] [address] * (ABNORMAL) Magnesium (12/01/2024 12:53 PM CDT) Pathologist [facility] Magnesium 2.6(H) 1.4 - 2.5 mg/dL Blood 12/01/2024 12:5 3 PM CDT 12/01/2024 1:14 PM CDT Daniel Pedraza MD LAB BLOOD ORDERABLES Final Result [facility] [place] [employer] [place] [address] * Lipid panel (12/01/2024 12:53 PM CDT) Cholesterol 126 30 - 199 mg/dL Comment: Interpretive Data Ages < or = 19 years Acceptable: <170 mg/dL Borderline high: 170-199 mg/dL High: >or= 200 mg/dL Ages > or = 20 years Desirable: <200 mg/dL Borderline high: 200-239 mg/dL High: >or= 240 mg/dL Literature References: 1. Expert Panel on Integrated Guidelines for Cardiovascular Health and Risk Reduction in Children and Adolescents. Pediatrics 2011;128:S213 2. NCEP Expert Panel. Circulation 2004;110:227 Current Interpretive Data was last revised on 2017. Triglycerides 99 <=149 mg/dL [facility] Comment: Interpretive Data Ages < or = 9 years Acceptable: <75 mg/dL Borderline high: 75-99 mg/dL High: >or= 100 mg/dL Ages 10 to 20 years Acceptable: <90 mg/dL Borderline high: 90-129 mg/dL High: >or= 130 mg/dL Ages > or = 20 years Desirable: <150 mg/dL Borderline high: 150-199 mg/dL High: 200-499 mg/dL Very high: >or= 499 mg/dL Literature References: 1. Expert Panel on Integrated Guidelines for Cardiovascular Health and Risk Reduction in Children and Adolescents. Pediatrics 2011;128:S213 2. NCEP Expert Panel. Circulation 2004;110:227 Current Interpretive Data was last revised on 2017. HDL 41 >=40 mg/dL [facility] Comment: Interpretive Data Ages < or = 19 years Acceptable: >45 mg/dL Borderline low: 40-45 mg/dL Low: <40 mg/dL Ages > or = 20 years Desirable: >or= 60 mg/dL Low: <40 mg/dL Literature References: 1. Expert Panel on Integrated Guidelines for Cardiovascular Health and Risk Reduction in Children and Adolescents. Pediatrics 2011;128:S213 2. NCEP Expert Panel. Circulation 2004;110:227 Current Interpretive Data was last revised on 2017. LDL, calculated 66 <=129 mg/dL [facility] Comment: Interpretive Data Ages < or = 19 years Acceptable: <110 mg/dL Borderline high: 110-129 mg/dL High: >or= 130 mg/dL Ages > or = 20 years Optimal: <100 mg/dL Near optimal: 100-129 mg/dL Borderline high: 130-159 mg/dL High: >160 mg/dL Calculated using the Wallace LDL-C estimating equation. This equation was implemented on 2023. Prior to this date LDL-C was estimated using the Friedewald equation. Literature References: 1. Expert Panel on Integrated Guidelines for Cardiovascular Health and Risk Reduction in Children and Adolescents. Pediatrics 2011;128:S213 2. NCEP Expert Panel. Circulation 2004;110:227 3. Rodrigo Mahoney et al. DANIEL Cardiol. 2020 August 10;5(5):540-548. doi: 10.1001/[email or web address].2020.0013 Current Interpretive Data was last revised on 2023. Non-HDL Cholesterol 85 mg/dL [facility] Comment: Interpretive Data Ages < or = 19 years Acceptable: <120 mg/dL Borderline high: 120-144 mg/dL High: >145 mg/dL Ages > or = 20 years When triglycerides are >200 mg/dL, Non-HDL cholesterol is a secondary target of therapy with treatment goals that are 30 mg/dL greater than the LDL cholesterol target. Literature References: 1. Expert Panel on Integrated Guidelines for Cardiovascular Health and Risk Reduction in Children and Adolescents. Pediatrics 2011;128:S213 2. NCEP Expert Panel. Circulation 2004;110:227 Current Interpretive Data was last revised on 2017. Chol/HDL ratio 3 [facility] Blood 12/01/2024 12:5 3 PM CDT 12/01/2024 1:14 PM CDT us Daniel Pedraza MD LAB BLOOD ORDERABLES Final Result [facility] [address] [facility] [place] [address] * Basic metabolic panel (12/01/2024 12:53 PM CDT) Sodium 143 135 - 145 mmol/L Potassium, pl 4.1 3.3 - 4.9 mmol/L [facility] Chloride 107 97 - 110 mmol/L [facility] CO2 27 22 - 32 mmol/L [facility] Anion gap 9 2 - 15 mmol/L [facility] BUN 20 6 - 25 mg/dL [facility] Creatinine 0.91 0.80 - 1.30 mg/dL [facility] Glucose 134 70 - 199 mg/dL [facility] Comment: Interpretive Data Fasting glucose >/= 126 [...] classification and Diagnosis of Diabetes Diabetes Care 202; 46: S19-S40. Current interpretive data was last revised 2022. Calcium 8.9 8.5 - 10.3 mg/dL [facility] Blood 12/01/2024 12:5 3 PM CDT 12/01/2024 1:14 PM CDT Daniel Pedraza MD LAB BLOOD ORDERABLES Final Result [facility] [address] [facility] [place] [address] * CV Hybrid Room (Default Orderable) (12/01/2024 12:30 PM CDT) Anatomical Region Laterality Modality X-Ray Angiograph y Narrative 12/01/2024 12:47 PM CDT Please see OpNote for result. Daniel Pedraza MD SURGICAL CASE ORDERS Final Result * (ABNORMAL) POC Blood Gas and Chemistries, Arterial - (12/01/2024 11:46 AM CDT) pH, Art POC 7.38 7.35 - 7.45 pCO2, Art POC 41 35 - 45 mmHg [facility] pO2, Art POC 331(H) 83 - 108 mmHg [facility] Na, POC 140 135 - 145 mmol/L [facility] K POC 3.9 3.3 - 4.9 mmol/L [facility] Comment: Interpretive Data Not all point of care methods assess for hemolysis. Confirm with instrument and retest K+ if not consistent with clinical signs and symptoms. Current Interpretive Data was last revised on 2023. Cl, POC 109 97 - 110 mmol/L [facility] Ionized Ca, POC 4.88 4.50 - 5.10 mg/dL [facility] Glucose, POC 135 70 - 199 mg/dL [facility] Lactate POC 2.9(H) 0.7 - 2.0 mmol/L [facility] SO2 (jenni) arterial 100(H) 90 - 95 % [facility] Base excess, POC -0.8 mmol/L [facility] HCO3, Art POC 24 20 - 30 mmol/L [facility] Hct, POC 37.0(L) 41.4 - 51.6 % [facility] Total Hb, POC 12.4(L) 13.8 - 17.2 g/dL [facility] Blood 12/01/2024 11:4 6 AM CDT 12/01/2024 11:46 AM CDT Daniel Pedraza MD LAB POCT ORDERABLES - DEVICE Final Result [facility] Department [place] [employer] [place] [address] * POCT heparin/ACT CPB (12/01/2024 11:34 AM CDT) Pathologist [facility] Heparin POC 0.0 units/mL ACT, CPB 114 112 - 174 sec [facility] Blood 12/01/2024 11:3 4 AM CDT 12/01/2024 11:34 AM CDT Daniel Pedraza MD LAB POCT ORDERABLES - DEVICE Final Result [facility] [place] [employer] [place] [place] [address] * (ABNORMAL) POCT prothrombin time (12/01/2024 11:33 AM CDT) PT, POC 21.1(H) 11.7 - 16.6 sec INR, POC 1.6(H) 0.9 - 1.2 [facility] Blood 12/01/2024 11:3 3 AM CDT 12/01/2024 11:33 AM CDT Result [facility] Daniel Pedraza MD LAB POCT ORDERABLES - DEVICE Final Result Performing Organization Address [facility] Co de Phone Number [facility] [place] [address] * POCT Partial thromboplastin time (PTT) (12/01/2024 11:33 AM CDT) APTT, POC 38.7 32.5 - 46.1 sec Blood 12/01/2024 11:3 3 AM CDT 12/01/2024 11:33 AM CDT Result [facility] Daniel Pedraza MD LAB POCT ORDERABLES - DEVICE Final Result Performing Organization Address [facility] Co de Phone Number [facility] [place] [employer] [place] [address] * (ABNORMAL) POCT hemoglobin, hematocrit and platelet count (12/01/2024 11:29 AM CDT) Pathologist [facility] Hgb, POC 12.1(L) 13.0 - 17.5 g/dL Hematocrit POC 36.1(L) 38.9 - 50.3 % [facility] Platelet POC 219 150 - 400 K/cumm [facility] Blood 12/01/2024 11:2 9 AM CDT 12/01/2024 11:29 AM CDT Daniel Pedraza MD LAB POCT ORDERABLES - DEVICE Final Result Performing Organization Address City/[facility] Co de Phone Number [facility] [place] [place] [address] * (ABNORMAL) POCT heparin/ACT CPB (12/01/2024 10:23 AM CDT) Heparin POC 4.1 units/mL ACT, CPB 619(H) 112 - 174 sec [facility] Blood 12/01/2024 10:2 3 AM CDT 12/01/2024 10:23 AM CDT Daniel Pedraza MD LAB POCT ORDERABLES - DEVICE Final Result [facility] [address] [facility] [place] [address] * (ABNORMAL) POC Blood Gas and Chemistries, Arterial - (12/01/2024 10:19 AM CDT) pH, Art POC 7.40 7.35 - 7.45 pCO2, Art POC 40 35 - 45 mmHg [facility] pO2, Art POC 297(H) 83 - 108 mmHg [facility] Na, POC 139 135 - 145 mmol/L [facility] K POC 4.5 3.3 - 4.9 mmol/L [facility] Comment: Interpretive Data Not all point of care methods assess for hemolysis. Confirm with instrument and retest K+ if not consistent with clinical signs and symptoms. Current Interpretive Data was last revised on 2023. Cl, POC 108 97 - 110 mmol/L [facility] Ionized Ca, POC 4.30(L) 4.50 - 5.10 mg/dL [facility] Glucose, POC 172 70 - 199 mg/dL [facility] Lactate POC 1.5 0.7 - 2.0 mmol/L [facility] SO2 (jenni) arterial 100(H) 90 - 95 % [facility] Base excess, POC 0.0 mmol/L [facility] HCO3, Art POC 25 20 - 30 mmol/L [facility] Hct, POC 36.0(L) 41.4 - 51.6 % [facility] Total Hb, POC 12.1(L) 13.8 - 17.2 g/dL [facility] Blood 12/01/2024 10:1 9 AM CDT 12/01/2024 10:19 AM CDT Daniel Pedraza MD LAB POCT ORDERABLES - DEVICE Final Result Performing Organization Address City/[facility]/ZIP Co de Phone Number [facility] [place] [employer] [place] [address] * (ABNORMAL) POCT heparin/ACT CPB (12/01/2024 9:49 AM CDT) Pathologist [facility] Heparin POC >4.7 units/mL ACT, CPB 803(H) 112 - 174 sec [facility] Blood 12/01/2024 9:49 AM CDT 12/01/2024 9:49 AM CDT Daniel Pedraza MD LAB POCT ORDERABLES - DEVICE Final Result Performing Organization Address [facility] de Phone Number [facility] [place] [address] * (ABNORMAL) POC Blood Gas and Chemistries, Arterial - (12/01/2024 9:46 AM CDT) [facility] pH, Art POC 7.38 7.35 - 7.45 pCO2, Art POC 43 35 - 45 mmHg [facility] pO2, Art POC 281(H) 83 - 108 mmHg [facility] Na, POC 138 135 - 145 mmol/L [facility] K POC 5.1(H) 3.3 - 4.9 mmol/L [facility] Comment: Interpretive Data Not all point of care methods assess for hemolysis. Confirm with instrument and retest K+ if not consistent with clinical signs and symptoms. Current Interpretive Data was last revised on 2023. Cl, POC 108 97 - 110 mmol/L [facility] Ionized Ca, POC 4.33(L) 4.50 - 5.10 mg/dL [facility] Glucose, POC 199 70 - 199 mg/dL [facility] Lactate POC 1.6 0.7 - 2.0 mmol/L [facility] SO2 (jenni) arterial 99(H) 90 - 95 % [facility] Base excess, POC 0.1 mmol/L [facility] HCO3, Art POC 25 20 - 30 mmol/L [facility] Hct, POC 38.0(L) 41.4 - 51.6 % [facility] Total Hb, POC 12.5(L) 13.8 - 17.2 g/dL [facility] Blood 12/01/2024 9:46 AM CDT 12/01/2024 9:46 AM CDT us Daniel Pedraza MD LAB POCT ORDERABLES - DEVICE Final Result [facility] [place] [address] * Surgical pathology (12/01/2024 9:40 AM CDT) Tissue (Aorta) 12/01/2024 9: 40 AM CDT Narrative PATHOLOGY [facility] - 12/06/2024 11:30 AM CDT EPIC results best viewed via link to PDF [facility] [place] [address] Note to Patients: This report may contain a detailed description of human tissue sent by a health care provider to the laboratory for pathologic evaluation. The content of this report is essential for diagnosis and may provide important critical findings. This information may be unfamiliar to patients to review without a medical professional present. It is advised that the patient review this report in the presence of a health care provider who can answer questions and explain the details. SURGICAL PATHOLOGY REPORT FINAL Patient Name: IKE RAPHAEL Gender: M : 1955 (Age: 69) Address: [address] [place] [id number] Hospital #: [id number] Taken:12/01/2024 Received:12/01/2024 Reported: 12/06/2024 Patient Type: [facility] Inpatient Service: Cardiothoracic Location: [facility] P073 Physician(s): MD Dani Fisher M.D. Diagnosis: A. 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 Josephine Frye MD PhD Report Electronically Reviewed and Signed Out By Josephine Frye MD PhD 12/06/2024 11:30:36 Carlin Riojas M.D. History: The patient is a 69-year-old man with nonrheumatic aortic valve stenosis. Operative procedure: aortic valve replacement with 29 mm Inspira spiral prosthetic and sternal plating with Sarath plating system. Specimen(s) Received: A: Aortic valve Gross Description: Received in formalin, labeled with the patient s identifiers and aortic valve are two villarreal-white, diffusely thickened fragments of aortic valve measuring 3.0 x 1.5 x 1.0 cm and 3.7 x 2.3 x 1.6 cm. Sectioning through the thickened areas reveals villarreal-white calcifications. House Carpenter Helper sections are submitted following acid 1 Decalcification. Labeled A1. Jar 1. b12/01/2024 15:19 PA(s): NOA Warren By this signature, I attest that the above diagnosis is based upon my personal examination of the slides(and/or other material). Addenda/Procedures The performance characteristics of some immunohistochemical stains, fluorescence in-situ hybridization tests and immunophenotyping by flow cytometry cited in this report (if any) were determined by the Surgical Pathology and Flow Cytometry Departments at [facility] as part of an ongoing air quality engineer program and in compliance with federally mandated regulations drawn from the Clinical Laboratory Improvement Act of 1988 (CLIA '88). Some of these tests rely on the use of analyte specific reagents and are subject to specific labeling requirements by the US Food and Drug Administration. Such diagnostic tests may only be performed in a facility that is certified by the Department of Health and Human Services as a high complexity laboratory under CLIA '88. The FDA has determined that such clearance or approval is not necessary. This test is used for clinical purposes. It should not be regarded as investigational or for research. Nevertheless, federal rules concerning the medical use of analyte specific reagents require that the following disclaimer be attached to the report: This test was developed and its performance characteristics determined by the Surgical Pathology and Flow Cytometry Departments of [facility]. It has not been cleared or approved by the U. S. Food and Drug Administration. IMAGES AND SCANNED DOCUMENTS, IF INCLUDED, ONLY VIEWABLE IN PDF VERSION OF REPORT Daniel Pedraza MD LAB PATHOLOGY ORDERA BLES Final Result PATHOLOGY [facility] IO [address] Floor [place], [place] [phone] * (ABNORMAL) POCT heparin/ACT CPB (12/01/2024 9:30 AM CDT) [facility] Heparin POC --- units/mL ACT, CPB 608(H) 112 - 174 sec [facility] Blood 12/01/2024 9:30 AM CDT 12/01/2024 9:30 AM CDT Daniel Pedraza MD LAB POCT ORDERABLES - DEVICE Final Result Performing Organization Address [facility] Co de Phone Number [facility] [place] [address] * (ABNORMAL) POC Blood Gas and Chemistries, Arterial - (12/01/2024 9:27 AM CDT) [facility] pH, Art POC 7.39 7.35 - 7.45 pCO2, Art POC 44 35 - 45 mmHg [facility] pO2, Art POC 395(H) 83 - 108 mmHg [facility] Na, POC 139 135 - 145 mmol/L [facility] K POC 4.3 3.3 - 4.9 mmol/L [facility] Comment: Interpretive Data Not all point of care methods assess for hemolysis. Confirm with instrument and retest K+ if not consistent with clinical signs and symptoms. Current Interpretive Data was last revised on 2023. Cl, POC 107 97 - 110 mmol/L [facility] Ionized Ca, POC 4.49(L) 4.50 - 5.10 mg/dL [facility] Glucose, POC 182 70 - 199 mg/dL [facility] Lactate POC 1.5 0.7 - 2.0 mmol/L [facility] SO2 (jenni) arterial 100(H) 90 - 95 % [facility] Base excess, POC 1.2 mmol/L [facility] HCO3, Art POC 26 20 - 30 mmol/L [facility] Hct, POC 42.0 41.4 - 51.6 % [facility] Total Hb, POC 14.0 13.8 - 17.2 g/dL [facility] Blood 12/01/2024 9:27 AM CDT 12/01/2024 9:27 AM CDT Daniel Pedraza MD LAB POCT ORDERABLES - DEVICE Final Result Performing Organization Address [facility]/ZIP Co de Phone Number [facility] Department [place] [employer] [place] [place] [address] * Type and screen (12/01/2024 9:18 AM CDT) ABO Rh O Positive Blood 12/01/2024 9:18 AM CDT 12/01/2024 9:42 AM CDT Narrative [facility] - 12/01/2024 11:11 AM CDT Has the patient had Daratumumab or Isatuximab in the past 6 months?->Unknown us Itzel Del Rio MD PhD LAB BLOOD BAN K TEST ORDERABLES Final Result [facility] [place] [employer] [place] [address] * Central Venous Line (12/01/2024 8:52 AM CDT) Narrative Jos Messina MD - 12/01/2024 8:52 AM CDT Jos Messina MD 12/01/2024 8:52 AM Central Venous Line Patient location: OR Indication: central venous access and CVP monitoring Staff: Supervising provider: Itzel Del Rio MD PhD Placed by: Resident: Jos Messina MD Procedure prep: Patient position: Trendelenburg. PPE: provider hand hygiene, provider hat/mask, sterile gloves, sterile gown, large sterile drape, full body drape, sterile gel and sterile probe covers. Prep solution: chlorhexadine/alcohol was applied to area. Ultrasound Evaluation: Ultrasound was prepped into field. Ultrasound image(s) saved to archive. Prior to the procedure, the cannulated vein was evaluated by ultrasound and deemed suitably patent for access.This vessel was accessed using real-time ultrasound guidance and an image was placed in the patient's medical record Central line: Laterality: right Site: internal jugular Catheter type: introducer sheath Catheter size: 9 Fr. Additional catheter placed through introducer: single lumen infusion catheter (SLIC) Technique: anatomy identified with ultrasound, anatomy identified with surface landmarks, vein located with finder needle, Seldinger technique, wire threaded easily and wire removed intact Venous verification: manometry, pressure transduced, ultrasound confirmation and JHON confirmation Chlorhexidine patch applied: yes Number of attempts: 1 Assessment: Events: patient tolerated procedure well with no complications Itzel Del Rio MD PhD ANESTHESIA OR DERABLES Final Result * Central Venous Line (12/01/2024 8:51 AM CDT) Narrative Jos Messina MD - 12/01/2024 8:51 AM CDT Jos Messina MD 12/01/2024 8:52 AM Central Venous Line Patient location: OR Indication: central venous access and CVP monitoring Staff: Supervising provider: Itzel Del Rio MD PhD Placed by: Resident: Jos Messina MD Procedure prep: Patient position: Trendelenburg. PPE: provider hand hygiene, provider hat/mask, sterile gloves, sterile gown, full body drape, sterile gel and sterile probe covers. Prep solution: chlorhexadine/alcohol was applied to area. Ultrasound Evaluation: Ultrasound was prepped into field. Ultrasound image(s) saved to archive. Prior to the procedure, the cannulated vein was evaluated by ultrasound and deemed suitably patent for access.This vessel was accessed using real-time ultrasound guidance and an image was placed in the patient's medical record Central line: Laterality: right Site: internal jugular Catheter type: quad lumen Catheter size: 7.5 Fr. Catheter length: 16 cm Catheter length at skin: 16 cm Technique: anatomy identified with surface landmarks, anatomy identified with ultrasound, vein located with finder needle, Seldinger technique, wire threaded easily and wire removed intact Venous verification: manometry, pressure transduced, ultrasound confirmation and JHON confirmation Post insertion: all ports aspirated, all ports flushed easily, line sutured in place and occlusive dressing applied Chlorhexidine patch applied: yes Number of attempts: 1 Assessment: Events: patient tolerated procedure well with no complications us Itzel Del Rio MD PhD ANESTHESIA OR DERABLES Final Result * Airway (12/01/2024 8:51 AM CDT) Narrative Jos Messina MD - 12/01/2024 8:51 AM CDT Jos Messina MD 12/01/2024 8:51 AM Airway Patient location: OR Urgency: elective Indications for airway management: anesthesia Difficult airway: no Staff: Supervising provider: Itzel Del Rio MD PhD Placed by: Resident: Jos Messina MD Emergent airway documentation: Risks and benefits discussed: yes Consent obtained: yes Consent given by: patient Airway prep: Preoxygenated: yes Patient position: sniffing Mask difficulty assessment: 3 - difficult mask (inadequate, unstable or two providers) Spontaneous ventilation during airway: absent Sedation level during airway: GA Final airway details: Final airway type: endotracheal airway Tube type: ETT ETT size: 8.0 mm Cuffed: yes Technique used for successful ETT placement: video laryngoscopy Devices/Methods used in placement: stylet Insertion site: oral Blade type: Trung Video blade type: Vasquez Blade size: 4 Cormack-Lehane (video): grade IIa - partial view of glottis ETT to teeth: 24 cm Placement verified by: auscultation and CO2 detection Airway secured with: silk tape Number of attempts: 1 us Itzel Del Rio MD PhD ANESTHESIA OR DERABLES Final Result * Antibody identification (12/01/2024 8:47 AM CDT) Pathologist [facility] Antibody ID 1 Antibody of Undetermined Specificity Blood 12/01/2024 8:47 AM CDT 12/01/2024 8:47 AM CDT Daniel Pedraza MD LAB BLOOD BANK TEST ORDERABLES Final Result Performing Organization Address City/[facility] Co de Phone Number [facility] [place] [address] * POCT heparin dose response, CPB (12/01/2024 8:35 AM CDT) [facility] Baseline ACT POC 149 112 - 174 sec Heparin dose response slope POC 104 60 - 195 [facility] Projected Heparin Concentration POC 3.2 units/mL [facility] Blood 12/01/2024 8:35 AM CDT 12/01/2024 8:35 AM CDT Daniel Pedraza MD LAB POCT ORDERABLES - DEVICE Final Result Performing Organization Address [facility] de Phone Number [facility] [place] [address] * (ABNORMAL) POC Blood Gas and Chemistries, Arterial - (12/01/2024 8:32 AM CDT) [facility] pH, Art POC 7.45 7.35 - 7.45 pCO2, Art POC 38 35 - 45 mmHg [facility] pO2, Art POC 330(H) 83 - 108 mmHg [facility] Na, POC 138 135 - 145 mmol/L [facility] K POC 4.0 3.3 - 4.9 mmol/L [facility] Comment: Interpretive Data Not all point of care methods assess for hemolysis. Confirm with instrument and retest K+ if not consistent with clinical signs and symptoms. Current Interpretive Data was last revised on 2023. Cl, POC 106 97 - 110 mmol/L [facility] Ionized Ca, POC 4.60 4.50 - 5.10 mg/dL [facility] Glucose, POC 119 70 - 199 mg/dL [facility] Lactate POC 1.5 0.7 - 2.0 mmol/L [facility] SO2 (jenni) arterial 100(H) 90 - 95 % [facility] Base excess, POC 2.4 mmol/L [facility] HCO3, Art POC 27 20 - 30 mmol/L [facility] Hct, POC 44.0 41.4 - 51.6 % [facility] Total Hb, POC 14.6 13.8 - 17.2 g/dL [facility] Blood 12/01/2024 8:32 AM CDT 12/01/2024 8:32 AM CDT us Daniel Pedraza MD LAB POCT ORDERABLES - DEVICE Final Result Performing Organization Address [facility] Co de Phone Number [facility] [place] [address] * (ABNORMAL) Type and screen (12/01/2024 6:53 AM CDT) Kristin, indirect Positive(A) ABO Rh O Positive [facility] Blood 12/01/2024 6:53 AM CDT 12/01/2024 7:03 AM CDT Narrative [facility] - 12/01/2024 8:47 AM CDT Has the patient had Daratumumab or Isatuximab in the past 6 months?->Unknown us Daniel Pedraza MD LAB BLOOD BANK TEST ORDERABLES Final Result [facility] [place] [address] * Arterial Line (12/01/2024 6:49 AM CDT) Narrative Jos Messina MD - 12/01/2024 6:49 AM CDT Jos Messina MD 12/01/2024 6:49 AM Arterial Line Patient location: pre-op holding Indication: continuous blood pressure monitoring and blood sampling needed Ultrasound assisted: yes Staff: Supervising provider: BetoItzel Ramirez MD PhD Placed by: Resident: Jos Messina MD Procedure prep: Prep solution: chlorhexadine/alcohol Prep: provider hat/mask Arterial line: Catheter size: 20 gauge Catheter length: 1 and 3/4 inch Catheter type: wire-guided catheter Seldinger technique: yes Laterality: right Site: radial artery Line secured: tape and Tegaderm Results: good waveform and good blood return Number of attempts: 1 Assessment: Events: patient tolerated procedure well with no complications us Itzel Del Rio MD PhD ANESTHESIA OR DERABLES Final Result * Prepare RBC: 4 Units (12/01/2024 5:46 AM CDT) Pathologist [facility] Product code [id number] [facility] Unit Number [id number] 6-4 [facility] Product Blood Type OPOS [facility] Dispense Status RETURNED [facility] Product code [id number] Unit Number [id number] 3-P [facility] Product Blood Type OPOS [facility] Dispense Status RETURNED [facility] Product code [id number] [facility] Unit Number [id number] 5-2 [facility] Product Blood Type OPOS [facility] Dispense Status RETURNED [facility] Product code [id number] [facility] Unit Number [id number] 5-2 [facility] Product Blood Type OPOS [facility] Dispense Status RETURNED [facility] Blood 12/01/2024 5:46 AM CDT 12/01/2024 5:45 AM CDT Narrative [facility] - 12/02/2024 7:46 AM CDT Specify Procedure:->TAVR and REPAIR ANEURYSM ASCENDING AORTIC-POSS ASCENDING AORTA REPLACEMENT Are special requirements needed? (All products are leukoreduced and CMV- safe)- >No Date required:-[id number] LRRBC # of [id number] Reasons:-Hold for procedure (specify procedure)} us Carole Ramirez HOLLOW WARE MAKER BLOOD BANK PRODUCT ORDERABL ES Final Result [facility] [place] [address] * JHON Add-On For OR (12/01/2024 5:33 AM CDT) Narrative [facility]IVA[facility]V_CARDIOREPORT_CONS SCIMAGE - 12/01/2024 5:33 AM CDT Procedure Auto Finalized by Rule: BW CV JHON DURING CASE OR Please see the Anesthesiologist's Procedure Note for the results. us Jos Messina MD CV ECHO PROCEDURES Fin al Result [facility] PROSOLV_CARDIOREPORT_CONS SCIMAGE from Last 3 Months Insurance [facility] CHOICE PLUS MEDICARE [facility] MEDICARE [facility] MEDICARE A[employer] Advance Directives For more information, please contact: [phone] Documents on File Type Date Recorded Patient House Carpenter Helper Expl anation ADVANCE DIRECTIVE 12/01/2024 5:49 AM Power of [facility] * Full Code (Latest Code Status on File) Date Activated Date Inactivated Comments 12/01/2024 12:57 PM 12/05/2024 5:07 PM * Full Code Date Activated Date Inactivated Comments 11/15/2024 10:20 AM 11/15/2024 7:01 PM * Full Code Date Activated Date Inactivated Comments 01/31/2019 9:49 PM 02/01/2019 8:29 PM * Full Code Date Activated Date Inactivated Comments 01/31/2019 5:52 PM 01/31/2019 9:49 PM 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
[2025-02-21 07:09] LABS: Calprotectin, Fecal 46 ug/g (0-120)
== END 2025-02-16 14:18 | disposition home or self-care (01) ==
PROVIDERS: PCP Family Medicine; Visit Provider Nurse Practitioner
DX: K51.90 Ulcerative colitis, unspecified, without complications (principal); Z86.0100 Personal history of colon polyps, unspecified
CPT/HCPCS: 83993